=== PATIENT | male | born 1945 | race Caucasian/White ===

== ENCOUNTER 2017-07-20 14:00 | Outpatient (RCR) | payer MEDICARE, OTHER, SELFPAY ==
--- NOTE | 2017-06-30 15:39 | HP.PTEVAL_ITS ---
Patient's Visit Information MARY JOHNSON is a 71 year old M referred to Physical Therapy by Ama WILLIAM with a diagnosis of ONychomycosis, Pes Cavus. Date of Evaluation: 06/30/17 Physical Therapist: Flaca An - Visit Plan Frequency: 1x/Week Duration: 4 Weeks Plan: Orthotics - Subjective Subjective: Saw the modiatrist who told him his great toe is not taking the weight properly. Took a scalpal to them and took the callus off- is now wearing something on the foot to take the pressure off- glued to the insert. Has had foot problems and has used sand paper to wear down the callus on them. Very active. Has one on the side and the bottom- the bottom hurts the most. - Objective Posture: FH, RS. Gait: increased pronation and first ray harder towards flooor. SLS: increased pronation- able to SLS for 5 sec without LOB. HR/TR: WNL. ROM: DF: 5 degrees, PF: 60 degrees, Inver: 30 degrees, Ever: 15 degrees. Strength: 5/5 throughout - Goals Goal 1:: Patient will be fit appropriatly with orthotics Goal Time Frame: 4-6 Weeks Goal 2:: Patient will report 0/10 pain with orthotics Goal Time Frame: 4-6 Weeks Goal 3:: Patient will verbalize understanding of orthotic management and wear Goal Time Frame: 4-6 Weeks - Rehabilitation Potential Physical Therapy Diagnosis: Patient presents with hypmobility- he has increased pain with ADL's Rehabilitation Potential: Good - Anticipated Interventions Thank you for the opportunity to evaluate your patient. For Medicare and Medicare HMO plans, please review the plan of care and approve it. It will need to be FAXED BACK to us at [phone] for Medicare purposes. Please let me know if there are questions or concerns regarding this plan of care. Physician Signature: Date:
--- NOTE | 2017-08-29 10:34 | HP.PT.NRP ---
HP - Discharge Summary (1) - Patient Information MARY JOHNSON was seen in my office for initial evaluation on 06/30/17. The following Plan of Care was established for this patient: Initial Frequency: 1x/Week Initial Duration: 4 Weeks This patient was last seen in our office . Pertinent comments regarding their Physical therapy will appear below: Patient recieved orthotics and is appropriate for d/c At this point I will be discontinuing this patient from physical therapy. I would be happy to see this patient again in the future if found appropriate by the physician. Thank you! Flaca An
== END 2017-07-20 19:00 | disposition home or self-care (01) ==
LOC: PT 14:00
PROVIDERS: Family Provider Family Medicine; PCP Family Medicine; Visit Provider Podiatrist Foot & Ankle Surgery
DX: B35.1 Tinea unguium (principal); L84 Corns and callosities; Q66.7 Congenital pes cavus
CPT/HCPCS: 97161; 97760; 97763

== ENCOUNTER → 2019-01-11 09:52 | Outpatient (CLI) | payer MEDICARE, OTHER, SELFPAY ==
[2018-12-26 10:45] VITALS: BMI 24.3
--- NOTE | 2019-01-11 09:55 | STEWCON_ITS ---
Reason For Study: CAD Stress Results Protocol: Kennedy Protocol Maximum Predicted HR: 147 bpm Target HR: 125 bpm % Maximum Predicted HR: 93 % DurationHeart Rate Stage (mm:ss) (bpm) BP Comment Baseline 56 130/80No Chest Pain; Diluted Definity 3 ML Given Kennedy Protocol Stage I 3:00 90 128/68No Chest Pain Kennedy Protocol Stage II 3:00 107 142/60No Chest Pain Kennedy Protocol Stage III 3:00 125 160/66No Chest Pain Kennedy Protocol Stage IV 1:00 137 / No Chest Pain Recovery 71 118/78No Chest Pain Stress Duration: 10:00 mm:ss Maximum Stress HR: 137 bpm METS: 13 Baseline Echocardiogram Findings The estimated ejection fraction is 65 %. Stress Echo Wall motion Data Resting WM Intermediate WM Stress WM Resting Wall Motion Wall Motion Stress No regional wall motion No regional wall motion abnormalities noted. abnormalities noted. EKG Data The baseline ECG displays normal sinus rhythm. The patient exercised according to the regular Kennedy protocol for a total duration of 10:00. The maximum heart rate attained was 139 beats per minute. This was 94% of maximum predicted heart rate. The patient exercised into stage 4 of the Kennedy protocol. At peak exercise, upsloping ST changes only were noted, which did not meet the criteria for ischemia. No clinical angina was noted. Interpretation Summary The estimated ejection fraction is 65 %. Normal, adequate, treadmill echocardiogram. Negative for ischemia by EKG and echocardiographic criteria. No anginal symptoms noted. Rare PVC noted. Appropriate blood pressure response to exercise. Final LVEF is 75%. Test terminated due to the attainment of target heart rate and dyspnea. Decreased sensitivity due to poor echo windows requiring Definity agent. No complications. The study was technically difficult. Contrast injection was performed. Ordering Physician: Johny Brannon Referring Physician: MD Diana Dominic Performed By: Jairo Sanchez RCS
== END ==
PROVIDERS: Family Provider Family Medicine; PCP Family Medicine; Referring Provider Internal Medicine Cardiovascular Disease; Visit Provider Internal Medicine Cardiovascular Disease
DX: I25.10 Atherosclerotic heart disease of native coronary artery without angina pectoris (principal); I10 Essential (primary) hypertension; I73.9 Peripheral vascular disease, unspecified; E78.5 Hyperlipidemia, unspecified; I25.2 Old myocardial infarction; Z98.890 Other specified postprocedural states; Z95.5 Presence of coronary angioplasty implant and graft
CPT/HCPCS: 93017; 93350; Q9957; A4216; C8928

== ENCOUNTER → 2019-04-09 10:48 | Outpatient (CLI) | payer MEDICARE, OTHER, SELFPAY ==
[2018-12-26 10:45] VITALS: BMI 24.3
[2019-04-09 12:12] LABS: Anion Gap 6 (5-15); Chloride 106 mmol/L (98-107); Sodium Level 142 mmol/L (136-145); Thyroid Stim Hormone (TSH) 3.02 uIU/mL (0.358-3.74)
[2019-04-09 12:24] LABS: Vitamin B12 700 pg/mL (211-911)
== END ==
PROVIDERS: Family Provider Family Medicine; PCP Family Medicine; Referring Provider Psychiatry & Neurology Neurology; Visit Provider Psychiatry & Neurology Neurology
DX: R41.3 Other amnesia (principal)
CPT/HCPCS: 36415; 80051; 82607; 84443

== ENCOUNTER → 2019-04-23 09:20 | Outpatient (CLI) | payer MEDICARE, OTHER, SELFPAY ==
[2018-12-26 10:45] VITALS: BMI 24.3
--- NOTE | 2019-04-23 09:27 | MRI_ITS ---
STUDY: MRI BRAIN WITH AND WITHOUT CONTRAST REASON FOR EXAM: Male, 73 years old. Memory loss TECHNIQUE: Standardized multiplanar fat and water weighted pulse sequences were obtained. IV Dotarem 15 was administered for the contrast portion of the examination. COMPARISON: None. FINDINGS: Mild age appropriate atrophy and minor periventricular white matter hyperintensity consistent with aging white matter. No significant white matter disease or evidence for acute infarct.. Normal bilateral basal ganglia. Normal thalami. There is no extra-axial fluid accumulation. Normal flow voids within the major intracranial circulation suggesting patency by spin echo criteria. Normal venous enhancement. There is no enhancing intra-axial or extra-axial abnormality. Normal sella turcica, pituitary gland, infundibular stalk, optic chiasm and hypothalamus. Normal tectal plate and pineal gland. Normal midbrain, margarito and medulla. Normal cerebellum. Normal basal cisterns. Normal bilateral temporal bones. Normal bilateral internal auditory canals. No demonstrated orbital abnormality, within the constraints of a routine brain study. Minor mucosal thickening of the maxillary and ethmoid sinuses.. Normal calvarium and skull base. Normal visualized soft tissue structures. Normal visualized upper cervical spine. MRI/Brain W/WO Contrast IMPRESSION: Unremarkable MRI of the brain with and without contrast for age. Minor bilateral ethmoid and maxillary sinus disease Electronically Signed: Deven Del Rio MD at 16:34 EST , Service support ,
[2019-04-23 09:56] LABS: CREATININE FINGERSTICK 0.7 mg/dL (0.70-1.30); EGFR FINGERSTICK > 60.0000 mL/min (>60)
== END ==
PROVIDERS: Family Provider Family Medicine; PCP Family Medicine; Referring Provider Psychiatry & Neurology Neurology; Visit Provider Psychiatry & Neurology Neurology
DX: R41.3 Other amnesia (principal)
CPT/HCPCS: 70553; A9575

== ENCOUNTER → 2019-07-11 08:14 | Outpatient (CLI) | payer MEDICARE, OTHER, SELFPAY ==
[2019-07-05 13:54] VITALS: BMI 25.4
[2019-07-11 09:05] LABS: AST(SGOT) 22 U/L (15-37); Alanine Aminotransfer ALT/SGPT 31 U/L (16-61); Albumin, Serum 3.7 g/dL (3.2-5.0); Alkaline Phosphatase 69 U/L (45-117); Bilirubin, Direct 0.18 mg/dL (0.00-0.30); Cholesterol 121 mg/dL (200); Globulin 3.1 g/dL (2.2-4.2); High Density Lipoprotein 53 mg/dL; Protein, Total 6.8 g/dL (6.4-8.2); Triglycerides 61 mg/dL; Very Low Density Lipoprotein 12 mg/dL (5-40)
== END ==
PROVIDERS: PCP Family Medicine; Referring Provider Internal Medicine Cardiovascular Disease; Visit Provider Internal Medicine Cardiovascular Disease
DX: I25.10 Atherosclerotic heart disease of native coronary artery without angina pectoris (principal); E78.5 Hyperlipidemia, unspecified
CPT/HCPCS: 36415; 80061; 80076

== ENCOUNTER 2019-08-03 12:49 | Outpatient (RCR) | payer MEDICARE, OTHER, SELFPAY ==
[2019-07-05 13:54] VITALS: BMI 25.4
--- NOTE | 2019-08-03 13:55 | HP.PTEVAL_ITS ---
Patient's Visit Information MARY JOHNSON is a 73 year old M referred to Physical Therapy by Clari Lopez with a diagnosis of CONGENTIAL PES CAVUS. Date of Evaluation: 08/03/19 Physical Therapist: Augusto Duarte PT, Cert MDT, OCS - Visit Plan Frequency: 2vists Duration: 1 Week - Subjective Subjective: This 73 y/o male presents to physical therapy with physical therapy for pes cavus . Patient requires new orthotics . Patient is very active and does have pain 1st metatarseal with callullus. Thus ,patient will benifit from orthtics due to be active. Patient plays Tennis. Patient denies parathesia/tingling. Pateint conidtion with benifit from fabricated orthotics. SOCAIL: . HOBBIES: Yoga ,Tennis - Objective POSTURE: pes planus. GAIT: normal erika. PALPATION: unremarkable. NEURO: intact. AROM: dorsiflexion 0 degrees,planterflexion 60 degrees,EVERSION 5 degrees,inversion 30 degrees. MMT: ankle stabilizers 4/5. FLEXABLITY: calf min tight - Goals Goal 1:: Patient will be provided with orthotics with appropriate and ensure fitting is appropriate. - Rehabilitation Potential Physical Therapy Diagnosis: This patient has pes cavus thus will benifit from fabraicated orthotics. Rehabilitation Potential: Good - Anticipated Interventions Patient/Client Instruction: Educate patient on: Condition, Plan of Care For the Purpose of:: To decrease pain, Other Other: orthotics Thank you for the opportunity to evaluate your patient. For Medicare and Medicare HMO plans, please review the plan of care and approve it. It will need to be FAXED BACK to us at [phone] for Medicare purposes. For Medicare only, by signing this I certify the plan of care. Please let me know if there are questions or concerns regarding this plan of care. Physician Signature: Date:
--- NOTE | 2020-01-15 09:00 | HP.PT.NRP ---
MARY JOHNSON was seen in my office for initial evaluation on 08/03/19. The following Plan of Care was established for this patient: Initial Frequency: 2vists Initial Duration: 1 Week Patient/Client Instruction: Educate patient on: Condition, Plan of Care For the Purpose of:: To decrease pain, Other Other: orthotics This patient was last seen in our office . Pertinent comments regarding their Physical therapy will appear below: Patient provided with orthotics and D/C At this point I will be discontinuing this patient from physical therapy. I would be happy to see this patient again in the future if found appropriate by the physician. Thank you! Augusto Duarte, PT, Cert MDT, OCS
== END 2019-08-03 19:00 | disposition home or self-care (01) ==
LOC: PT 12:49
PROVIDERS: PCP Family Medicine; Referring Provider Podiatrist; Visit Provider Podiatrist
DX: Q66.70 Congenital pes cavus, unspecified foot (principal)
CPT/HCPCS: 97162; 97760

== ENCOUNTER 2019-12-24 11:56 | Emergency (ER) | payer MEDICARE, OTHER, SELFPAY ==
[2019-07-05 13:54] VITALS: BMI 25.4
[2019-12-24 11:57] VITALS: BP 142/82; PULSE 57; RESP 16; TEMP 36.6; O2SAT 99; BMI 24.3
--- NOTE | 2019-12-24 12:46 | ED.DCSUM_ITS ---
History of Present Illness Chief Complaint: Laceration Informant: Patient Onset: Today Current Severity: Mild Maximum Severity: Mild Narrative: Patient presents with laceration to the distal aspect of the right thumb. He states he caught it on a belt snuff grinder. Tetanus is up-to-date. He is right-hand dominant. - Past Medical History (1) Atherosclerosis of coronary artery without angina pectoris Status: Chronic Comment: Acute NSTEMI. 80% stenosis in large mid LAD, 70% stenosis in a large first diagonal; total occlusion in large right PDA of RCA. RCA itself is normal. Left to right collaterals fill late. LCX: normal per [facility] done by Dr. Pooja Mcallister, [facility] 05/01/13.A 2.5 X 12 Promus Premier to distal PDA of RCA was then subsequently placed by Dr. Mcallister on 05/01/2013. A 3.0 X 24 mm Promus Premier to mid LAD per [facility] 06/21/2013. (2) Essential hypertension Status: Chronic (3) History of non-ST elevation myocardial infarction (NSTEMI) Status: Chronic (4) Hyperlipidemia Status: Chronic (5) Peripheral vascular disease Status: Chronic (6) Stented coronary artery Status: Chronic Comment: 05/01/2013: 2.5 X 12 Promus Premier to distal PDA of RCA. 06/21/2013:3.0 X 24 mm Promus Premier to mid LAD per Dr. Pooja Hussein, [facility] Past Medical History - Allergies and Home Meds Allergies/Adverse Reactions: Allergies mold Allergy (Intermediate, Verified 12/24/19 11:59) nasal congestion, etc. pollen extracts Allergy (Intermediate, Verified 12/24/19 11:59) nasal congestion, etc. ticagrelor [From Brilinta] Allergy (Intermediate, Verified 12/24/19 11:59) Rash doxycycline Allergy (Verified 12/24/19 11:59) Rash Primary Care Physician: Deven Ortiz MD [Primary Care Provider] - Prior records reviewed: Yes Lives: Spouse/ Significant Other Smoking Status: Never smoker Review of Systems General: Denies: Chills, Fever Eyes: Denies: Visual changes - bilaterally ENT: Denies: Bilateral ear pain Cardiovascular: Denies: Chest pain Respiratory: Denies: Dyspnea, Cough Gastrointestinal: Denies: Abdominal pain, Nausea, Vomiting, Diarrhea Musculoskeletal: Reports: Extremity Pain Skin: Reports: Wounds Neurological: Denies: Headache Hematologic: Denies: Easy bruising, Easy bleeding Allergy: Denies: Uticaria Physical Exam Vital Signs/Narrative: Vital Signs Temp Pulse Resp BP Pulse Ox 12/24/19 11:57 97.8 F 57 L 16 142/82 H 99 Inital Vital Signs reviewed: Yes General: Well nourished, Well developed Head: Normocephalic ENT: Moist mucous membranes Neck: Supple Cardiovascular: Regular rate, Regular rhythm Respiratory: No distress, CTA bilaterally Abdomen: Soft Extremities: - - Flap laceration measuring approximately 2 cm in length to the distal aspect of the right thumb. Bleeding controlled at this time. Sensation intact distally with full range of motion. Good cap refill. Neurological: Alert, Oriented x3, Normal Strength, Normal Sensation Psychological: Normal affect Diagnostic/Tx/Re-eval - Medical Decision Making Tetanus is already up-to-date. Thumb is anesthetized with 3 cc of 1% lidocaine in a digital block. Wound is cleansed and closed with 5 simple interrupted sutures of 5-0 nylon. Patient is to have sutures removed in 1 week. Procedures - Lacerations No standard instances Length: 0.79 in Depth: Skin Shape: Flap Prep: Shure-Clens Laceration repair: Digital block Number of Sutures/Paxton: 5 Suture Information: Ethilon, 5-0 ED Disposition - Plan for ED Patient: Disposition: Home or Assisted Living Diagnosis: Thumb laceration Instructions: ED Laceration Hand Referrals: Deven Ortiz MD [Primary Care Provider] - 7 Days for suture removal
[2019-12-24 13:27] VITALS: BP 138/80; PULSE 82; RESP 17; O2SAT 97
== END 2019-12-24 13:28 | disposition home or self-care (01) ==
PROVIDERS: Emergency Provider Emergency Medicine; PCP Family Medicine
DX: S61.011A Laceration without foreign body of right thumb without damage to nail, initial encounter (principal); W31.89XA Contact with other specified machinery, initial encounter; Y93.9 Activity, unspecified; Y92.9 Unspecified place or not applicable; Y99.9 Unspecified external cause status; E78.5 Hyperlipidemia, unspecified; I10 Essential (primary) hypertension; I25.10 Atherosclerotic heart disease of native coronary artery without angina pectoris; I25.2 Old myocardial infarction; I73.9 Peripheral vascular disease, unspecified; Z95.5 Presence of coronary angioplasty implant and graft
CPT/HCPCS: 12001; 99284

== ENCOUNTER → 2020-08-26 07:55 | Outpatient (CLI) | payer MEDICARE, OTHER, SELFPAY ==
[2020-08-13 10:02] VITALS: BMI 25.5
[2020-08-26 09:27] LABS: AST(SGOT) 31 U/L (15-37); Alanine Aminotransfer ALT/SGPT 29 U/L (16-61); Albumin, Serum 3.7 g/dL (3.2-5.0); Alkaline Phosphatase 77 U/L (45-117); Bilirubin, Direct 0.28 mg/dL (0.00-0.30); Cholesterol 116 mg/dL (200); Globulin 2.9 g/dL (2.2-4.2); High Density Lipoprotein 57 mg/dL; Protein, Total 6.6 g/dL (6.4-8.2); Triglycerides 41 mg/dL; Very Low Density Lipoprotein 8 mg/dL (5-40)
== END ==
PROVIDERS: PCP Family Medicine; Referring Provider Nurse Practitioner Family; Visit Provider Nurse Practitioner Family
DX: E78.00 Pure hypercholesterolemia, unspecified (principal); E78.5 Hyperlipidemia, unspecified
CPT/HCPCS: 36415; 80061; 80076

== ENCOUNTER → 2021-03-02 13:00 | Outpatient (CLI) | payer MEDICARE, OTHER, SELFPAY | PROVIDERS: PCP Family Medicine; Referring Provider Physician Assistant Surgical; Visit Provider Physician Assistant Surgical | DX: Z11.52 Encounter for screening for COVID-19 (principal) | CPT/HCPCS: 87635; U0005; U0003 ==

== ENCOUNTER 2021-07-31 08:21 | Outpatient (CLI) | payer MEDICARE, OTHER, SELFPAY ==
[2021-07-31 09:22] LABS: Absolute Lymphocyte Count 0.71 X10^3/uL (0.83-4.51); Absolute Neutrophil Count 3.1 X10^3/uL (2.0-7.7); Basophil# 0.04 X10^3/uL; Basophil% 0.9 % (0-1); Eosinophil# 0.15 X10^3/uL; Eosinophils% 3.3 % (0-5); Hematocrit 40.8 % (40-54); Hemoglobin 13.3 g/dL (13.0-16.5); Lymphocyte # 0.71 X10^3/ul (0.83-4.51); Lymphocyte % 15.8 % (19-41); Mean Corp Hgb Conc 32.6 g/dL (32-36); Mean Corpuscular Hgb 32.2 pg (27.0-32.0); Mean Corpuscular Volume 98.8 fL (80-94); Mean Platelet Vol. 9.6 fl (6.2-12.0); Monocyte# 0.48 X10^3/uL; Monocyte% 10.7 % (0-10); NRBC Flagged by Analyzer 0 % (0-5); Neutrophil # 3.11 X10^3/uL (2.7-7.7); Neutrophil % 69.1 % (47-70); Platelet Count 173 K/mm3 (150-450); RBC Distribution Width CV 14.6 % (11.6-14.6); RBC Distribution Width SD 53.5 fl (35.1-43.9); Red Blood Count 4.13 M/mm3 (4.6-6.2); White Blood Count 4.5 K/mm3 (4.4-11.0)
[2021-07-31 09:55] LABS: AST(SGOT) 22 U/L (15-37); Alanine Aminotransfer ALT/SGPT 27 U/L (16-61); Albumin, Serum 3.8 g/dL (3.2-5.0); Alkaline Phosphatase 70 U/L (45-117); Anion Gap 3 (5-15); BUN 19 mg/dL (7-18); BUN/Creat Ratio 19.2 RATIO (10-20); Bilirubin, Direct 0.18 mg/dL (0.00-0.30); Calcium,Total 8.3 mg/dL (8.5-10.1); Chloride 108 mmol/L (98-107); Cholesterol 120 mg/dL (200); Creatinine, Serum 0.99 mg/dL (0.70-1.30); EST Glomerular Filtration Rate 78 mL/min (>60); Est Glom Filt Rate - Afr Amer 95 mL/min (>60); Globulin 3.3 g/dL (2.2-4.2); Glucose 88 mg/dL (74-106); High Density Lipoprotein 52 mg/dL; Potassium 3.9 mmol/L (3.5-5.1); Protein, Total 7.1 g/dL (6.4-8.2); Sodium Level 139 mmol/L (136-145); Triglycerides 47 mg/dL; Very Low Density Lipoprotein 9 mg/dL (5-40)
== END 2021-07-31 23:59 | disposition home or self-care (01) ==
LOC: LAB 08:24
PROVIDERS: PCP Family Medicine; Visit Provider Nurse Practitioner Gerontology
DX: E78.00 Pure hypercholesterolemia, unspecified (principal); E78.5 Hyperlipidemia, unspecified; R53.83 Other fatigue
CPT/HCPCS: 36415; 80048; 80061; 80076; 85025

== ENCOUNTER → 2023-07-13 | Outpatient (CLI) | payer MEDICARE, OTHER, SELFPAY ==
--- OUTSIDE RECORDS SUMMARY | 2023-07-13 06:58 | XMS RPT_ITS | CCD ---
Author Name Unknown Address [address] [facility] [address] [place] [address] Organization [facility] Care Team Providers Care Knockout Machine Operator Name Role Phone ROLA CHARLES Unavailable Unavailable BRANDI YIN Unavailable Unavailable ROLA CHARLES Unavailable Unavailable ROLA CHARLES Unavailable Unavailable IMCA Unavailable Unavailable Deven Rodriguez Unavailable Unavailable ROLA CHARLES Unavailable Unavailable ROLA CHARLES Unavailable Unavailable Deven Rodriguez Unavailable Unavailable ROLA CHARLES Unavailable Unavailable Deven Rodriguez Unavailable Unavailable ABENA HEATH Admitting Unavailable ABENA HEATH Attending Unavailable ABENA HEATH Referring Unavailable Mami Rodriguez MD Primary Care Provider Mami Rodriguez MD Primary Care Provider Mami Rodriguez MD Primary Care Provider Mami Rodriguez MD Primary Care Provider MAMI RODRIGUEZ Attending Unavailable MAMI RODRIGUEZ Referring Unavailable MAMI RODRIGUEZ Primary Care Unavailable MONICA CHATTERJEE Referring Unavailable MAMI RODRIGUEZ Primary Care Unavailable MAMI RODRIGUEZ Primary Care Unavailable MAMI RODRIGUEZ Attending Unavailable MAMI RODRIGUEZ Primary Care Unavailable Allergies Allergy Classification Reported Allergen(s) Allergy Type Date of Onset Reaction(s) Facility (20 sources) doxycycline; Translations: [DOXYCYCLINE] Drug Allergy 0 [facility] Repository (20 sources) ticagrelor; Translations: [TICAGRELOR] Drug Allergy 4 Itching [facility] Repository (4 sources) OTHER; Translations: [OTHER] Propensity to adverse reactions (disorder) 1 AOF [facility] Other [place] Repository (20 sources) Environmental allergies [Other] Propensity to adverse reactions 1 Other: See Comments [facility] Medications Completed/Discontinued Medications Medication Drug Class(es) Dates Sig (Normalized) Sig (Original) aspirin 81 mg chewable tablet (20 sources) Platelet Aggregation Inhibitor, Nonsteroidal Anti-inflammatory Drug Start: 04-26-2013 take 1 tablet by mouth once daily aspirin 81 mg chewable tablet Take 1 tablet by mouth once daily. 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; Translations: [Coronary arteriosclerosis] Onset: 04-25-2013 06-09-2022 Chronic Delirium, dementia, and amnestic and other cognitive disorders (1 source) Senile dementia; Translations: [Alzheimer's disease with late onset] Chronic Disorders of lipid metabolism (20 sources) Hypercholesterolemia; Translations: [Pure hypercholesterolemia, unspecified] Onset: 08-10-2013 08-10-2013 Chronic Disorders of lipid metabolism (1 source) Pure hypercholesterolemia, unspecified; Translations: [Pure hypercholesterolemia, unspecified] Onset: 08-10-2013 Essential hypertension (20 sources) Essential (primary) hypertension; Translations: [Essential hypertension] Onset: 12-30-2016 12-30-2016 Chronic Hyperplasia of prostate (20 sources) Nocturia due to benign prostatic hypertrophy; Translations: [Benign prostatic hyperplasia with lower urinary tract symptoms] Onset: 06-09-2022 Chronic Immunizations and screening for infectious disease (3 sources) Vaccination given; Translations: [Encounter for immunization] Episodic Other ear and sense organ disorders (17 sources) Hearing loss; Translations: [Unspecified hearing loss, unspecified ear] Onset: 06-09-2022 06-09-2022 Chronic Other ear and sense organ disorders (17 sources) Sensorineural hearing loss, bilateral; Translations: [Sensorineural hearing loss, bilateral] Onset: 06-09-2022 06-09-2022 Chronic Other hereditary and degenerative nervous system conditions (20 sources) Impaired cognition; Translations: [Mild cognitive impairment, so stated] Onset: 03-20-2021 03-20-2021 Chronic Other male genital disorders (20 sources) Male erectile dysfunction, unspecified; Translations: [Impotence of organic origin] Onset: 04-07-2012 04-07-2012 Chronic Other screening for suspected conditions (not mental disorders or infectious disease) (1 source) Patient encounter status; Translations: [Encounter for screening for cardiovascular disorders] Episodic Other upper respiratory disease (20 sources) Allergic rhinitis; Translations: [Allergic rhinitis, unspecified] Onset: 11-30-2010 11-30-2010 Chronic Peripheral and visceral atherosclerosis (20 sources) Peripheral vascular disease; Translations: [Peripheral vascular disease, unspecified] Onset: 04-25-2013 Chronic Residual codes; unclassified (17 sources) Sleep apnea; Translations: [Sleep apnea, unspecified] Onset: 06-09-2022 06-09-2022 Chronic Residual codes; unclassified (1 source) Amnestic disorder; 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] Episodic Unclassified (1 source) Unknown / UNK(Unknown) Onset: 07-04-2017 Past or Other Problems Problem Classification Problem Date Documented Da te Episodic/Chronic Abdominal hernia (20 sources) Unilateral inguinal hernia, without obstruction or gangrene, not specified as recurrent; Translations: [Unilateral inguinal hernia] Onset: 01-19-2010 01-19-2010 Episodic Allergic reactions (20 sources) Solar degeneration; Translations: [Other skin changes due to chronic exposure to nonionizing radiation] Onset: 11-23-2013 11-23-2013 Episodic Coronary atherosclerosis and other heart disease (20 sources) Stent in anterior descending branch of left coronary artery; Translations: [Presence of coronary angioplasty implant and graft] Onset: 08-19-2014 08-19-2014 Episodic Other skin disorders (20 sources) Actinic keratosis; Translations: [Actinic keratosis] Onset: 11-23-2013 11-23-2013 Episodic Other skin disorders (20 sources) Solar lentigo; Translations: [Other melanin hyperpigmentation] Onset: 11-23-2013 11-23-2013 Episodic Other skin disorders (20 sources) Seborrheic keratosis; Translations: [Other seborrheic keratosis] Onset: 11-23-2013 11-23-2013 Episodic Other skin disorders (20 sources) Asteatosis cutis; Translations: [Xerosis cutis] Onset: 11-23-2013 11-23-2013 Episodic Other skin disorders (20 sources) Changes in skin texture; Translations: [Other skin changes] Onset: 12-23-2013 12-23-2013 Episodic Results Test Name Value Interpretation Reference Range Facil ity Vital Signs Date Time Vital Sign Value Performing Clinician Sd lo 06-09-2022 16:04-0500 Body height 177.8 cm Mami Rodriguze MD Work Phone: [facility] 06-09-2022 16:04-0500 Body weight 78.47 kg Mami Rodriguez MD Work Phone: [facility] 06-09-2022 16:04-0500 Diastolic blood pressure 75 mm[Hg] Mami Rodriguez MD Work Phone: [facility] 06-09-2022 16:04-0500 Heart rate 69 /min Mami Rodriguez MD Work Phone: [facility] 06-09-2022 16:04-0500 SaO2% (BldA) [Mass fraction] 98 % Mami Rodriguez MD Work Phone: [facility] 06-09-2022 16:04-0500 Systolic blood pressure 127 mm[Hg] Mami Rodriguez MD Work Phone: [facility] 11-09-2021 12:35-0400 Diastolic blood pressure 89 mm[Hg] Belem Rg APRN.DELIVERY STOCK CLERK Work Phone: [facility] 11-09-2021 12:35-0400 Heart rate 63 /min Belem Rg VRT MECHANIC.DELIVERY STOCK CLERK Work Phone: [facility] 11-09-2021 12:35-0400 Systolic blood pressure 169 mm[Hg] Belem Rg VRT MECHANIC.DELIVERY STOCK CLERK Work Phone: [facility] Encounters Encounter Date Encounter Type Care Provider Facility Start: 04-23-2023 Refill Monica Chatterjee A PRN.DELIVERY STOCK CLERK Work Phone: Family Practice Procedures Date Procedure Procedure Detail Performing Clinician Start: 10-19-2022 [facility] COVI D-19 BIVALENT VACCINE, AGE 12+ YR Monica Chatterjee VRT MECHANIC.DELIVERY STOCK CLERK Work Phone: Start: 10-12-2021 [facility]-B[facility] COVI D-19 VACCINE, AGE 12+ YR (FALCON TOP) Mami Rodriguez MD Work Phone: Start: 07-07-2021 Adult depression screening assessment Rico Pelayo Jr., MD Work Phone: Start: 05-30-2018 Colonoscopy Rico daley Jr., MD Work Phone: Start: 08-19-2014 History of placement of stent for coronary artery disease S/P right coronary artery (RCA) stent placement Rico Pelayo Jr., MD Work Phone: Plan of Treatment Date Care Activity Detail Author Start: 10-29-2031 Urine microalbumin profile [facility] Start: 05-05-2030 Urine microalbumin profile DTAP,TDAP,TD (3 - Td or Tdap) [facility] Start: 05-30-2028 Colonoscopy COLONOSCOPY [facility] Start: 05-30-2028 COLORECTAL CANCER SCREENING COLORECTAL CANCER SCREENING [facility] Start: 03-24-2026 LIPID SCREEN LIPID SCREEN [facility] Start: 12-14-2025 DIABETES SCREEN DIABETES SCREEN [facility] Start: 12-14-2025 Diabetes Screening Diabetes Screening [facility] Start: 03-24-2024 DIABETES SCREEN DIABETES SCREEN [facility] Start: 02-17-2024 Annual PCP Team Chronic Disease Visit Annual PCP Team Chronic Disease Visit [facility] Start: 02-17-2024 BP Controlled (<130/80) BP Controlled (<130/80) [facility] Start: 12-15-2023 Hepatitis B surface antibody level LDL CHOLESTEROL [facility] Start: 06-09-2023 ANNUAL PCP TEAM CHRONIC DISEASE VISIT ANNUAL PCP TEAM CHRONIC DISEASE VISIT [facility] Start: 06-09-2023 BP CONTROLLED (<130/80) BP CONTROLLED (<130/80) [facility] Start: 01-21-2023 Influenza vaccination [facility] Start: 07-07-2022 Adult depression screening assessment DEPRESSION SCREENING [facility] Start: 06-09-2022 End: 08-09-2022 Comprehensive metabolic 2000 panel - Serum or Plasma COMP METABOLIC PANEL Lab Routine Essential hypertension Expected: 06/09/2022, Expires: 08/09/2022 [facility] Work Phone: Immunizations Immunization Date Immunization Notes Care Provider John ndiaye 04-01-2023 respiratory syncytia l virus (RSV) vaccine, bivalent (ABRYSVO) Monica Chatterjee APRN.DELIVERY STOCK CLERK Work Phone: [facility] 02-10-2023 COVID-19 vaccine, ag e 12+ yr, season (PFIZER-BIONTECH) Belem Rg APRN.DELIVERY STOCK CLERK Work Phone: [facility] 02-10-2023 influenza (aIIV4) vaccine, age 65+ yr, quadrivalent, PF (FLUAD QUAD) Belem Rg APRN.DELIVERY STOCK CLERK Work Phone: [facility] 10-19-2022 COVID-19 vaccine, ag e 12+ yr, bivalent (PFIZER-BIONTECH) Nurse Work Phone: [facility] 02-20-2022 influenza (aIIV4) vaccine, age 65+ yr, quadrivalent, PF (FLUAD QUADRIVALENT) Mami Rodriguez MD Work Phone: [facility] 02-20-2022 influenza nasal, unspecified formulation Belem Rg APRN.DELIVERY STOCK CLERK Work Phone: [facility] 02-20-2022 influenza virus vacc ine, unspecified formulation Rico Pelayo Jr., MD Work Phone: [facility] 10-28-2021 tetanus toxoid, redu karen diphtheria toxoid, and acellular pertussis vaccine, adsorbed Mami Rodriguez MD Work Phone: [facility] 10-12-2021 COVID-19 vaccine, ag e 12+ yr (P[facility]ZER-BIONTECH - FALCON TOP) Belem Rg APRN.DELIVERY STOCK CLERK Work Phone: [facility] 02-23-2021 COVID-19 vaccine, ag e 12+ yr (PFIZER-BIONTECH - PURPLE TOP) Belem Rg APRN.DELIVERY STOCK CLERK Work Phone: [facility] 02-20-2021 influenza nasal, unspecified formulation Mami Rodriguez MD Work Phone: [facility] 02-09-2021 influenza, high dose seasonal, preservative-free Rico Pelayo Jr., MD Work Phone: [facility] 07-14-2020 COVID-19 vaccine, ag e 12+ yr ([facility] Rico Pelayo Jr., MD Work Phone: [facility] 06-23-2020 COVID-19 vaccine, ag e 12+ yr ([facility]) Rico Pelayo Jr., MD Work Phone: [facility] 05-05-2020 tetanus toxoid, redu karen diphtheria toxoid, and acellular pertussis vaccine, adsorbed Rico Pelayo Jr., MD Work Phone: [facility] 01-28-2020 influenza, injectabl e, quadrivalent, contains preservative Rico Pelayo Jr., MD Work Phone: [facility] 01-28-2020 unknown vaccine or immune globulin Rico Pelayo Jr., MD Work Phone: [facility] 01-22-2020 influenza nasal, unspecified formulation Mami Rodriguez MD Work Phone: [facility] 12-27-2019 zoster vaccine recombinant Rico Pelayo Jr., MD Work Phone: [facility] 07-20-2019 zoster vaccine recombinant Rico Pelayo Jr., MD Work Phone: [facility] 01-30-2019 Seasonal trivalent influenza vaccine, adjuvanted, preservative free Rico Pelayo Jr., MD Work Phone: [facility] 02-20-2018 influenza, high dose seasonal, preservative-free Rico Pelayo Jr., MD Work Phone: [facility] 02-12-2017 tetanus toxoid, redu karen diphtheria toxoid, and acellular pertussis vaccine, adsorbed Rico Pelayo Jr., MD Work Phone: [facility] 01-06-2017 Seasonal trivalent influenza vaccine, adjuvanted, preservative free Rico Pelayo Jr., MD Work Phone: [facility] 05-25-2016 pneumococcal conjuga te vaccine, 13 valent Rico Pelayo Jr., MD Work Phone: [facility] 04-08-2016 influenza, seasonal, injectable Rico Pelayo Jr., MD Work Phone: [facility] 04-08-2016 influenza, seasonal, injectable, preservative free Rico Pelayo Jr., MD Work Phone: [facility] 03-23-2015 influenza, high dose seasonal, preservative-free Rico Pelayo Jr., MD Work Phone: [facility] 02-20-2015 influenza nasal, unspecified formulation Mami Rodriguez MD Work Phone: [facility] 02-20-2015 pneumococcal conjuga te vaccine, 13 valent Mami Rodriguez MD Work Phone: [facility] 06-15-2014 pneumococcal polysaccharide vaccine, 23 valent Rico Pelayo Jr., MD Work Phone: [facility] 02-20-2014 influenza nasal, unspecified formulation Mami Rodriguez MD Work Phone: [facility] 02-26-2013 influenza virus vacc ine, unspecified formulation Rico Pelayo Jr., MD Work Phone: [facility] 01-21-2013 influenza nasal, unspecified formulation Mami Rodriguez MD Work Phone: [facility] 03-03-2011 influenza virus vacc ine, unspecified formulation Rico Pelayo Jr., MD Work Phone: [facility] Work Phone: 09-20-2008 pneumococcal polysaccharide vaccine, 23 valent Rico Pelayo Jr., MD Work Phone: [facility] 09-20-2008 pneumococcal vaccine , unspecified formulation Mami Rodriguez MD Work Phone: [facility] Payers Date Payer Category Payer Unknown [id number] [address] [facility] [id number] 2013-Present [phone] [address] [place] [address] Indemnity [id number] 2013 Private Health Insurance [id number] 2010 Medicare MEDICARE MEDICAR E A AND B [id number] 2010-Present [phone] [place] [address] Medicare [id number] 2010 Medicare MEDICARE MEDICAR E A AND B [id number] 2010-Present [phone] [place] [address] Medicare [id number] 2010 Medicare [id number] Medicare [id number] Social History Date Type Detail Facility Start: 06-05-2013 End: 06-09-2022 Tobacco smoking status NHIS Never smoked tobacco [facility] Start: 07-08-2021 End: 02-16-2023 Alcohol intake Ex-drinker (finding) [facility] Start: 03-22-2021 History SDOH Alcohol Frequency 1 [facility] Start: 03-07-2020 History SDOH Alcohol Std Drinks 98 [facility] Start: 03-22-2021 History SDOH Social Connections Phone 3 [facility] Start: 03-22-2021 History SDOH Social Connections Get Together 2 [facility] Start: 03-22-2021 History SDOH Physical Activity MPS 4 [facility] Start: 03-22-2021 History SDOH Financial 5 [facility] Start: 03-07-2020 Education 17 [facility] Start: 1945 Sex Assigned At Male [facility] Start: 09-15-2021 End: 11-09-2021 Exposure to SARS-CoV-2 (event) Not sure [facility] Work Phone: Start: 10-24-2021 End: 11-03-2021 Exposure to SARS-CoV-2 (event) Unable to assess [facility] Work Phone: Start: 06-05-2013 End: 06-09-2022 Tobacco use and exposure Smokeless tobacco non-user [facility] Start: 06-09-2022 End: 02-16-2023 History of Social function [facility] Work Phone: Start: 06-09-2022 End: 02-16-2023 Tobacco use panel [facility] Work Phone: Adult Depression Screening Assessment 0 [facility] Work Phone: Start: 03-15-2020 Gender identity Identifies as male gender (finding) [facility] Start: 03-15-2020 Sexual orientation Heterosexual (finding) [facility] Do you belong to any clubs or organizations such as sabianism groups, unions, [employer] or athletic groups, or school groups? No [facility] Are you now , , , , never or living with a partner? [facility] How often to you hav e a drink containing alcohol? Never [facility] Do you feel stress - tense, restless, nervous, or anxious, or unable to sleep at night because your mind is troubled all the time - these days [OSQ] To some extent [facility] (I/We) worried gato er (my/our) food would run out before (I/we) got money to buy more. Never true [facility] Medical Equipment Procedure Code Equipment Code Equipment Origin al Text Equipment Identifier Dates Plug Perfix Bard Small Taper Polypropylene 1.35x1in Surgical Monofilament - [id number] Start: 06-21-2018 Clinical Notes 04-25-2013 to 04-23-2023 Telephone Encounter - Kellen Reyes LPN - 04/23/2023 10:46 AM ESTTelephone Encounter - Kierra Munoz - 02/22/2023 11:45 AM EDTTelephone Encounter - Margaret Condon, Pradeep - 02/14/2023 8:02 AM EDT Note Date & Type Note Facility 04-23-2023 Miscellaneous Notes Last appointment: 02/16/23 Next appointment: 08/17/23 Pharmacy verified in Epic. Refill(s) requested: Requested Prescriptions Pending Prescriptions Disp Refills tamsulosin (FLOMAX) 0.4 mg [Pharmacy Med Name: Tamsulosin HCl 0.4 MG Oral Capsule] 90 capsule 0 Sig: take 1 capsule by mouth at bedtime as needed Order(s) pended. Please advise. Kellen Reyes LPN, HANDWRITING EXPERT documented in this encounter [facility] 02-22-2023 Miscellaneous Notes lvm to pt , patient is due for a follow up documented in this encounter [facility] 02-16-2023 Note HNO ID: [id number] Author: Mami Rodriguez MD Service: ? Author Type: Physician Type: Progress Notes Filed: 02/17/2023 7:26 AM Note Text: CHIEF COMPLAINT Patient presents with: 6 Month Exam HISTORY OF PRESENT ILLNESS Mary Menjivar is a 77 year old male who presents here today for 6 month follow up. I last saw this patient on 06/09/2022. - Feels that he is generally doing well BPH/Overactive Bladder - Well managed - Currently managed on myrbetriq 50 mg tablet once daily, finasteride 5 mg tablet once daily and flomax 0.4 mg capsule at bedtime as needed - Improvement of symptoms; urgency and nocturia Alzheimer's - Currently managed on memantine 10 mg tablet - Adherent to regimen - Tolerating well - Admits to some brain fog Hypertension - Currently managed on Losartan 50 mg tablet once daily - Adherent to regimen - Denies side effects - Denies chest pain, shortness of breath or lightheadedness - Has received Covid-19 vaccine last week via pharmacy at [facility] Maintenance Due for Advanced Directive Discussion Labs reviewed. Past medical history, appointments, medications, allergies reviewed. REVIEW OF SYSTEMS General: Feels well, no weight changes, fevers or chills. HEENT: No sinus congestion, earache, sore throat. Cardiac: No chest pain, palpitations Resp: No cough, wheeze, shortness of breath GI: No reflux symptoms, food intolerance, bowel changes. : No urinary frequency, dysuria. MS: No pain or joint complaints. PAST MEDICAL HISTORY PAST MEDICAL HISTORY Diagnosis Date CAD (coronary artery disease) 04/25/2013 History: not know prior. Was not on a statin or asa. Assessment: Pt now admitted with NSTEMI. Plan: - ASA, statin started - lipid panel - [facility] Essential hypertension 12/30/2016 Fracture nose, collar bone, fingers, toes from previous sports injuries. Hayfever Hernia, inguinal Hyperlipidemia 05/04 NSTEMI (non-ST elevated myocardial infarction) (HCC) 04/25/2013 Peripheral vascular disease (HCC) Personal history of unspecified urinary disorder PHYSICAL EXAMINATION BP 126/75 Pulse 67 Ht 177.8 cm (5' 10 ) Wt 78.9 kg (174 lb) SpO2 97% BMI 24.97 kg/m? General: Alert, well developed, well nourished, no distress, pleasant and cooperative. Heart: Regular rate and rhythm. Normal S1 and S2. No murmurs, rubs, or gallops. Lungs: Clear to auscultation bilaterally. No respiratory distress. No wheezes, rales, or rhonchi. Abdomen: Soft, non-tender, no distention. Extremities: Feet/ankles without edema, posterior tibial pulses full and symmetrical. Data Reviewed Component Latest Ref Rng AND Units 12/14/2022 Protein, Total 6.3 - 8.0 g/dL 6.4 Albumin 3.9 - 4.9 g/dL 4.1 Calcium 8.5 - 10.2 mg/dL 9.1 Bilirubin, Total 0.2 - 1.3 mg/dL 0.4 Alkaline Phosphatase 38 - 113 U/L 65 AST 14 - 40 U/L 29 ALT 10 - 54 U/L 19 Glucose 74 - 99 mg/dL 93 BUN 9 - 24 mg/dL 15 Creatinine 0.73 - 1.22 mg/dL 0.99 Sodium 136 - 144 mmol/L 143 Potassium 3.7 - 5.1 mmol/L 4.4 Chloride 97 - 105 mmol/L 107 (H) CO2 22 - 30 mmol/L 28 Anion Gap 9 - 18 mmol/L 8 (L) eGFR >=60 mL/min/1.73mA? 78 WBC 3.70 - 11.00 k/uL 4.76 RBC 4.20 - 6.00 m/uL 3.87 (L) Hemoglobin 13.0 - 17.0 g/dL 12.8 (L) Hematocrit 39.0 - 51.0 % 37.5 (L) MCV 80.0 - 100.0 fL 96.9 MCH 26.0 - 34.0 pg 33.1 MCHC 30.5 - 36.0 g/dL 34.1 RDW-CV 11.5 - 15.0 % 15.1 (H) Platelet Count 150 - 400 k/uL 167 MPV 9.0 - 12.7 fL 10.0 Absolute nRBC <0.01 k/uL <0.01 Cholesterol, Total <200 mg/dL 127 Triglyceride <150 mg/dL 68 HDL Cholesterol >39 mg/dL 50 Non HDL Cholesterol <130 mg/dL 77 Fasting Time hrs 15 VLDL Cholesterol <30 mg/dL 14 TC:HDL Ratio <5.10 2.54 LDL Cholesterol <100 mg/dL 63 LDL:HDL Ratio <2.54 1.26 Assessment/Plan (I10) Essential hypertension (primary encounter diagnosis) Comment: Well controlled Plan: Continue current regimen (I25.10) Coronary artery disease involving lovelock coronary artery of lovelock heart without angina pectoris Comment: asymptomatic. Bp well controlled. Plan: Continue current regimen BPH: he's not necessarily keen to follow up w/ urology at this time, content to maintain current RX through PCP (G30.1, F02.B0) Moderate late onset Alzheimer's dementia without behavioral disturbance, psychotic disturbance, mood disturbance, or anxiety (HCC) Comment: gradual decline with well maintained functionality at home. Plan: maintain Rx Namenda. Requested Prescriptions No prescriptions requested or ordered in this encounter RTO: 6 months Scribe Attestation: By signing my name below, I, Juan Carlos Issa, attest that this documentation has been prepared under the direction and in the presence of Deven Rodriguez M.D. Electronically Signed: Issa Massey. February 16, 2023 2:17 PM Provider Attestation: I, Mami Kontak, MD, personally performed the services described in this documentation. All medical record entries made by the scri (more content not included)... [facility] 02-14-2023 Miscellaneous Notes Pharmacy called requesting the following refill. Requested Prescriptions Pending Prescriptions Disp Refills MYRBETRIQ 50 mg Tb24 [Pharmacy Med Name: Myrbetriq 50 MG Oral Tablet Extended Release 24 Hour] 90 tablet 3 Sig: Take 1 tablet by mouth once daily Patient last appointment: 11/22/2022 Patient Phone numbers: [phone] (home) Request is for script(s) to be escript to pharmacy. Pradeep Robles Ma documented in this encounter [facility] 01-25-2023 Miscellaneous Notes Pharmacy verified in Epic Patient has been identified by name and date of : Yes Patient aware RX will be sent to pharmacy. No need to notify patient. Pharmacy phones for refill(s): Requested Prescriptions Pending Prescriptions Disp Refills losartan (COZAAR) 50 mg tablet [Pharmacy Med Name: Losartan Potassium 50 MG Oral Tablet] 90 tablet 0 Sig: Take 1 tablet by mouth once daily Date of last office visit : 06/09/2022 Date of next office visit : 02/16/2023 Last 2 Encounter Wt Readings: Date: Wt: 06/09/2022 78.5 kg (173 lb) 09/25/2021 80.5 kg (177 lb 6.4 oz) Blood Pressure: BUN (mg/dL) Date Value 12/14/2022 15 03/24/2021 18 Creatinine (mg/dL) Date Value 12/14/2022 0.99 03/24/2021 1.13 Sodium (mmol/L) Date Value 12/14/2022 143 03/24/2021 139 Potassium (mmol/L) Date Value 12/14/2022 4.4 03/24/2021 4.7 Last 1 Encounter BP Readings: Date: BP: 06/09/2022 127/75 Please advise. Elinor Flores LPN documented in this encounter [facility] 01-17-2023 Miscellaneous Notes Pharmacy verified in [facility] Patient has been identified by name and date of : Yes Patient aware RX will be sent to pharmacy. No need to notify patient. Pharmacy phones for refill(s): Requested Prescriptions Pending Prescriptions Disp Refills tamsulosin (FLOMAX) 0.4 mg [Pharmacy Med Name: Tamsulosin HCl 0.4 MG Oral Capsule] 90 capsule 0 Sig: TAKE 1 CAPSULE BY MOUTH AT BEDTIME NEEDED Date of last office visit : 06/09/2022 Date of next office visit : 02/16/2023 Last 2 Encounter Wt Readings: Date: Wt: 06/09/2022 78.5 kg (173 lb) 09/25/2021 80.5 kg (177 lb 6.4 oz) Not applicable Please advise. Elinor Flores LPN documented in this encounter [facility] 12-06-2022 Miscellaneous Notes Received f/u visit summary status post stent from [facility]. Placed in provider's inbox for review. Route to [place] love. documented in this encounter [facility] 11-24-2022 Miscellaneous Notes Patient called requesting the following refill. Requested Prescriptions Pending Prescriptions Disp Refills MYRBETRIQ 50 mg Tb24 [Pharmacy Med Name: Myrbetriq 50 MG Oral Tablet Extended Release 24 Hour] 90 tablet 0 Sig: Take 1 tablet by mouth once daily Patient last appointment: 08/21/2022 Patient Phone numbers: [phone] (home) Request is for script(s) to be escript to pharmacy. Augusto Patton MA documented in this encounter [facility] 10-28-2022 Miscellaneous Notes Patient has been identified by name and date of : Yes Requested Prescriptions Pending Prescriptions Disp Refills tamsulosin (FLOMAX) 0.4 mg [Pharmacy Med Name: Tamsulosin HCl 0.4 MG Oral Capsule] 90 capsule 0 Sig: TAKE 1 CAPSULE BY MOUTH AT BEDTIME NEEDED RX INSTRUCTIONS: Patient aware RX will be sent to pharmacy. No need to notify patient. Penny Carnes Pss documented in this encounter [facility] 10-19-2022 Note HNO ID: [id number] Author: Elinor Flores LPN Service: ? Author Type: LICENSED NURSE Type: Progress Notes Filed: 10/19/2022 10:29 AM Note Text: Patient seen for Covid booster. Administered in right deltoid. Patient tolerated well. [facility] 10-19-2022 History of Present illness Narrative Patient seen for Covid booster. Administered in right deltoid. Patient tolerated well. documented in this encounter [facility] 09-06-2022 Miscellaneous Notes The following approved medication requests have been transmitted electronically. Requested Prescriptions Signed Prescriptions Disp Refills memantine (NAMENDA) 10 mg tablet 180 tablet 1 Sig: Take 1 tablet by mouth twice daily. Authorizing Provider: BELEM RG Ordering User: ROSETTE PENA APRN.SIGNALING DESIGN ENGINEER 09/06/2022 Source : call from pharmacy requesting refill. Delivery : e-script Pending Prescriptions: Disp Refills memantine (NAMENDA) 10 mg tablet 180 ta*3 Sig: Take 1 tablet by mouth twice daily. DX : NA Patient last seen 12/10/2021 Next Appointment : NYA Vizcarra documented in this encounter [facility] 03-20-2023 Miscellaneous Notes The following approved medication requests have been transmitted electronically. Requested Prescriptions Signed Prescriptions Disp Refills finasteride (PROSCAR) 5 mg tablet 90 tablet 3 Sig: TAKE 1 TABLET BY MOUTH ONCE DAILY TO SHRINK PROSTATE Authorizing Provider: MAMI RODRIGUEZ MD Pharmacy verified in [facility] Patient has been identified by name and date of : Yes Patient aware RX will be sent to pharmacy. No need to notify patient. Pharmacy phones for refill(s): Requested Prescriptions Pending Prescriptions Disp Refills finasteride (PROSCAR) 5 mg tablet [Pharmacy Med Name: Finasteride 5 MG Oral Tablet] 90 tablet 0 Sig: TAKE 1 TABLET BY MOUTH ONCE DAILY TO SHRINK PROSTATE Date of last office visit : 06/09/2022 Date of next office visit : Visit date not found Last 2 Encounter Wt Readings: Date: Wt: 06/09/2022 78.5 kg (173 lb) 09/25/2021 80.5 kg (177 lb 6.4 oz) Not applicable Please advise. Elinor Flores LPN documented in this encounter [facility] 08-02-2022 Miscellaneous Notes The following approved medication requests have been transmitted electronically. Requested Prescriptions Signed Prescriptions Disp Refills losartan (COZAAR) 50 mg tablet 90 tablet 0 Sig: Take 1 tablet by mouth once daily Authorizing Provider: MAMI RODRIGUEZ MD Pharmacy verified in [facility]. Patient has been identified by name and date of : Yes Patient aware RX will be sent to pharmacy. No need to notify patient. Patient phones for refill(s): Requested Prescriptions Pending Prescriptions Disp Refills losartan (COZAAR) 50 mg tablet [Pharmacy Med Name: Losartan Potassium 50 MG Oral Tablet] 90 tablet 0 Sig: Take 1 tablet by mouth once daily Date of last office visit : 06/09/2022 Date of next office visit : Visit date not found Last 2 Encounter Wt Readings: Date: Wt: 06/09/2022 78.5 kg (173 lb) 09/25/2021 80.5 kg (177 lb 6.4 oz) Blood Pressure: BUN (mg/dL) Date Value 03/24/2021 18 Creatinine (mg/dL) Date Value 03/24/2021 1.13 Sodium (mmol/L) Date Value 03/24/2021 139 Potassium (mmol/L) Date Value 03/24/2021 4.7 Last 1 Encounter BP Readings: Date: BP: 06/09/2022 127/75 Please advise. Parisa Bedoya MA documented in this encounter [facility] 07-22-2022 Miscellaneous Notes 1st attempt to reach to reschedule 02/21/[address] Diana Anna message sent. Trinidad Peters documented in this encounter [facility] 06-21-2022 Miscellaneous Notes Message left for Mary Menjivar To return call to [phone] to discuss participation in research study. documented in this encounter [facility] 06-09-2022 Note HNO ID: [id number] Author: Mami Rodriguez MD Service: ? Author Type: Physician Type: Progress Notes Filed: 06/09/2022 5:44 PM Note Text: CHIEF COMPLAINT Patient presents with: Follow Up HISTORY OF PRESENT ILLNESS Mary Menjivar is a 76 year old male who presents here today for follow up management of multiple medical issues. I last saw this patient on 03/24/2021. COVID Patient had COVID near the new year. He had the Paxlovid treatment Alzheimer's Patient has a family history of the disease. He says that he is doing well. Patient has been watching his diet. BPH adherent to current regimen without side effects from medication. No current symptoms. He is currently following a urologist. Health Maintenance Due for COVID-19 booster Due for influenza Due for LDL cholesterol Due for depression screening Labs reviewed. Past medical history, appointments, medications, allergies reviewed. REVIEW OF SYSTEMS Pertinent positives/ negatives: General: Feels well, no fever, no chills. HEENT: No sinus congestion, earache, sore throat. Cardiac: No chest pain, palpitations Resp: No cough, wheeze, shortness of breath GI: No reflux symptoms, food intolerance, bowel changes. : No urinary frequency, dysuria. MS: No pain or joint complaints. PAST MEDICAL HISTORY PAST MEDICAL HISTORY Diagnosis Date CAD (coronary artery disease) 04/25/2013 History: not know prior. Was not on a statin or asa. Assessment: Pt now admitted with NSTEMI. Plan: - ASA, statin started - lipid panel - [facility] Essential hypertension 12/30/2016 Fracture nose, collar bone, fingers, toes from previous sports injuries. Hayfever Hernia, inguinal Hyperlipidemia 05/04 NSTEMI (non-ST elevated myocardial infarction) (HCC) 04/25/2013 Peripheral vascular disease (HCC) Personal history of unspecified urinary disorder PHYSICAL EXAMINATION BP 127/75 Pulse 69 Ht 177.8 cm (5' 10 ) Wt 78.5 kg (173 lb) SpO2 98% BMI 24.82 kg/m? General: Alert, well developed, well nourished, no distress, pleasant and cooperative. Heart: Regular rate and rhythm. Normal S1 and S2. No murmurs, rubs, or gallops. Lungs: Clear to auscultation bilaterally. No respiratory distress. No wheezes, rales, or rhonchi. Abdomen: Soft, non-tender, no distention. Extremities: Feet/ankles without edema, posterior tibial pulses full and symmetrical. Data Reviewed Latest Reference Range AND Units 10/27/21 11:12 11/09/21 10:33 11/09/21 11:15 11/09/21 11:16 UltraSens C-Reactive Protein <3.1 mg/L 0.4 Interpretation SEE NOTE CSF Albumin 10.0 - 30.0 mg/dL 23.1 IgG, Serum 700-1,600 mg/dL 1,044 Albumin, Serum 3,900-4,900 mg/dL 4,000 Immunoglobulin G, CSF 1.0 - 3.0 mg/dL 2.9 IgG/Albumin Ratio 0.06 - 0.17 0.13 SIGNALING DESIGN ENGINEER IgG Synthesis 0.0 - 3.0 mg/day 0.0 IgG Index 0.00 - 0.61 0.48 Comment SEE NOTE WBC 3.70 - 11.00 k/uL 4.86 5.05 RBC 4.20 - 6.00 m/uL 3.80 (L) 3.98 (L) Hemoglobin 13.0 - 17.0 g/dL 12.4 (L) 12.7 (L) Hematocrit 39.0 - 51.0 % 38.6 (L) 39.5 Platelet Count 150 - 400 k/uL 162 141 (L) MCV 80.0 - 100.0 fL 101.6 (H) 99.2 MCH 26.0 - 34.0 pg 32.6 31.9 MCHC 30.5 - 36.0 g/dL 32.1 32.2 MPV 9.0 - 12.7 fL 10.0 9.3 RDW-CV 11.5 - 15.0 % 14.8 14.6 DTYPE Auto Auto Neut% % 68.0 73.4 Abs Neut (ANC) 1.45 - 7.50 k/uL 3.30 3.71 Lymph% % 19.1 14.1 Abs Lymph 1.00 - 4.00 k/uL 0.93 (L) 0.71 (L) [place]% % 8.6 7.1 Abs [place] <0.87 k/uL 0.42 0.36 Eosin% % 3.5 4.2 Abs Eosin <0.46 k/uL 0.17 0.21 Baso% % 0.6 0.8 Abs Baso <0.11 k/uL 0.03 0.04 Immature Gran % % 0.2 0.4 IMMATURE GRANS (ABS) <0.10 k/uL <0.03 <0.03 NRBC /100 WBC 0.0 0.0 Absolute nRBC <0.01 k/uL <0.01 <0.01 WSR 0 - 15 mm/hr 2 CSF Tube Nbr Tube 4 Color, CSF Colorless Colorless Supernatant Color, CSF Colorless Not Indicated Clarity, CSF Clear Clear Supernatant Clarity, CSF Clear Not Indicated VDRL, CSF Nonreactive Nonreactive RBC, CSF 0 - 5 cells/uL 161 (H) Total Nucleated Cells, CSF 0 - 5 cells/uL 0 DIF TTL, CSF cells counted 100 Neut%, CSF 0 - 3 % 6 (H) Lymph%, CSF 50 - 90 % 84 [place]%, CSF 10 - 50 % 10 Protein, CSF 15 - 45 mg/dL 40 Glucose, CSF 40 - 70 mg/dL 54 Method: SEE NOTE References SEE NOTE Technical Results SEE NOTE (L): Data is abnormally low (H): Data is abnormally high Assessment/Plan (I10) Essential hypertension (primary encounter diagnosis) Comment: well controlled Plan: COMP METABOLIC PANEL, LIPID PANEL BASIC (N40.1, N13.8) BPH with obstruction/lower urinary tract symptoms Comment: well controlled Plan: continue to follow urology (I73.9) PVD (peripheral vascular disease) (HCC) Comment: well controlled Plan: continue on current regimen (G30.1, F02.B0) Moderate late onset Alzheimer's dementia without behavioral disturbance, psychotic disturbance, mood disturbance, or anxiety (HCC) Comment: status quo Plan: continue to monitor (E78.00) Hypercholesterolemia Comment: due for labs Plan: LIPID PANEL BASIC (more content not included)... [facility] 06-09-2022 History of Present illness Narrative CHIEF COMPLAINT Patient presents with: Follow Up HISTORY OF PRESENT ILLNESS Mary Menjivar is a 76 year old male who presents here today for follow up management of multiple medical issues. I last saw this patient on 03/24/2021. COVID Patient had COVID near the new year. He had the Paxlovid treatment Alzheimer's Patient has a family history of the disease. He says that he is doing well. Patient has been watching his diet. BPH adherent to current regimen without side effects from medication. No current symptoms. He is currently following a urologist. Health Maintenance Due for COVID-19 booster Due for influenza Due for LDL cholesterol Due for depression screening Labs reviewed. Past medical history, appointments, medications, allergies reviewed. REVIEW OF SYSTEMS Pertinent positives/ negatives: General: Feels well, no fever, no chills. HEENT: No sinus congestion, earache, sore throat. Cardiac: No chest pain, palpitations Resp: No cough, wheeze, shortness of breath GI: No reflux symptoms, food intolerance, bowel changes. : No urinary frequency, dysuria. MS: No pain or joint complaints. PAST MEDICAL HISTORY PAST MEDICAL HISTORY Diagnosis Date CAD (coronary artery disease) 04/25/2013 History: not know prior. Was not on a statin or asa. Assessment: Pt now admitted with NSTEMI. Plan: - ASA, statin started - lipid panel - [facility] Essential hypertension 12/30/2016 Fracture nose, collar bone, fingers, toes from previous sports injuries. Hayfever Hernia, inguinal Hyperlipidemia 05/04 NSTEMI (non-ST elevated myocardial infarction) (HCC) 04/25/2013 Peripheral vascular disease (HCC) Personal history of unspecified urinary disorder PHYSICAL EXAMINATION BP 127/75 Pulse 69 Ht 177.8 cm (5' 10 ) Wt 78.5 kg (173 lb) SpO2 98% BMI 24.82 kg/m General: Alert, well developed, well nourished, no distress, pleasant and cooperative. Heart: Regular rate and rhythm. Normal S1 and S2. No murmurs, rubs, or gallops. Lungs: Clear to auscultation bilaterally. No respiratory distress. No wheezes, rales, or rhonchi. Abdomen: Soft, non-tender, no distention. Extremities: Feet/ankles without edema, posterior tibial pulses full and symmetrical. Data Reviewed Latest Reference Range & Units 10/27/21 11:12 11/09/21 10:33 11/09/21 11:15 11/09/21 11:16 UltraSens C-Reactive Protein <3.1 mg/L 0.4 Interpretation SEE NOTE CSF Albumin 10.0 - 30.0 mg/dL 23.1 IgG, Serum 700-1,600 mg/dL 1,044 Albumin, Serum 3,900-4,900 mg/dL 4,000 Immunoglobulin G, CSF 1.0 - 3.0 mg/dL 2.9 IgG/Albumin Ratio 0.06 - 0.17 0.13 SIGNALING DESIGN ENGINEER IgG Synthesis 0.0 - 3.0 mg/day 0.0 IgG Index 0.00 - 0.61 0.48 Comment SEE NOTE WBC 3.70 - 11.00 k/uL 4.86 5.05 RBC 4.20 - 6.00 m/uL 3.80 (L) 3.98 (L) Hemoglobin 13.0 - 17.0 g/dL 12.4 (L) 12.7 (L) Hematocrit 39.0 - 51.0 % 38.6 (L) 39.5 Platelet Count 150 - 400 k/uL 162 141 (L) MCV 80.0 - 100.0 fL 101.6 (H) 99.2 MCH 26.0 - 34.0 pg 32.6 31.9 MCHC 30.5 - 36.0 g/dL 32.1 32.2 MPV 9.0 - 12.7 fL 10.0 9.3 RDW-CV 11.5 - 15.0 % 14.8 14.6 DTYPE Auto Auto Neut% % 68.0 73.4 Abs Neut (ANC) 1.45 - 7.50 k/uL 3.30 3.71 Lymph% % 19.1 14.1 Abs Lymph 1.00 - 4.00 k/uL 0.93 (L) 0.71 (L) [place]% % 8.6 7.1 Abs [place] <0.87 k/uL 0.42 0.36 Eosin% % 3.5 4.2 Abs Eosin <0.46 k/uL 0.17 0.21 Baso% % 0.6 0.8 Abs Baso <0.11 k/uL 0.03 0.04 Immature Gran % % 0.2 0.4 IMMATURE GRANS (ABS) <0.10 k/uL <0.03 <0.03 NRBC /100 WBC 0.0 0.0 Absolute nRBC <0.01 k/uL <0.01 <0.01 WSR 0 - 15 mm/hr 2 CSF Tube Nbr Tube 4 Color, CSF Colorless Colorless Supernatant Color, CSF Colorless Not Indicated Clarity, CSF Clear Clear Supernatant Clarity, CSF Clear Not Indicated VDRL, CSF Nonreactive Nonreactive RBC, CSF 0 - 5 cells/uL 161 (H) Total Nucleated Cells, CSF 0 - 5 cells/uL 0 DIF TTL, CSF cells counted 100 Neut%, CSF 0 - 3 % 6 (H) Lymph%, CSF 50 - 90 % 84 [place]%, CSF 10 - 50 % 10 Protein, CSF 15 - 45 mg/dL 40 Glucose, CSF 40 - 70 mg/dL 54 Method: SEE NOTE References SEE NOTE Technical Results SEE NOTE (L): Data is abnormally low (H): Data is abnormally high Assessment/Plan (I10) Essential hypertension (primary encounter diagnosis) Comment: well controlled Plan: COMP METABOLIC PANEL, LIPID PANEL BASIC (N40.1, N13.8) BPH with obstruction/lower urinary tract symptoms Comment: well controlled Plan: continue to follow urology (I73.9) PVD (peripheral vascular disease) (HCC) Comment: well controlled Plan: continue on current regimen (G30.1, F02.B0) Moderate late onset Alzheimer's dementia without behavioral disturbance, psychotic disturbance, mood disturbance, or anxiety (HCC) Comment: status quo Plan: continue to monitor (E78.00) Hypercholesterolemia Comment: due for labs Plan: LIPID PANEL BASIC Requested Prescriptions No prescriptions requested or ordered in this encounter RTO: 6 months Scribe Attestation: By signing my name below, I, Anne Marie Phelps, attest that this documentation has been prepared under the direction and in the presence of Deven Rodriguez M.D. Electronically Signed: Issa Farrell. June 09, 2022 8:31 AM Provider Attestation: I, Mami Rodriguez MD, personally performed the services described in this documentation. All medical record entries made by the scribe were at my direction and in my presence. I have reviewed the chart and discharge instructions (if applicable) and agree that the record reflects my personal performance and is accurate and complete. Electronically Signed: Mami Rodriguez MD June 09, 2022 5:44 PM documented in this encounter [facility] 05-18-2022 Note HNO ID: [id number] Author: Therese Gardner Service: ? Author Type: ? Type: Progress Notes Filed: 05/19/2022 8:53 AM Note Text: Looked at patient's appt desk. Patient has been scheduled for follow up with PCP on 05/26/2022. Thank you. Therese Gardner [facility] 05-18-2022 History of Present illness Narrative Looked at patient's appt desk. Patient has been scheduled for follow up with PCP on 05/26/2022. Thank you. Therese Gardner 1st attempt. Lvm trying to schedule yearly visit with PCP. Thank you. Therese Gardner Patient is overdue for a yearly visit with PCP, please assist with scheduling in a 40 minute slot. Monica Chatterjee APRN.KYLE documented in this encounter [facility] 05-12-2022 Miscellaneous Notes The following approved medication requests have been transmitted electronically. Requested Prescriptions Signed Prescriptions Disp Refills finasteride (PROSCAR) 5 mg tablet 90 tablet 0 Sig: TAKE 1 TABLET BY MOUTH ONCE DAILY TO SHRINK PROSTATE Authorizing Provider: MAMI RODRIGUEZ MD Pharmacy verified in [facility] Patient has been identified by name and date of : Yes Patient aware RX will be sent to pharmacy. No need to notify patient. Patient phones for refill(s): Requested Prescriptions Pending Prescriptions Disp Refills finasteride (PROSCAR) 5 mg tablet [Pharmacy Med Name: Finasteride 5 MG Oral Tablet] 90 tablet 0 Sig: TAKE 1 TABLET BY MOUTH ONCE DAILY TO SHRINK PROSTATE Date of last office visit : 03/24/2021 Date of next office visit : Visit date not found Last 2 Encounter Wt Readings: Date: Wt: 09/25/2021 80.5 kg (177 lb 6.4 oz) 07/08/2021 81.2 kg (179 lb) Not applicable Please advise. Elinor Flores LPN documented in this encounter [facility] 05-11-2022 Note HNO ID: [id number] Author: Therese Gardner Service: ? Author Type: ? Type: Progress Notes Filed: 05/19/2022 8:53 AM Note Text: 1st attempt. Lvm trying to schedule yearly visit with PCP. Thank you. Therese Gardner [facility] 05-05-2022 Note HNO ID: [id number] Author: Monica Chatterjee APRN.CNP Service: ? Author Type: Nurse Practitioner Type: Progress Notes Filed: 05/19/2022 8:53 AM Note Text: Patient is overdue for a yearly visit with PCP, please assist with scheduling in a 40 minute slot. Monica Chatterjee APRN.CNP [facility] 05-05-2022 Note Patient Outreach (FP MARGARET) MARY MENJIVAR ([id number]) 1945 M Date Time Provider Department 05/05/22 MONICA CHATTERJEE During your visit today, we recorded the following information about you: Monica Chatterjee APRN.CNP 05/19/2022 8:53 AM Signed Patient is overdue for a yearly visit with PCP, please assist with scheduling in a 40 minute slot. JOAN Scanlon 05/19/2022 8:53 AM Signed 1st attempt. Lvm trying to schedule yearly visit with PCP. Thank you. Therese Gardner 05/19/2022 8:53 AM Signed Looked at patient's appt desk. Patient has been scheduled for follow up with PCP on 05/26/2022. Thank you. Therese Gardner Allergies As of Date: 05/05/2022 Noted Allergy Reaction BRILINTA (TICAGRELOR) 06/05/2013 9 - Itching DOXYCYCLINE 12/26/2009 Environmental allergies [Other] 11/30/2010 14 - Other: See Comments Comments: Molds, Trees, Grasses, and Weeds Date Reviewed: 11/09/2021 Reviewed by: Belem Rg APRN.CNP - Fully Assessed Prescriptions as of 05/19/2022 - finasteride (PROSCAR) 5 mg tablet TAKE 1 TABLET BY MOUTH ONCE DAILY TO SHRINK PROSTATE - tamsulosin (FLOMAX) 0.4 mg TAKE 1 CAPSULE BY MOUTH AT BEDTIME NEEDED - losartan (COZAAR) 50 mg tablet Take 1 tablet by mouth once daily - MYRBETRIQ 50 mg Tb24 Take 1 tablet by mouth once daily - memantine (NAMENDA) 10 mg tablet Take 1 tablet by mouth twice daily. - predniSONE (DELTASONE) 10 mg tablet Take 4 tabs daily for 3 days, then 2 tabs daily for 3 days, then 1 tab daily for 3 days with food. - nitroglycerin sublingual (NITROSTAT) 0.4 mg SL tablet Dissolve 1 tablet under the tongue as needed. for chest pain,every 5 min x3 - atorvastatin (LIPITOR) 40 mg tablet Take 0.5 tablets by mouth daily at bedtime. - clopidogrel (PLAVIX) 75 mg tablet Take 1 tablet by mouth once daily. - fluticasone (FLONASE) 50 mcg/actuation nasal spray Use 2 Sprays in each nostril daily at bedtime. - aspirin 81 mg chewable tablet Take 1 tablet by mouth once daily. - Lxgrccsgbim-Hmajhdnjx-Pol C-Mn (GLUCOSAMINE CHONDROITIN MAXSTR) 500-400 mg cap Take 1 capsule by mouth once daily. Problem List As Of Date 05/05/2022 Noted Resolved Inguinal Hernia Unilateral 01/19/2010 Allergic rhinitis, cause unspecified [J30.9] 11/30/2010 Erectile dysfunction [N52.9] 04/07/2012 SUMMARY [V999.95] 04/25/2013 06/15/2018 NSTEMI (non-ST elevated myocardial infarction) *04/25/2013 06/15/2018 PVD (peripheral vascular disease) (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] 11/23/2013 Solar Lentigines [L81.4] 11/23/2013 Other seborrheic keratosis [L82.1] 11/23/2013 Actinic skin damage [L57.8] 11/23/2013 Xerosis cutis [L85.3] 11/23/2013 Postinflammatory skin changes [R23.8] 12/23/2013 S/P right coronary artery (RCA) stent placement*08/19/2014 Presence of stent in LAD coronary artery [Z95.5]08/19/2014 Essential hypertension [I10] 12/30/2016 Right inguinal hernia [K40.90] 05/18/2018 Mild cognitive impairment [G31.84] 03/20/2021 Encounter Status:Closed by MONICA CHATTERJEE on 05/19/22 [facility] 04-26-2022 Miscellaneous Notes Pharmacy verified in [facility] Patient has been identified by name and date of : Yes Patient aware RX will be sent to pharmacy. No need to notify patient. Pharmacy phones for refill(s): Requested Prescriptions Pending Prescriptions Disp Refills losartan (COZAAR) 50 mg tablet [Pharmacy Med Name: Losartan Potassium 50 MG Oral Tablet] 90 tablet 0 Sig: Take 1 tablet by mouth once daily Date of last office visit : 03/24/2021 Date of next office visit : Visit date not found Last 2 Encounter Wt Readings: Date: Wt: 09/25/2021 80.5 kg (177 lb 6.4 oz) 07/08/2021 81.2 kg (179 lb) Blood Pressure: BUN (mg/dL) Date Value 03/24/2021 18 Creatinine (mg/dL) Date Value 03/24/2021 1.13 Sodium (mmol/L) Date Value 03/24/2021 139 Potassium (mmol/L) Date Value 03/24/2021 4.7 Last 1 Encounter BP Readings: Date: BP: 11/09/2021 169/89 Please advise. Elinor Flores LPN documented in this encounter [facility] 04-26-2022 Miscellaneous Notes Pharmacy verified in [facility] Patient has been identified by name and date of : Yes Patient aware RX will be sent to pharmacy. No need to notify patient. Pharmacy phones for refill(s): Requested Prescriptions Pending Prescriptions Disp Refills tamsulosin (FLOMAX) 0.4 mg [Pharmacy Med Name: Tamsulosin HCl 0.4 MG Oral Capsule] 90 capsule 0 Sig: TAKE 1 CAPSULE BY MOUTH AT BEDTIME NEEDED Date of last office visit : 03/24/2021 Date of next office visit : Last 2 Encounter Wt Readings: Date: Wt: 09/25/2021 80.5 kg (177 lb 6.4 oz) 07/08/2021 81.2 kg (179 lb) Not applicable Please advise. Elinor Flores LPN documented in this encounter [facility] 02-09-2022 Miscellaneous Notes Received f/u visit note from [facility]. Placed in provider's inbox for review. Route to [place] love. documented in this encounter [facility] 01-27-2022 Miscellaneous Notes Last appointment: 10-12-21 Next appointment: na Pharmacy verified in [employer]. Refill(s) requested: Requested Prescriptions Pending Prescriptions Disp Refills losartan (COZAAR) 50 mg tablet [Pharmacy Med Name: Losartan Potassium 50 MG Oral Tablet] 90 tablet 0 Sig: Take 1 tablet by mouth once daily Order(s) pended. Please advise. Jayashree Hernandez MA, HANDWRITING EXPERT documented in this encounter [facility] 11-10-2021 Miscellaneous Notes FU after procedure - spoke with pt regarding CS abnormal labs (low platelets); told pt message went out to his PCP; told pt to FU with PCP documented in this encounter [facility] 11-09-2021 History of Present illness Narrative Study Title: [facility] Biobank IRB#: [id number] Utilization Review Rn: Augusto Rubin M.D. Research Coordinator: Morelia Mayorga Research Subject Name: Mary Menjivar All study procedures completed after informed consent on 11/09/2021 Study Procedures completed on: 11/09/2021 _x_ Blood Collection _x_ Lumbar puncture procedure _x_ Cognitive testing (MMSE) _x_ Demographics collected _x_ Health history collected _x_ Family History _x_ Medications _x_ Vitals collected ADVERSE EVENTS: dizziness, elevated BP Comments: unable to collect all blood tubes Study procedures conducted by: Belem Rg, Moreila Mayorga, Nupur Le and Columba Delgado documented in this encounter [facility] 11-09-2021 History of Present illness Narrative Images from the original note were not included. [facility] LUMBAR PUNCTURE NURSE DISCHARGE NOTE The patient has undergone a lumbar puncture procedure and at this time has completed their post procedural rest period of 60 minutes. Date: Time: 1235 Vital Signs BP 169/89, P 63, RR 18, Temp 36.0 C Insertion Site Dressing: clean, dry and intact Ensured that patient and caregiver had a copy of LP discharge instructions and addressed questions/concerns if present: Yes BP after going to bathroom with Morelia was 194/100. Participant complained of slight dizziness while walking in the hallway. Water and snack given. Zion Rg aware of elevated BP. Had participant rest for 20 minutes supine, BP improved to 169/89. Instructed to check BP at home and if it remains elevated to call Mary's PCP for a BP medication adjustment. Encouraged patient to drink a few extra glasses of water to rehydrate and to lie down if experiences a headache. Instructed that he may take tylenol as needed for headache or discomfort. Encouraged to take it easy the next few days with no heavy lifting. Instructed to avoid pools, hot tubs or baths for 3 days. Instructed to leave dressing on back until the morning, and can shower as usual in the morning. Ambulated in hallway with minimal dizziness. Encouraged to drink more water and to take a nap when he gets home. driving patient home. Walked participant to the car with and he had a steady gait. Patient and caregiver deny having any questions. Patient permitted to leave at this time, accompanied by . Jaimie Wagoner RN BSN Research [facility] PROCEDURE FOR DIAGNOSTIC TESTING Mary Menjivar [id number] November 09, 2021, 8:13 AM INFORMED CONSENT The risks, benefits and anticipated outcomes of the procedure, the risks and benefits of the alternatives to the procedure and the roles and tasks of the personnel to be involved were discussed with the patient, who consents to the procedure and agrees to proceed. I verify that I personally obtained Mary Menjivar's consent, Belem Rg APRN.DELIVERY STOCK CLERK UNIVERSAL PROTOCOL / SAFETY CHECKLIST Procedure to be Performed: Lumbar Puncture Sign In: A Moment of CARE was completed. Personnel directly involved with the procedure wore the appropriate PPE (Personal Protective Equipment). No special equipment needed. Patient/Surrogate Stated/Verified: PATIENT VERIFIED(optional for EMERGENT procedures): Patient name, Date of , Relevant allergies and The intended procedure Time Out Communication: Intended patient and procedure match the source documents. Consent documented and matches the intended procedure. Relevant labs, photos, and/or imaging studies have been reviewed. Correct side/site marked and visible. Medications required for procedure verified. Fire risk assessed and interventions discussed. No implant(s) inserted. PLAVIX HAS BEEN STOPPED FOR 7 DAYS. Sign Out: SIGN OUT (optional for EMERGENT procedures): All specimen containers correctly labeled. All instruments, equipment, possible retained foreign bodies accounted for. Post-procedure follow-up management communicated and Plan of Care Visit completed when applicable. Belem Rg APRN.DELIVERY STOCK CLERK Pre-Procedure Labs: Pertinent History: Prior LP or Epidural: NO Allergy to lidocaine: NO Allergy to betadine: NO Taking anticoagulants: YES - PLAVIX stopped for 7 days pre-procedure Back problems or trauma: NO Sign in Communication: Completed Pre-LP vitals: Time: 0915 EST BP: 163/92 Procedure: Performed by: Belem Rg APRN.DELIVERY STOCK CLERK Asst: Morelia Mayorga RA / Julia Le RA Relevant documentation, images, implants or special equipment present: N/A Patient positioned: left lateral decubitus Prepped and draped under aseptic conditions. Procedural site marked, verified by: Belem Rg APRN.DELIVERY STOCK CLERK Site: L4-5 AUDIBLE TIME OUT: 1000 EST, Patient verified by name and . Procedure verified. Local administration of 1% lidocaine 5cc. Interspace entered with Sprotte 22 gauge 9cm spinal needle Opening pressure: not obtained CSF obtained: 30cc for patient testing. Appearance: clear and colorless Spinal needle removed, area cleansed and bandage applied. Patient placed supine. Sign Out Discussion Post-LP instructions given: YES Verbal and written Pt. tolerated procedure well: YES Pt. remained supine for 1 hour. Post-LP vitals: Time: 1235 EST BP: 169/89 Belem Rg APRN.CNP November 09, 2021 Images from the original note were not included. Received OK for patient to stop Plavix 7 days pre-LP documented in this encounter [facility] 11-09-2021 Instructions Belem Rg APRN.CNP - 11/09/2021 9:40 AM EDT Images from the original note were not included. [facility] Neu[facility] [place] GOING HOME INSTRUCTIONS POST LP HEADACHE Prevention 1. Drink plenty of fluids - Water is best. Also include (in addition to water) caffeinated drinks such as coffee or tea. 2. Take it easy- NO heavy lifting or strenuous exercise for the next 48 hours What to do if you develop a Headache: 1. A spinal headache is usually worse in the sitting or standing position and feels better when laying down. This headache, which can be severe, would typically start in the first 24 to 48 hours after the LP and last anywhere from several hours to 7-10 days. 2. It responds best to complete bedrest. 3. Continue to drinking plenty of fluids including water and caffeinated drinks such as coffee or tea 4. You can take mitp-vhp-[id number] Tylenol and/or Ibuprofen as directed INFECTION PREVENTION 1. The procedure was done under sterile field which helps to prevent infection. 2. Do not sit in any water for the next 48 hours. No swimming, hot tubs or bath. You may shower tomorrow. When should I call my provider? 1. You can always call us if you have a question. -If during regular office hours: Tuesday thru Tuesday from 8-5pm, please contact our office line [phone] and then hit [phone] , please ask our medical administrative to page the provider who performed the spinal tap. -For nights or weekends, call or toll free and ask the cooky machine operator the page the Neurology resident on-call. 2. If your headache is unusually severe regardless of bedrest or lasts more than two days 3. If you develop a fever 4. If you notice inflammation, pus formation or clear drainage from the site of the needle puncture You may resume your usual activities after 48 hours. PLEASE RESTART PLAVIX TODAY WHEN YOU ARRIVE HOME, 11/09/21, and then on your normal schedule thereafter. documented in this encounter [facility] 11-03-2021 Miscellaneous Notes Spoke to patient and spouse regarding Biobank. Patient expressed interest and will arrive 45 minutes prior to LP appointment for research protocol. documented in this encounter [facility] 10-21-2021 Miscellaneous Notes RN contacted patient's spouse regarding upcoming LP, RN informed patient to call and schedule LP at [phone]. Also informed to hold plavix 7 days prior to LP procedure per [facility] fax. Also instructed to resume day after procedure. RN also informed her that the CBC order is in [facility] and she can go to any [facility] lab for blood work. Hamida Almonte RN documented in this encounter [facility] 10-21-2021 History of Present illness Narrative As we have received an OK from patient's relationship manager for him to hold Plavix for 7 days pre-LP- orders for LP and associated CSF labs placed, as well as CBC order for an updated PLT level. Will ask assisted living care manager to reach out to the patient's spouse to inform them that we have received this OK letter and that he can now schedule the LP and to make sure he has the CBC drawn at least 1 day before LP. Additionally, He must stop his Plavix 7 days prior to the LP. It can be restarted after procedure, same day. Belem Rg, MSN, OUTSOLE PARAFFINER-C, CNRN documented in this encounter [facility] 2021 History of Present illness Narrative Fax received from Hamida Pastrana RN (noted below) - sent for scanning into chart ummary: Fax received regarding Plavix RN received fax from Dr. Maria office - [facility]- [place], [place] regarding plavix for upcoming LP. It stated that patient may Hold plavix 7 days prior to lumbar puncture for diagnostic procedure.(His last coronary stent was 06/21/2013 or > 1year). He may resume the next day. Copy to be sent to [employer] for scanning. Hamida Almonte RN documented in this encounter [facility] 10-12-2021 Nurse Note Patient ID with two (2) identifiers verified by: Elinor Flores Allergies reviewed and updated: Yes The patient is here for Covid vaccination Patient received in left deltoid. documented in this encounter [facility] 10-12-2021 Miscellaneous Notes RN called patient;s relationship manager Dr. Manuel Maria - [facility] - ph: [phone]) to see if we can get a letter of clearance for patient to stop his Plavix for 7 days pre-LP due to memory changes to assess for Alzheimer's diseaSE. No answer, VM message with request for permission to stop Plavix for 7 days pre-LP and when is it safe to resume Plavix. Fax number and phone number provided. Hamida Almonte RN documented in this encounter [facility] 10-08-2021 Instructions Belem Rg APRN.KYLE - 10/08/2021 11:04 AM EDT 1. We will reach out to Dr. Maria's office to see if we can obtain clearance for you to stop your Plavix for 7 days pre-LP 2. Continue Namenda 10mg twice daily 3. Consider trying a few sessions of Cognitive therapy with any of the therapists below (not an exhaustive list- the schedulers can tell you who else may be nearer to you) -- call [phone] or any of the numbers below to schedule Kathy Swift, ACCOUNT MANAGEMENT SPECIALIST at [facility] call [phone] Margarita Simental, ACCOUNT MANAGEMENT SPECIALIST at [facility] - call [phone] Brandy Avelar, ACCOUNT MANAGEMENT SPECIALIST -- [facility], Desk C22 (appt [phone]) Marita Strickland, ACCOUNT MANAGEMENT SPECIALIST at [facility] ([phone]) Blue Linton) Eloy at [facility] ([phone]) Luz Lacey at [facility] ([phone]) Becca Arriola, ACCOUNT MANAGEMENT SPECIALIST at [facility] ([phone]) Trupti Walton, ACCOUNT MANAGEMENT SPECIALIST at [facility] ([phone] ph; [phone] fax) Quynh Rangel, ACCOUNT MANAGEMENT SPECIALIST -- [facility], ([phone]) Brandy Chapa, ACCOUNT MANAGEMENT SPECIALIST -- [facility] [place] ([phone]) 4. Stay as active and healthy as you can in the meantime Follow up likely for LP and then 4 weeks afterwards to discuss results documented in this encounter [facility] 10-08-2021 History of Present illness Narrative Mary Menjivar [address] [place] [address] October 08, 2021 [facility] VIRTUAL FOLLOW-UP NOTE This visit was conducted using audio + video elements. Accompanied by: spouse Aylin MARY Mary Menjivar is a pleasant 75 year old male seen today for a follow up visit. 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 Patient was last seen on 07/08/21, at which time: -- patient re-established care w/ Dr. Rubin for ongoing management of his MCI w/ likely underlying AD -- tolerating Namenda 10mg once daily; had tried Aricept but did not like it and has stopped it -- slow progression of memory changes-- reporting STML, mild impairment in working/immediate memory -- functionally he had stopped driving, but remained independent of bADLs He was recommended to increase Namenda to 10mg BID, consider CSF biomarkers in future (if Plavix can be stopped) Today, Mary and his spouse return for a routine follow up visit He has not had issues with increasing the dose of Namenda to 10mg BID- he has been tolerating it well. He does feel that he is continuing to decline in terms of his ST memory and processing speed / problem solving. He gets tired a little more quickly and gets tired from the outdoor activity. He is very active and he takes the dog out for walks a lot, mows the yard, does a lot of yard work, goes to the gym several times/week. They do have some family in [facility], and they have gone to visit them at various times. Mary primarily does his own medications in an organized fashion but Aylin does look at it once weekly and makes sure it looks OK. They expressed today that Mary would be willing to undergo LP for analysis of AD biomarkers so that he may potentially be eligible for either a clinical trial or a disease modifying therapy if another one becomes available down the line. He continues on Plavix since his [facility] in 2012 and this is prescribed through Dr. Maria in the [facility] (ph: [phone]) who we will have to obtain clearance from to have Mary stop his Plavix ideally 7 days pre-LP. Other interval history: Falls: negative Sleep: described as normal, feels rested upon waking- he can nap several times throughout the day- may take a quick cat nap. He does still snore a little bit (had uvuloplasty in the past) but Aylin does not report seeing apneic episodes or major snoring Mood: reasonably OK - but somewhat discouraged due to his memory ADL's requires assistance with the following ADL's: taking medications, driving and finances Driving?: No PAST MEDICAL HISTORY Diagnosis Date CAD (coronary artery disease) 04/25/2013 History: not know prior. Was not on a statin or asa. Assessment: Pt now admitted with NSTEMI. Plan: - ASA, statin started - lipid panel - [facility] Essential hypertension 12/30/2016 Fracture nose, collar bone, fingers, toes from previous sports injuries. Hayfever Hernia, inguinal Hyperlipidemia 05/04 NSTEMI (non-ST elevated myocardial infarction) (HCC) 04/25/2013 Peripheral vascular disease (HCC) Personal history of unspecified urinary disorder SOCIAL HISTORY Social History Tobacco Use Smoking status: Never Smoker Smokeless tobacco: Never Used Vaping Use Vaping Use: Never used Substance Use Topics Alcohol use: Not Currently Drug use: No Social History reviewed by Belem Rg APRN.CNP PATIENT-ENTERED DATA Patient-Reported 07/07/2021 12/25/2020 Where are you currently living? Home / Private residence Home / Private residence Are you using any community resources to help care for yourself? No No Has your caregiver accompanied you today? Yes No Did you receive help completing this questionnaire? Yes No If you received help, could you have completed this questionnaire on your own? Yes N/A - I did not receive any help Activities of Daily Living (ADL) No flowsheet data found. PROMIS-10 PROMIS 10 07/07/2021 03/21/2021 In general, would you say your health is: Good Good In general, would you say your quality of life is: Good Good In general, how would you rate your physical health? Good Very good In general, how would you rate your mental health, including your mood and your ability to think? Fair Fair In general, how would you rate your satisfaction with your social activities and relationships? Good - To what extent are you able to carry out your everyday physical activities such as walking, climbing stairs, carrying groceries, or moving a chair? Completely Completely In general, please rate how well you carry out your usual social activities and roles. (This includes activities at home, at work and in your community, and responsibilities as a parent, child, spouse, employee, friend, etc.) Good Fair How would you rate your pain on average? 0 - No Pain - How would you rate your fatigue on average? Moderate Moderate How often have you been bothered by emotional problems such as feeling anxious, depressed or irritable? Sometimes Sometimes PROMIS Adult Short Form-Global Health Score (Physical) 50.8 (Very Good) Incomplete PROMIS Adult Short Form-Global Health Score (Mental) 41.1 (Good) Incomplete PHQ-9 PHQ-9 All Questions 07/07/2021 12/25/2020 Little interest or pleasure in doing things 1 1 Feeling down, depressed, or hopeless 0 1 Trouble falling or staying asleep, or sleeping too much 0 0 Feeling tired or having little energy 1 1 Poor appetite or overeating 0 0 Feeling bad about yourself - or that you are a failure or have let yourself or your family down 0 0 Trouble concentrating on things, such as reading the newspaper or watching television 2 1 Moving or speaking so slowly that other people could have noticed. Or the opposite - being so fidgety or restless that you have been moving around a lot more than usual 1 0 Thoughts that you would be better off , or of hurting yourself in some way 0 0 PHQ-9 Score 5 4 (0-4) minimal depression (5-9) mild depression (10-14) moderate depression (15-19) moderately severe depression (20-27) severe depression Full History of PHQ-9 Scores PHQ-9 Score 07/07/2021 5 12/25/2020 4 10/16/2019 2 Sleep 07/07/2021 12/25/2020 What is your average total sleep time per night over the past 4 weeks? 6 hours 6.5 hours What is your average total sleep time during the day over the past 4 weeks? 1 hours 1 hours Have you been diagnosed with sleep apnea? Yes No Are you currently using positive airway pressure (PAP) therapy? No - Do you snore loudly? - No Do you often feel sleepy, tired, or fatigued during the day? - Yes Have you been told that you stop breathing during sleep? - No Have you been told or are you being treated for high blood pressure? - No Probability of moderate-severe sleep apnea (%) SAPS V2 - 56.14 (Recommend sleep study) Insomnia Severity Index 07/07/2021 12/25/2020 Difficulty falling asleep 0 0 Difficulty staying asleep 1 1 Problem waking up too early 1 1 Satisfied/dissatisfied with current sleep pattern 1 1 Sleep interferes with daily functions - 1 Sleep problems noticeable to others 1 1 Worried/distressed about current sleep problems 0 1 Score - 6 Caregiver-Reported 07/07/2021 10/16/2019 Are you the person who cares for the patient the majority of the time? (Primary Caregiver) Yes Yes How are you related to the patient? Spouse Spouse Do you currently reside with the patient? Yes Yes Are you currently employed outside the home? No No What is your gender? Female Female Please enter your age [age] Dementia Severity Rating Scale (DSRS) No flowsheet data found. OBJECTIVE Current Outpatient Medications on File Prior to Visit Medication Sig MYRBETRIQ 50 mg Tb24 Take 1 tablet by mouth once daily losartan (COZAAR) 50 mg tablet Take 1 tablet by mouth once daily memantine (NAMENDA) 10 mg tablet Take 1 tablet by mouth twice daily. tamsulosin (FLOMAX) 0.4 mg TAKE 1 CAPSULE BY MOUTH AT BEDTIME NEEDED finasteride (PROSCAR) 5 mg tablet Take 1 tablet by mouth once daily. To shrink prostate predniSONE (DELTASONE) 10 mg tablet Take 4 tabs daily for 3 days, then 2 tabs daily for 3 days, then 1 tab daily for 3 days with food. (Patient not taking: Reported on 03/24/2021 ) donepezil (ARICEPT) 5 mg tablet Take 1 tablet by mouth once daily. (Patient not taking: Reported on 07/08/2021 ) nitroglycerin sublingual (NITROSTAT) 0.4 mg SL tablet Dissolve 1 tablet under the tongue as needed. for chest pain,every 5 min x3 atorvastatin (LIPITOR) 40 mg tablet Take 0.5 tablets by mouth daily at bedtime. clopidogrel (PLAVIX) 75 mg tablet Take 1 tablet by mouth once daily. fluticasone (FLONASE) 50 mcg/actuation nasal spray Use 2 Sprays in each nostril daily at bedtime. aspirin 81 mg chewable tablet Take 1 tablet by mouth once daily. Lqlzeqlrsnz-Bziqvtaxw-Bgq C-Mn (GLUCOSAMINE CHONDROITIN MAXSTR) 500-400 mg cap Take 1 capsule by mouth once daily. No current facility-administered medications on file prior to visit. Vital Signs: There were no vitals taken for this visit. VIRTUAL VISIT General Medical Exam: General: Well-nourished appearing, NAD. Awake, alert. HEENT: Normocephalic/atraumatic. Neurological Exam: Cognition: alert and cooperative MoCA: Not assessed today (Previous score: 21/30 in 06/2021.) Orientation: alert Appearance: normal grooming Eye contact: normal Facial expression: appropriate Psychomotor: normal Speech/Language: unremarkable -can name, repeat with no dysarthria Mood: OK, but discouraged Affect: pleasant PDW:no SI:no Self-injurious behavior:no Emotional state: calm, cooperative Thought Process: logical Thought Content: appropriate Hallucinations: none Judgment: intact Insight: good Diagnostic Results: MRI Brain from 07/03/21 No evidence of an acute intracranial process or intracranial mass. * Mild generalized volume loss. * Hippocampal volumes at the 2 percentile when compared to age matched normal controls by quantitative analysis. * Mild white matter disease which is nonspecific but likely reflective of chronic microvascular ischemia. * No evidence of parenchymal microhemorrhages by MRI. Scan including images reviewed with patient/family. NPT from 12/05/20 SUMMARY/IMPRESSIONS: Neuropsychological evaluation revealed moderately low to extremely low scores on measures of memory, lexical and semantic verbal fluency, and a measure of mental flexibility. Memory performance was variable; he demonstrated extremely low encoding and delayed recall of a word list and figures, although he benefited from recognition cues on the word list measure. He also showed moderately low delayed recall of short stories, but he again showed some benefit from recognition cues. On brief mood screening measures, he indicated minimal symptoms of depression and minimal symptoms of anxiety. To the degree that the current exam overlapped with the patient's 2020 evaluation, relative declines were observed on measures of semantic and lexical verbal fluency, whereas mild improvements were found on measures of mental flexibility and delayed recognition of a word list. Other areas remained stable. Overall, results of this exam indicate impairment in frontal and temporal lobe cognitive functions. The patient's memory profile was variable, with some evidence of retrieval-based deficits that improved with cueing. His overall performance was fairly similar to his exam approximately 18 months ago, with mild variability. 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 His profile and medical history suggest that cerebrovascular disease may be considered as a possible etiology. Additionally, a neurodegenerative process cannot be ruled out, particularly given his reported progressive symptom course and family history of Alzheimer's disease. As such, further monitoring and work-up appear warranted. 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 We will reach out to Dr. Maria's office to see if we can obtain clearance for you to stop your Plavix for 7 days pre-LP 2. Continue Namenda 10mg twice daily 3. Consider trying a few sessions of Cognitive therapy with any of the therapists below (not an exhaustive list- the schedulers can tell you who else may be nearer to you) -- call [phone] or any of the numbers below to schedule Kathy Swift, ACCOUNT MANAGEMENT SPECIALIST at [facility] call [phone] Margarita Simental, ACCOUNT MANAGEMENT SPECIALIST at [facility] - call [phone] Brandy Avelar, ACCOUNT MANAGEMENT SPECIALIST -- [facility] (appt [phone]) Marita Strickland, ACCOUNT MANAGEMENT SPECIALIST at [facility] ([phone]) Blue Lyons (Tricia) at [facility] ([phone]) Luz Lacey at [facility] ([phone]) Becca Arriola, ACCOUNT MANAGEMENT SPECIALIST at [facility] ([phone]) Trupti Walton, ACCOUNT MANAGEMENT SPECIALIST at [facility] ([phone] ; [phone] fax) Quynh Rangel, ACCOUNT MANAGEMENT SPECIALIST -- [place], ([phone]) Brandy Chapa, REJI -- [facility] / [place] ([phone]) 4. Stay as active and healthy as you can in the meantime Follow up likely for LP and then 4 weeks afterwards to discuss results I spent a total of 40 minutes on the date of service which included [id number] patient care and counseling and educating the patient/spouse. Belem Rg, MSN, OUTSOLE PARAFFINER-C, CNRN documented in this encounter [facility] 08-17-2021 Miscellaneous Notes Pharmacy faxed requesting the following refill. Pending Prescriptions Disp Refills MYRBETRIQ 50 MG TABLET,EXTENDED RELEASE 90 tablet 3 Sig: Take 1 tablet by mouth once daily MARIN: Yes Patient last appointment: 07/2020 Patient Phone numbers: [phone] (home) Request is for script(s) to be escript to pharmacy. Irma Killian Cma documented in this encounter [facility] documented as of this encounter (statuses as of 08/18/2021) [facility]12-04-2013 History of Past illness Narrative* Problem Noted Date Resolved Date SUMMARY 04/25/2013 06/15/2018 Overview: Presentation/Indication for admission/procedure: NSTEMI PMH/PSH: PVD ED Procedure/OR performed (including complications): n/a Brief Hospital Course/Narrative: 67 yo male with history of PVD, intermittent angina for 2 weeks, presented to OSH, found to have elevated troponins and EKG changes, diagnosed NSTEMI. Active Issues/New Events (dated): NSTEMI LVEF: pending RVF: pending Impression/Plan: As below. NSTEMI (non-ST elevated myocardial infarction) 1 06/26/2012 06/15/2018 Overview: History: intermittent angina for 2 weeks. Chest pain persistent today, presented to OSH. Trop 1.32, CKMB 19, EKG with new Q waves in 2, 3 and aVF. Assessment: HD stable. Got ticagrelor load, current chest pain 2/10. ADAM score 2 (age, biomarkers). Plan: - heparin drip - nitroglycerin drip - ticagrelor 90 bid - ASA - LHC -> RCA 100% s/p ALEX, LAD 80% stenosis. - atorvastatin - 04/26/2013 added BB, EF normal. Plan DC home today, have pt return to normal activities in a week and follow up with Lillian Hatfield PA-C in a week and Dr. Mcallister in a month. If symptomatic will schedule PCI to LAD if not symptomatic will order stress test. Start cardiac rehab in a week. documented as of this encounter (statuses as of 10/08/2021) [facility]12-04-2013 History of Past illness Narrative* Problem Noted Date Resolved Date SUMMARY 04/25/2013 06/15/2018 Overview: Presentation/Indication for admission/procedure: NSTEMI PMH/PSH: PVD ED Procedure/OR performed (including complications): n/a Brief Hospital Course/Narrative: 67 yo male with history of PVD, intermittent angina for 2 weeks, presented to OSH, found to have elevated troponins and EKG changes, diagnosed NSTEMI. Active Issues/New Events (dated): NSTEMI LVEF: pending RVF: pending Impression/Plan: As below. NSTEMI (non-ST elevated myocardial infarction) 1 06/26/2012 06/15/2018 Overview: History: intermittent angina for 2 weeks. Chest pain persistent today, presented to OSH. Trop 1.32, CKMB 19, EKG with new Q waves in 2, 3 and aVF. Assessment: HD stable. Got ticagrelor load, current chest pain 2/10. ADAM score 2 (age, biomarkers). Plan: - heparin drip - nitroglycerin drip - ticagrelor 90 bid - ASA - LHC -> RCA 100% s/p ALEX, LAD 80% stenosis. - atorvastatin - 04/26/2013 added BB, EF normal. Plan DC home today, have pt return to normal activities in a week and follow up with Lillian Hatfield PA-C in a week and Dr. Mcallister in a month. If symptomatic will schedule PCI to LAD if not symptomatic will order stress test. Start cardiac rehab in a week. documented as of this encounter (statuses as of 10/12/2021) [facility]12-[facility] History of Past illness Narrative* Problem Noted Date Resolved Date SUMMARY 04/25/2013 06/15/2018 Overview: Presentation/Indication for admission/procedure: NSTEMI PMH/PSH: PVD ED Procedure/OR performed (including complications): n/a Brief Hospital Course/Narrative: 67 yo male with history of PVD, intermittent angina for 2 weeks, presented to OSH, found to have elevated troponins and EKG changes, diagnosed NSTEMI. Active Issues/New Events (dated): NSTEMI LVEF: pending RVF: pending Impression/Plan: As below. NSTEMI (non-ST elevated myocardial infarction) 1 06/26/2012 06/15/2018 Overview: History: intermittent angina for 2 weeks. Chest pain persistent today, presented to OSH. Trop 1.32, CKMB 19, EKG with new Q waves in 2, 3 and aVF. Assessment: HD stable. Got ticagrelor load, current chest pain 2/10. ADAM score 2 (age, biomarkers). Plan: - heparin drip - nitroglycerin drip - ticagrelor 90 bid - ASA - LHC -> RCA 100% s/p ALEX, LAD 80% stenosis. - atorvastatin - 04/26/2013 added BB, EF normal. Plan DC home today, have pt return to normal activities in a week and follow up with Lillian Hatfield PA-C in a week and Dr. Mcallister in a month. If symptomatic will schedule PCI to LAD if not symptomatic will order stress test. Start cardiac rehab in a week. documented as of this encounter (statuses as of 10/12/2021) [facility]12-[facility] History of Past illness Narrative* Problem Noted Date Resolved Date SUMMARY 04/25/2013 06/15/2018 Overview: Presentation/Indication for admission/procedure: NSTEMI PMH/PSH: PVD ED Procedure/OR performed (including complications): n/a Brief Hospital Course/Narrative: 67 yo male with history of PVD, intermittent angina for 2 weeks, presented to OSH, found to have elevated troponins and EKG changes, diagnosed NSTEMI. Active Issues/New Events (dated): NSTEMI LVEF: pending RVF: pending Impression/Plan: As below. NSTEMI (non-ST elevated myocardial infarction) 1 06/26/2012 06/15/2018 Overview: History: intermittent angina for 2 weeks. Chest pain persistent today, presented to OSH. Trop 1.32, CKMB 19, EKG with new Q waves in 2, 3 and aVF. Assessment: HD stable. Got ticagrelor load, current chest pain 07/02. ADAM score 2 (age, biomarkers). Plan: - heparin drip - nitroglycerin drip - ticagrelor 90 bid - ASA - LHC -> RCA 100% s/p ALEX, LAD 80% stenosis. - atorvastatin - 04/26/2013 added BB, EF normal. Plan DC home today, have pt return to normal activities in a week and follow up with Lillian Hatfield PA-C in a week and Dr. Mcallister in a month. If symptomatic will schedule PCI to LAD if not symptomatic will order stress test. Start cardiac rehab in a week. documented as of this encounter (statuses as of 2021) [facility]12-04-2013 History of Past illness Narrative* Problem Noted Date Resolved Date SUMMARY 04/25/2013 06/15/2018 Overview: Presentation/Indication for admission/procedure: NSTEMI PMH/PSH: PVD ED Procedure/OR performed (including complications): n/a Brief Hospital Course/Narrative: 67 yo male with history of PVD, intermittent angina for 2 weeks, presented to OSH, found to have elevated troponins and EKG changes, diagnosed NSTEMI. Active Issues/New Events (dated): NSTEMI LVEF: pending RVF: pending Impression/Plan: As below. NSTEMI (non-ST elevated myocardial infarction) 1 06/26/2012 06/15/2018 Overview: History: intermittent angina for 2 weeks. Chest pain persistent today, presented to OSH. Trop 1.32, CKMB 19, EKG with new Q waves in 2, 3 and aVF. Assessment: HD stable. Got ticagrelor load, current chest pain 2/10. ADAM score 2 (age, biomarkers). Plan: - heparin drip - nitroglycerin drip - ticagrelor 90 bid - ASA - LHC -> RCA 100% s/p ALEX, LAD 80% stenosis. - atorvastatin - 04/26/2013 added BB, EF normal. Plan DC home today, have pt return to normal activities in a week and follow up with Lillian Hatfield PA-C in a week and Dr. Mcallister in a month. If symptomatic will schedule PCI to LAD if not symptomatic will order stress test. Start cardiac rehab in a week. documented as of this encounter (statuses as of 10/21/2021) [facility]12-[facility] History of Past illness Narrative* Problem Noted Date Resolved Date SUMMARY 04/25/2013 06/15/2018 Overview: Presentation/Indication for admission/procedure: NSTEMI PMH/PSH: PVD ED Procedure/OR performed (including complications): n/a Brief Hospital Course/Narrative: 67 yo male with history of PVD, intermittent angina for 2 weeks, presented to OSH, found to have elevated troponins and EKG changes, diagnosed NSTEMI. Active Issues/New Events (dated): NSTEMI LVEF: pending RVF: pending Impression/Plan: As below. NSTEMI (non-ST elevated myocardial infarction) 1 06/26/2012 06/15/2018 Overview: History: intermittent angina for 2 weeks. Chest pain persistent today, presented to OSH. Trop 1.32, CKMB 19, EKG with new Q waves in 2, 3 and aVF. Assessment: HD stable. Got ticagrelor load, current chest pain 2/10. ADAM score 2 (age, biomarkers). Plan: - heparin drip - nitroglycerin drip - ticagrelor 90 bid - ASA - LHC -> RCA 100% s/p ALEX, LAD 80% stenosis. - atorvastatin - 04/26/2013 added BB, EF normal. Plan DC home today, have pt return to normal activities in a week and follow up with Lillian Hatfield PA-C in a week and Dr. Mcallister in a month. If symptomatic will schedule PCI to LAD if not symptomatic will order stress test. Start cardiac rehab in a week. documented as of this encounter (statuses as of 10/21/2021) [facility]12-[facility] History of Past illness Narrative* Problem Noted Date Resolved Date SUMMARY 04/25/2013 06/15/2018 Overview: Presentation/Indication for admission/procedure: NSTEMI PMH/PSH: PVD ED Procedure/OR performed (including complications): n/a Brief Hospital Course/Narrative: 67 yo male with history of PVD, intermittent angina for 2 weeks, presented to OSH, found to have elevated troponins and EKG changes, diagnosed NSTEMI. Active Issues/New Events (dated): NSTEMI LVEF: pending RVF: pending Impression/Plan: As below. NSTEMI (non-ST elevated myocardial infarction) 1 06/26/2012 06/15/2018 Overview: History: intermittent angina for 2 weeks. Chest pain persistent today, presented to OSH. Trop 1.32, CKMB 19, EKG with new Q waves in 2, 3 and aVF. Assessment: HD stable. Got ticagrelor load, current chest pain 2/10. ADAM score 2 (age, biomarkers). Plan: - heparin drip - nitroglycerin drip - ticagrelor 90 bid - ASA - LHC -> RCA 100% s/p ALEX, LAD 80% stenosis. - atorvastatin - 04/26/2013 added BB, EF normal. Plan DC home today, have pt return to normal activities in a week and follow up with Lillian Hatfield PA-C in a week and Dr. Mcallister in a month. If symptomatic will schedule PCI to LAD if not symptomatic will order stress test. Start cardiac rehab in a week. documented as of this encounter (statuses as of 11/03/2021) [facility]12-[facility] History of Past illness Narrative* Problem Noted Date Resolved Date SUMMARY 04/25/2013 06/15/2018 Overview: Presentation/Indication for admission/procedure: NSTEMI PMH/PSH: PVD ED Procedure/OR performed (including complications): n/a Brief Hospital Course/Narrative: 67 yo male with history of PVD, intermittent angina for 2 weeks, presented to OSH, found to have elevated troponins and EKG changes, diagnosed NSTEMI. Active Issues/New Events (dated): NSTEMI LVEF: pending RVF: pending Impression/Plan: As below. NSTEMI (non-ST elevated myocardial infarction) 1 06/26/2012 06/15/2018 Overview: History: intermittent angina for 2 weeks. Chest pain persistent today, presented to OSH. Trop 1.32, CKMB 19, EKG with new Q waves in 2, 3 and aVF. Assessment: HD stable. Got ticagrelor load, current chest pain 2/. ADMA score 2 (age, biomarkers). Plan: - heparin drip - nitroglycerin drip - ticagrelor 90 bid - ASA - LHC -> RCA 100% s/p ALEX, LAD 80% stenosis. - atorvastatin - 04/26/2013 added BB, EF normal. Plan DC home today, have pt return to normal activities in a week and follow up with Lillian Hatfield PA-C in a week and Dr. Mcallister in a month. If symptomatic will schedule PCI to LAD if not symptomatic will order stress test. Start cardiac rehab in a week. documented as of this encounter (statuses as of 11/06/2021) [facility]12-[facility]2013 History of Past illness Narrative* Problem Noted Date Resolved Date SUMMARY 04/25/2013 06/15/2018 Overview: Presentation/Indication for admission/procedure: NSTEMI PMH/PSH: PVD ED Procedure/OR performed (including complications): n/a Brief Hospital Course/Narrative: 67 yo male with history of PVD, intermittent angina for 2 weeks, presented to OSH, found to have elevated troponins and EKG changes, diagnosed NSTEMI. Active Issues/New Events (dated): NSTEMI LVEF: pending RVF: pending Impression/Plan: As below. NSTEMI (non-ST elevated myocardial infarction) 1 06/26/2012 06/15/2018 Overview: History: intermittent angina for 2 weeks. Chest pain persistent today, presented to OSH. Trop 1.32, CKMB 19, EKG with new Q waves in 2, 3 and aVF. Assessment: HD stable. Got ticagrelor load, current chest pain 07/02. ADAM score 2 (age, biomarkers). Plan: - heparin drip - nitroglycerin drip - ticagrelor 90 bid - ASA - LHC -> RCA 100% s/p ALEX, LAD 80% stenosis. - atorvastatin - 04/26/2013 added BB, EF normal. Plan DC home today, have pt return to normal activities in a week and follow up with Lillian Hatfield PA-C in a week and Dr. Mcallister in a month. If symptomatic will schedule PCI to LAD if not symptomatic will order stress test. Start cardiac rehab in a week. documented as of this encounter (statuses as of 11/09/2021) [facility] History of Past illness Narrative* Problem Noted Date Resolved Date SUMMARY 04/25/2013 06/15/2018 Overview: Presentation/Indication for admission/procedure: NSTEMI PMH/PSH: PVD ED Procedure/OR performed (including complications): n/a Brief Hospital Course/Narrative: 67 yo male with history of PVD, intermittent angina for 2 weeks, presented to OSH, found to have elevated troponins and EKG changes, diagnosed NSTEMI. Active Issues/New Events (dated): NSTEMI LVEF: pending RVF: pending Impression/Plan: As below. NSTEMI (non-ST elevated myocardial infarction) 1 06/26/2012 06/15/2018 Overview: History: intermittent angina for 2 weeks. Chest pain persistent today, presented to OSH. Trop 1.32, CKMB 19, EKG with new Q waves in 2, 3 and aVF. Assessment: HD stable. Got ticagrelor load, current chest pain 2/10. ADAM score 2 (age, biomarkers). Plan: - heparin drip - nitroglycerin drip - ticagrelor 90 bid - ASA - LHC -> RCA 100% s/p ALEX, LAD 80% stenosis. - atorvastatin - 04/26/2013 added BB, EF normal. Plan DC home today, have pt return to normal activities in a week and follow up with Lillian Hatfield PA-C in a week and Dr. Mcallister in a month. If symptomatic will schedule PCI to LAD if not symptomatic will order stress test. Start cardiac rehab in a week. documented as of this encounter (statuses as of 11/10/2021) [facility] History of Past illness Narrative* Problem Noted Date Resolved Date SUMMARY 04/25/2013 06/15/2018 Overview: Presentation/Indication for admission/procedure: NSTEMI PMH/PSH: PVD ED Procedure/OR performed (including complications): n/a Brief Hospital Course/Narrative: 67 yo male with history of PVD, intermittent angina for 2 weeks, presented to OSH, found to have elevated troponins and EKG changes, diagnosed NSTEMI. Active Issues/New Events (dated): NSTEMI LVEF: pending RVF: pending Impression/Plan: As below. NSTEMI (non-ST elevated myocardial infarction) 1 06/26/2012 06/15/2018 Overview: History: intermittent angina for 2 weeks. Chest pain persistent today, presented to OSH. Trop 1.32, CKMB 19, EKG with new Q waves in 2, 3 and aVF. Assessment: HD stable. Got ticagrelor load, current chest pain 2/10. ADAM score 2 (age, biomarkers). Plan: - heparin drip - nitroglycerin drip - ticagrelor 90 bid - ASA - LHC -> RCA 100% s/p ALEX, LAD 80% stenosis. - atorvastatin - 04/26/2013 added BB, EF normal. Plan DC home today, have pt return to normal activities in a week and follow up with Lillian Hatfield PA-C in a week and Dr. Mcallister in a month. If symptomatic will schedule PCI to LAD if not symptomatic will order stress test. Start cardiac rehab in a week. documented as of this encounter (statuses as of 11/10/2021) [facility] History of Past illness Narrative* Problem Noted Date Resolved Date SUMMARY 04/25/2013 06/15/2018 Overview: Presentation/Indication for admission/procedure: NSTEMI PMH/PSH: PVD ED Procedure/OR performed (including complications): n/a Brief Hospital Course/Narrative: 67 yo male with history of PVD, intermittent angina for 2 weeks, presented to OSH, found to have elevated troponins and EKG changes, diagnosed NSTEMI. Active Issues/New Events (dated): NSTEMI LVEF: pending RVF: pending Impression/Plan: As below. NSTEMI (non-ST elevated myocardial infarction) 1 06/26/2012 06/15/2018 Overview: History: intermittent angina for 2 weeks. Chest pain persistent today, presented to OSH. Trop 1.32, CKMB 19, EKG with new Q waves in 2, 3 and aVF. Assessment: HD stable. Got ticagrelor load, current chest pain 2/10. ADAM score 2 (age, biomarkers). Plan: - heparin drip - nitroglycerin drip - ticagrelor 90 bid - ASA - LHC -> RCA 100% s/p ALEX, LAD 80% stenosis. - atorvastatin - 04/26/2013 added BB, EF normal. Plan DC home today, have pt return to normal activities in a week and follow up with Lillian Hatfield PA-C in a week and Dr. Mcallister in a month. If symptomatic will schedule PCI to LAD if not symptomatic will order stress test. Start cardiac rehab in a week. documented as of this encounter (statuses as of 01/20/2022) [facility] History of Past illness Narrative* Problem Noted Date Resolved Date SUMMARY 04/25/2013 06/15/2018 Overview: Presentation/Indication for admission/procedure: NSTEMI PMH/PSH: PVD ED Procedure/OR performed (including complications): n/a Brief Hospital Course/Narrative: 67 yo male with history of PVD, intermittent angina for 2 weeks, presented to OSH, found to have elevated troponins and EKG changes, diagnosed NSTEMI. Active Issues/New Events (dated): NSTEMI LVEF: pending RVF: pending Impression/Plan: As below. NSTEMI (non-ST elevated myocardial infarction) 1 06/26/2012 06/15/2018 Overview: History: intermittent angina for 2 weeks. Chest pain persistent today, presented to OSH. Trop 1.32, CKMB 19, EKG with new Q waves in 2, 3 and aVF. Assessment: HD stable. Got ticagrelor load, current chest pain 07/02. ADAM score 2 (age, biomarkers). Plan: - heparin drip - nitroglycerin drip - ticagrelor 90 bid - ASA - LHC -> RCA 100% s/p ALEX, LAD 80% stenosis. - atorvastatin - 04/26/2013 added BB, EF normal. Plan DC home today, have pt return to normal activities in a week and follow up with Lillian Hatfield PA-C in a week and Dr. Mcallister in a month. If symptomatic will schedule PCI to LAD if not symptomatic will order stress test. Start cardiac rehab in a week. documented as of this encounter (statuses as of 01/27/2022) [facility] History of Past illness Narrative* Problem Noted Date Resolved Date SUMMARY 04/25/2013 06/15/2018 Overview: Presentation/Indication for admission/procedure: NSTEMI PMH/PSH: PVD ED Procedure/OR performed (including complications): n/a Brief Hospital Course/Narrative: 67 yo male with history of PVD, intermittent angina for 2 weeks, presented to OSH, found to have elevated troponins and EKG changes, diagnosed NSTEMI. Active Issues/New Events (dated): NSTEMI LVEF: pending RVF: pending Impression/Plan: As below. NSTEMI (non-ST elevated myocardial infarction) 1 06/26/2012 06/15/2018 Overview: History: intermittent angina for 2 weeks. Chest pain persistent today, presented to OSH. Trop 1.32, CKMB 19, EKG with new Q waves in 2, 3 and aVF. Assessment: HD stable. Got ticagrelor load, current chest pain 2/10. ADAM score 2 (age, biomarkers). Plan: - heparin drip - nitroglycerin drip - ticagrelor 90 bid - ASA - LHC -> RCA 100% s/p ALEX, LAD 80% stenosis. - atorvastatin - 04/26/2013 added BB, EF normal. Plan DC home today, have pt return to normal activities in a week and follow up with Lillian Hatfield PA-C in a week and Dr. Macllister in a month. If symptomatic will schedule PCI to LAD if not symptomatic will order stress test. Start cardiac rehab in a week. documented as of this encounter (statuses as of 02/09/2022) [facility] History of Past illness Narrative* Problem Noted Date Resolved Date SUMMARY 04/25/2013 06/15/2018 Overview: Presentation/Indication for admission/procedure: NSTEMI PMH/PSH: PVD ED Procedure/OR performed (including complications): n/a Brief Hospital Course/Narrative: 67 yo male with history of PVD, intermittent angina for 2 weeks, presented to OSH, found to have elevated troponins and EKG changes, diagnosed NSTEMI. Active Issues/New Events (dated): NSTEMI LVEF: pending RVF: pending Impression/Plan: As below. NSTEMI (non-ST elevated myocardial infarction) 1 06/26/2012 06/15/2018 Overview: History: intermittent angina for 2 weeks. Chest pain persistent today, presented to OSH. Trop 1.32, CKMB 19, EKG with new Q waves in 2, 3 and aVF. Assessment: HD stable. Got ticagrelor load, current chest pain 2/10. ADAM score 2 (age, biomarkers). Plan: - heparin drip - nitroglycerin drip - ticagrelor 90 bid - ASA - LHC -> RCA 100% s/p ALEX, LAD 80% stenosis. - atorvastatin - 04/26/2013 added BB, EF normal. Plan DC home today, have pt return to normal activities in a week and follow up with Lillian Hatfield PA-C in a week and Dr. Mcallister in a month. If symptomatic will schedule PCI to LAD if not symptomatic will order stress test. Start cardiac rehab in a week. documented as of this encounter (statuses as of 04/26/2022) [facility] History of Past illness Narrative* Problem Noted Date Resolved Date SUMMARY 04/25/2013 06/15/2018 Overview: Presentation/Indication for admission/procedure: NSTEMI PMH/PSH: PVD ED Procedure/OR performed (including complications): n/a Brief Hospital Course/Narrative: 67 yo male with history of PVD, intermittent angina for 2 weeks, presented to OSH, found to have elevated troponins and EKG changes, diagnosed NSTEMI. Active Issues/New Events (dated): NSTEMI LVEF: pending RVF: pending Impression/Plan: As below. NSTEMI (non-ST elevated myocardial infarction) 1 06/26/2012 06/15/2018 Overview: History: intermittent angina for 2 weeks. Chest pain persistent today, presented to OSH. Trop 1.32, CKMB 19, EKG with new Q waves in 2, 3 and aVF. Assessment: HD stable. Got ticagrelor load, current chest pain 2/10. ADAM score 2 (age, biomarkers). Plan: - heparin drip - nitroglycerin drip - ticagrelor 90 bid - ASA - LHC -> RCA 100% s/p ALEX, LAD 80% stenosis. - atorvastatin - 04/26/2013 added BB, EF normal. Plan DC home today, have pt return to normal activities in a week and follow up with Lillian Hatfield PA-C in a week and Dr. Mcallister in a month. If symptomatic will schedule PCI to LAD if not symptomatic will order stress test. Start cardiac rehab in a week. documented as of this encounter (statuses as of 05/12/2022) [facility] History of Past illness Narrative* Problem Noted Date Resolved Date SUMMARY 04/25/2013 06/15/2018 Overview: Presentation/Indication for admission/procedure: NSTEMI PMH/PSH: PVD ED Procedure/OR performed (including complications): n/a Brief Hospital Course/Narrative: 67 yo male with history of PVD, intermittent angina for 2 weeks, presented to OSH, found to have elevated troponins and EKG changes, diagnosed NSTEMI. Active Issues/New Events (dated): NSTEMI LVEF: pending RVF: pending Impression/Plan: As below. NSTEMI (non-ST elevated myocardial infarction) 1 06/26/2012 06/15/2018 Overview: History: intermittent angina for 2 weeks. Chest pain persistent today, presented to OSH. Trop 1.32, CKMB 19, EKG with new Q waves in 2, 3 and aVF. Assessment: HD stable. Got ticagrelor load, current chest pain 07/02. ADAM score 2 (age, biomarkers). Plan: - heparin drip - nitroglycerin drip - ticagrelor 90 bid - ASA - LHC -> RCA 100% s/p ALEX, LAD 80% stenosis. - atorvastatin - 04/26/2013 added BB, EF normal. Plan DC home today, have pt return to normal activities in a week and follow up with Lillian Hatfield PA-C in a week and Dr. Mcallister in a month. If symptomatic will schedule PCI to LAD if not symptomatic will order stress test. Start cardiac rehab in a week. documented as of this encounter (statuses as of 05/25/2022) [facility]12-04-2013 History of Past illness Narrative* Problem Noted Date Resolved Date SUMMARY 04/25/2013 06/15/2018 Overview: Presentation/Indication for admission/procedure: NSTEMI PMH/PSH: PVD ED Procedure/OR performed (including complications): n/a Brief Hospital Course/Narrative: 67 yo male with history of PVD, intermittent angina for 2 weeks, presented to OSH, found to have elevated troponins and EKG changes, diagnosed NSTEMI. Active Issues/New Events (dated): NSTEMI LVEF: pending RVF: pending Impression/Plan: As below. NSTEMI (non-ST elevated myocardial infarction) 1 06/26/2012 06/15/2018 Overview: History: intermittent angina for 2 weeks. Chest pain persistent today, presented to OSH. Trop 1.32, CKMB 19, EKG with new Q waves in 2, 3 and aVF. Assessment: HD stable. Got ticagrelor load, current chest pain 07/02. ADAM score 2 (age, biomarkers). Plan: - heparin drip - nitroglycerin drip - ticagrelor 90 bid - ASA - LHC -> RCA 100% s/p ALEX, LAD 80% stenosis. - atorvastatin - 04/26/2013 added BB, EF normal. Plan DC home today, have pt return to normal activities in a week and follow up with Lillian Hatfield PA-C in a week and Dr. Mcallister in a month. If symptomatic will schedule PCI to LAD if not symptomatic will order stress test. Start cardiac rehab in a week. documented as of this encounter (statuses as of 06/10/2022) [facility]12-04-2013 History of Past illness Narrative* Problem Noted Date Resolved Date SUMMARY 04/25/2013 06/15/2018 Overview: Presentation/Indication for admission/procedure: NSTEMI PMH/PSH: PVD ED Procedure/OR performed (including complications): n/a Brief Hospital Course/Narrative: 67 yo male with history of PVD, intermittent angina for 2 weeks, presented to OSH, found to have elevated troponins and EKG changes, diagnosed NSTEMI. Active Issues/New Events (dated): NSTEMI LVEF: pending RVF: pending Impression/Plan: As below. NSTEMI (non-ST elevated myocardial infarction) 1 06/26/2012 06/15/2018 Overview: History: intermittent angina for 2 weeks. Chest pain persistent today, presented to OSH. Trop 1.32, CKMB 19, EKG with new Q waves in 2, 3 and aVF. Assessment: HD stable. Got ticagrelor load, current chest pain 2/10. ADAM score 2 (age, biomarkers). Plan: - heparin drip - nitroglycerin drip - ticagrelor 90 bid - ASA - LHC -> RCA 100% s/p ALEX, LAD 80% stenosis. - atorvastatin - 04/26/2013 added BB, EF normal. Plan DC home today, have pt return to normal activities in a week and follow up with Lillian Hatfield PA-C in a week and Dr. Mcallister in a month. If symptomatic will schedule PCI to LAD if not symptomatic will order stress test. Start cardiac rehab in a week. documented as of this encounter (statuses as of 06/21/2022) [facility]12-04-2013 History of Past illness Narrative* Problem Noted Date Resolved Date SUMMARY 04/25/2013 06/15/2018 Overview: Presentation/Indication for admission/procedure: NSTEMI PMH/PSH: PVD ED Procedure/OR performed (including complications): n/a Brief Hospital Course/Narrative: 67 yo male with history of PVD, intermittent angina for 2 weeks, presented to OSH, found to have elevated troponins and EKG changes, diagnosed NSTEMI. Active Issues/New Events (dated): NSTEMI LVEF: pending RVF: pending Impression/Plan: As below. NSTEMI (non-ST elevated myocardial infarction) 1 06/26/2012 06/15/2018 Overview: History: intermittent angina for 2 weeks. Chest pain persistent today, presented to OSH. Trop 1.32, CKMB 19, EKG with new Q waves in 2, 3 and aVF. Assessment: HD stable. Got ticagrelor load, current chest pain 2/10. ADAM score 2 (age, biomarkers). Plan: - heparin drip - nitroglycerin drip - ticagrelor 90 bid - ASA - LHC -> RCA 100% s/p ALEX, LAD 80% stenosis. - atorvastatin - 04/26/2013 added BB, EF normal. Plan DC home today, have pt return to normal activities in a week and follow up with Lillian Hatfield PA-C in a week and Dr. Mcallister in a month. If symptomatic will schedule PCI to LAD if not symptomatic will order stress test. Start cardiac rehab in a week. documented as of this encounter (statuses as of 07/20/2022) [facility]12-04-2013 History of Past illness Narrative* Problem Noted Date Resolved Date SUMMARY 04/25/2013 06/15/2018 Overview: Presentation/Indication for admission/procedure: NSTEMI PMH/PSH: PVD ED Procedure/OR performed (including complications): n/a Brief Hospital Course/Narrative: 67 yo male with history of PVD, intermittent angina for 2 weeks, presented to OSH, found to have elevated troponins and EKG changes, diagnosed NSTEMI. Active Issues/New Events (dated): NSTEMI LVEF: pending RVF: pending Impression/Plan: As below. NSTEMI (non-ST elevated myocardial infarction) 1 06/26/2012 06/15/2018 Overview: History: intermittent angina for 2 weeks. Chest pain persistent today, presented to OSH. Trop 1.32, CKMB 19, EKG with new Q waves in 2, 3 and aVF. Assessment: HD stable. Got ticagrelor load, current chest pain 2/. ADAM score 2 (age, biomarkers). Plan: - heparin drip - nitroglycerin drip - ticagrelor 90 bid - ASA - LHC -> RCA 100% s/p ALEX, LAD 80% stenosis. - atorvastatin - 04/26/2013 added BB, EF normal. Plan DC home today, have pt return to normal activities in a week and follow up with Lillian Hatfield PA-C in a week and Dr. Mcallister in a month. If symptomatic will schedule PCI to LAD if not symptomatic will order stress test. Start cardiac rehab in a week. documented as of this encounter (statuses as of 07/22/2022) [facility]12-04-2013 History of Past illness Narrative* Problem Noted Date Resolved Date SUMMARY 04/25/2013 06/15/2018 Overview: Presentation/Indication for admission/procedure: NSTEMI PMH/PSH: PVD ED Procedure/OR performed (including complications): n/a Brief Hospital Course/Narrative: 67 yo male with history of PVD, intermittent angina for 2 weeks, presented to OSH, found to have elevated troponins and EKG changes, diagnosed NSTEMI. Active Issues/New Events (dated): NSTEMI LVEF: pending RVF: pending Impression/Plan: As below. NSTEMI (non-ST elevated myocardial infarction) 1 06/26/2012 06/15/2018 Overview: History: intermittent angina for 2 weeks. Chest pain persistent today, presented to OSH. Trop 1.32, CKMB 19, EKG with new Q waves in 2, 3 and aVF. Assessment: HD stable. Got ticagrelor load, current chest pain 07/02. ADAM score 2 (age, biomarkers). Plan: - heparin drip - nitroglycerin drip - ticagrelor 90 bid - ASA - LHC -> RCA 100% s/p ALEX, LAD 80% stenosis. - atorvastatin - 04/26/2013 added BB, EF normal. Plan DC home today, have pt return to normal activities in a week and follow up with Lillian Hatfield PA-C in a week and Dr. Mcallister in a month. If symptomatic will schedule PCI to LAD if not symptomatic will order stress test. Start cardiac rehab in a week. documented as of this encounter (statuses as of 08/02/2022) [facility]12-04-2013 History of Past illness Narrative* Problem Noted Date Resolved Date SUMMARY 04/25/2013 06/15/2018 Overview: Presentation/Indication for admission/procedure: NSTEMI PMH/PSH: PVD ED Procedure/OR performed (including complications): n/a Brief Hospital Course/Narrative: 67 yo male with history of PVD, intermittent angina for 2 weeks, presented to OSH, found to have elevated troponins and EKG changes, diagnosed NSTEMI. Active Issues/New Events (dated): NSTEMI LVEF: pending RVF: pending Impression/Plan: As below. NSTEMI (non-ST elevated myocardial infarction) 1 06/26/2012 06/15/2018 Overview: History: intermittent angina for 2 weeks. Chest pain persistent today, presented to OSH. Trop 1.32, CKMB 19, EKG with new Q waves in 2, 3 and aVF. Assessment: HD stable. Got ticagrelor load, current chest pain 2/10. ADAM score 2 (age, biomarkers). Plan: - heparin drip - nitroglycerin drip - ticagrelor 90 bid - ASA - LHC -> RCA 100% s/p ALEX, LAD 80% stenosis. - atorvastatin - 04/26/2013 added BB, EF normal. Plan DC home today, have pt return to normal activities in a week and follow up with Lillian Hatfield PA-C in a week and Dr. Mcallister in a month. If symptomatic will schedule PCI to LAD if not symptomatic will order stress test. Start cardiac rehab in a week. documented as of this encounter (statuses as of 08/09/2022) [facility]12-04-2013 History of Past illness Narrative* Problem Noted Date Resolved Date SUMMARY 04/25/2013 06/15/2018 Overview: Presentation/Indication for admission/procedure: NSTEMI PMH/PSH: PVD ED Procedure/OR performed (including complications): n/a Brief Hospital Course/Narrative: 67 yo male with history of PVD, intermittent angina for 2 weeks, presented to OSH, found to have elevated troponins and EKG changes, diagnosed NSTEMI. Active Issues/New Events (dated): NSTEMI LVEF: pending RVF: pending Impression/Plan: As below. NSTEMI (non-ST elevated myocardial infarction) 1 06/26/2012 06/15/2018 Overview: History: intermittent angina for 2 weeks. Chest pain persistent today, presented to OSH. Trop 1.32, CKMB 19, EKG with new Q waves in 2, 3 and aVF. Assessment: HD stable. Got ticagrelor load, current chest pain 2/10. ADAM score 2 (age, biomarkers). Plan: - heparin drip - nitroglycerin drip - ticagrelor 90 bid - ASA - LHC -> RCA 100% s/p ALEX, LAD 80% stenosis. - atorvastatin - 04/26/2013 added BB, EF normal. Plan DC home today, have pt return to normal activities in a week and follow up with Lillian Hatfield PA-C in a week and Dr. Mcallister in a month. If symptomatic will schedule PCI to LAD if not symptomatic will order stress test. Start cardiac rehab in a week. documented as of this encounter (statuses as of 08/23/2022) [facility]12-04[facility]2013 History of Past illness Narrative* Problem Noted Date Resolved Date SUMMARY 04/25/2013 06/15/2018 Overview: Presentation/Indication for admission/procedure: NSTEMI PMH/PSH: PVD ED Procedure/OR performed (including complications): n/a Brief Hospital Course/Narrative: 67 yo male with history of PVD, intermittent angina for 2 weeks, presented to OSH, found to have elevated troponins and EKG changes, diagnosed NSTEMI. Active Issues/New Events (dated): NSTEMI LVEF: pending RVF: pending Impression/Plan: As below. NSTEMI (non-ST elevated myocardial infarction) 1 06/26/2012 06/15/2018 Overview: History: intermittent angina for 2 weeks. Chest pain persistent today, presented to OSH. Trop 1.32, CKMB 19, EKG with new Q waves in 2, 3 and aVF. Assessment: HD stable. Got ticagrelor load, current chest pain 2/10. ADAM score 2 (age, biomarkers). Plan: - heparin drip - nitroglycerin drip - ticagrelor 90 bid - ASA - LHC -> RCA 100% s/p ALEX, LAD 80% stenosis. - atorvastatin - 04/26/2013 added BB, EF normal. Plan DC home today, have pt return to normal activities in a week and follow up with Lillian Hatfield PA-C in a week and Dr. Mcallister in a month. If symptomatic will schedule PCI to LAD if not symptomatic will order stress test. Start cardiac rehab in a week. documented as of this encounter (statuses as of 09/06/2022) [facility]12-04[facility]2013 History of Past illness Narrative* Problem Noted Date Resolved Date SUMMARY 04/25/2013 06/15/2018 Overview: Presentation/Indication for admission/procedure: NSTEMI PMH/PSH: PVD ED Procedure/OR performed (including complications): n/a Brief Hospital Course/Narrative: 67 yo male with history of PVD, intermittent angina for 2 weeks, presented to OSH, found to have elevated troponins and EKG changes, diagnosed NSTEMI. Active Issues/New Events (dated): NSTEMI LVEF: pending RVF: pending Impression/Plan: As below. NSTEMI (non-ST elevated myocardial infarction) 1 06/26/2012 06/15/2018 Overview: History: intermittent angina for 2 weeks. Chest pain persistent today, presented to OSH. Trop 1.32, CKMB 19, EKG with new Q waves in 2, 3 and aVF. Assessment: HD stable. Got ticagrelor load, current chest pain 2/. ADAM score 2 (age, biomarkers). Plan: - heparin drip - nitroglycerin drip - ticagrelor 90 bid - ASA - LHC -> RCA 100% s/p ALEX, LAD 80% stenosis. - atorvastatin - 04/26/2013 added BB, EF normal. Plan DC home today, have pt return to normal activities in a week and follow up with Lillian Hatfield PA-C in a week and Dr. Mcallister in a month. If symptomatic will schedule PCI to LAD if not symptomatic will order stress test. Start cardiac rehab in a week. documented as of this encounter (statuses as of 10/29/2022) [facility]12-[facility]2013 History of Past illness Narrative* Problem Noted Date Resolved Date SUMMARY 04/25/2013 06/15/2018 Overview: Presentation/Indication for admission/procedure: NSTEMI PMH/PSH: PVD ED Procedure/OR performed (including complications): n/a Brief Hospital Course/Narrative: 67 yo male with history of PVD, intermittent angina for 2 weeks, presented to OSH, found to have elevated troponins and EKG changes, diagnosed NSTEMI. Active Issues/New Events (dated): NSTEMI LVEF: pending RVF: pending Impression/Plan: As below. NSTEMI (non-ST elevated myocardial infarction) 1 06/26/2012 06/15/2018 Overview: History: intermittent angina for 2 weeks. Chest pain persistent today, presented to OSH. Trop 1.32, CKMB 19, EKG with new Q waves in 2, 3 and aVF. Assessment: HD stable. Got ticagrelor load, current chest pain 2/10. ADAM score 2 (age, biomarkers). Plan: - heparin drip - nitroglycerin drip - ticagrelor 90 bid - ASA - LHC -> RCA 100% s/p ALEX, LAD 80% stenosis. - atorvastatin - 04/26/2013 added BB, EF normal. Plan DC home today, have pt return to normal activities in a week and follow up with Lillian Hatfield PA-C in a week and Dr. Mcallister in a month. If symptomatic will schedule PCI to LAD if not symptomatic will order stress test. Start cardiac rehab in a week. documented as of this encounter (statuses as of 10/19/2022) [facility]12-[facility]2013 History of Past illness Narrative* Problem Noted Date Resolved Date SUMMARY 04/25/2013 06/15/2018 Overview: Presentation/Indication for admission/procedure: NSTEMI PMH/PSH: PVD ED Procedure/OR performed (including complications): n/a Brief Hospital Course/Narrative: 67 yo male with history of PVD, intermittent angina for 2 weeks, presented to OSH, found to have elevated troponins and EKG changes, diagnosed NSTEMI. Active Issues/New Events (dated): NSTEMI LVEF: pending RVF: pending Impression/Plan: As below. NSTEMI (non-ST elevated myocardial infarction) 1 06/26/2012 06/15/2018 Overview: History: intermittent angina for 2 weeks. Chest pain persistent today, presented to OSH. Trop 1.32, CKMB 19, EKG with new Q waves in 2, 3 and aVF. Assessment: HD stable. Got ticagrelor load, current chest pain 2/10. ADAM score 2 (age, biomarkers). Plan: - heparin drip - nitroglycerin drip - ticagrelor 90 bid - ASA - LHC -> RCA 100% s/p ALEX, LAD 80% stenosis. - atorvastatin - 04/26/2013 added BB, EF normal. Plan DC home today, have pt return to normal activities in a week and follow up with Lillian Hatfield PA-C in a week and Dr. Mcallister in a month. If symptomatic will schedule PCI to LAD if not symptomatic will order stress test. Start cardiac rehab in a week. documented as of this encounter (statuses as of 11/25/2022) [facility]12-04[facility]2013 History of Past illness Narrative* Problem Noted Date Diagnosed Date Resolved Date SUMMARY 04/25/2013 06/15/2018 Overview: Presentation/Indication for admission/procedure: NSTEMI PMH/PSH: PVD ED Procedure/OR performed (including complications): n/a Brief Hospital Course/Narrative: 67 yo male with history of PVD, intermittent angina for 2 weeks, presented to OSH, found to have elevated troponins and EKG changes, diagnosed NSTEMI. Active Issues/New Events (dated): NSTEMI LVEF: pending RVF: pending Impression/Plan: As below. NSTEMI (non-ST elevated myoc ardial infarction) 04/25/2013 06/15/2018 Overview: History: intermittent angina for 2 weeks. Chest pain persistent today, presented to OSH. Trop 1.32, CKMB 19, EKG with new Q waves in 2, 3 and aVF. Assessment: HD stable. Got ticagrelor load, current chest pain 2/. ADAM score 2 (age, biomarkers). Plan: - heparin drip - nitroglycerin drip - ticagrelor 90 bid - ASA - LHC -> RCA 100% s/p ALEX, LAD 80% stenosis. - atorvastatin - 04/26/2013 added BB, EF normal. Plan DC home today, have pt return to normal activities in a week and follow up with Lillian Hatfield PA-C in a week and Dr. Mcallister in a month. If symptomatic will schedule PCI to LAD if not symptomatic will order stress test. Start cardiac rehab in a week. documented as of this encounter (statuses as of 12/07/2022) [facility]2013 History of Past illness Narrative* Problem Noted Date Diagnosed Date Resolved Date SUMMARY 04/25/2013 06/15/2018 Overview: Presentation/Indication for admission/procedure: NSTEMI PMH/PSH: PVD ED Procedure/OR performed (including complications): n/a Brief Hospital Course/Narrative: 67 yo male with history of PVD, intermittent angina for 2 weeks, presented to OSH, found to have elevated troponins and EKG changes, diagnosed NSTEMI. Active Issues/New Events (dated): NSTEMI LVEF: pending RVF: pending Impression/Plan: As below. NSTEMI (non-ST elevated myoc ardial infarction) 04/25/2013 06/15/2018 Overview: History: intermittent angina for 2 weeks. Chest pain persistent today, presented to OSH. Trop 1.32, CKMB 19, EKG with new Q waves in 2, 3 and aVF. Assessment: HD stable. Got ticagrelor load, current chest pain 2/10. ADAM score 2 (age, biomarkers). Plan: - heparin drip - nitroglycerin drip - ticagrelor 90 bid - ASA - LHC -> RCA 100% s/p ALEX, LAD 80% stenosis. - atorvastatin - 04/26/2013 added BB, EF normal. Plan DC home today, have pt return to normal activities in a week and follow up with Lillian Hatfield PA-C in a week and Dr. Mcallister in a month. If symptomatic will schedule PCI to LAD if not symptomatic will order stress test. Start cardiac rehab in a week. documented as of this encounter (statuses as of 01/17/2023) [facility]12[facility]2013 History of Past illness Narrative* Problem Noted Date Diagnosed Date Resolved Date SUMMARY 04/25/2013 06/15/2018 Overview: Presentation/Indication for admission/procedure: NSTEMI PMH/PSH: PVD ED Procedure/OR performed (including complications): n/a Brief Hospital Course/Narrative: 67 yo male with history of PVD, intermittent angina for 2 weeks, presented to OSH, found to have elevated troponins and EKG changes, diagnosed NSTEMI. Active Issues/New Events (dated): NSTEMI LVEF: pending RVF: pending Impression/Plan: As below. NSTEMI (non-ST elevated myoc ardial infarction) 04/25/2013 06/15/2018 Overview: History: intermittent angina for 2 weeks. Chest pain persistent today, presented to OSH. Trop 1.32, CKMB 19, EKG with new Q waves in 2, 3 and aVF. Assessment: HD stable. Got ticagrelor load, current chest pain 07/02. ADAM score 2 (age, biomarkers). Plan: - heparin drip - nitroglycerin drip - ticagrelor 90 bid - ASA - LHC -> RCA 100% s/p ALEX, LAD 80% stenosis. - atorvastatin - 04/26/2013 added BB, EF normal. Plan DC home today, have pt return to normal activities in a week and follow up with Lillian Hatfield PA-C in a week and Dr. Mcallister in a month. If symptomatic will schedule PCI to LAD if not symptomatic will order stress test. Start cardiac rehab in a week. documented as of this encounter (statuses as of 01/25/2023) [facility]2013 History of Past illness Narrative* Problem Noted Date Diagnosed Date Resolved Date SUMMARY 04/25/2013 06/15/2018 Overview: Presentation/Indication for admission/procedure: NSTEMI PMH/PSH: PVD ED Procedure/OR performed (including complications): n/a Brief Hospital Course/Narrative: 67 yo male with history of PVD, intermittent angina for 2 weeks, presented to OSH, found to have elevated troponins and EKG changes, diagnosed NSTEMI. Active Issues/New Events (dated): NSTEMI LVEF: pending RVF: pending Impression/Plan: As below. NSTEMI (non-ST elevated myoc ardial infarction) 04/25/2013 06/15/2018 Overview: History: intermittent angina for 2 weeks. Chest pain persistent today, presented to OSH. Trop 1.32, CKMB 19, EKG with new Q waves in 2, 3 and aVF. Assessment: HD stable. Got ticagrelor load, current chest pain 2/10. ADAM score 2 (age, biomarkers). Plan: - heparin drip - nitroglycerin drip - ticagrelor 90 bid - ASA - LHC -> RCA 100% s/p ALEX, LAD 80% stenosis. - atorvastatin - 04/26/2013 added BB, EF normal. Plan DC home today, have pt return to normal activities in a week and follow up with Lillian Hatfield PA-C in a week and Dr. Mcallister in a month. If symptomatic will schedule PCI to LAD if not symptomatic will order stress test. Start cardiac rehab in a week. documented as of this encounter (statuses as of 02/14/2023) [facility] History of Past illness Narrative* Problem Noted Date Diagnosed Date Resolved Date SUMMARY 04/25/2013 06/15/2018 Overview: Presentation/Indication for admission/procedure: NSTEMI PMH/PSH: PVD ED Procedure/OR performed (including complications): n/a Brief Hospital Course/Narrative: 67 yo male with history of PVD, intermittent angina for 2 weeks, presented to OSH, found to have elevated troponins and EKG changes, diagnosed NSTEMI. Active Issues/New Events (dated): NSTEMI LVEF: pending RVF: pending Impression/Plan: As below. NSTEMI (non-ST elevated myoc ardial infarction) 04/25/2013 06/15/2018 Overview: History: intermittent angina for 2 weeks. Chest pain persistent today, presented to OSH. Trop 1.32, CKMB 19, EKG with new Q waves in 2, 3 and aVF. Assessment: HD stable. Got ticagrelor load, current chest pain 2/10. ADAM score 2 (age, biomarkers). Plan: - heparin drip - nitroglycerin drip - ticagrelor 90 bid - ASA - LHC -> RCA 100% s/p ALEX, LAD 80% stenosis. - atorvastatin - 04/26/2013 added BB, EF normal. Plan DC home today, have pt return to normal activities in a week and follow up with Lillian Hatfield PA-C in a week and Dr. Mcallister in a month. If symptomatic will schedule PCI to LAD if not symptomatic will order stress test. Start cardiac rehab in a week. documented as of this encounter (statuses as of 02/23/2023) [facility] History of Past illness Narrative* Problem Noted Date Diagnosed Date Resolved Date SUMMARY 04/25/2013 06/15/2018 Overview: Presentation/Indication for admission/procedure: NSTEMI PMH/PSH: PVD ED Procedure/OR performed (including complications): n/a Brief Hospital Course/Narrative: 67 yo male with history of PVD, intermittent angina for 2 weeks, presented to OSH, found to have elevated troponins and EKG changes, diagnosed NSTEMI. Active Issues/New Events (dated): NSTEMI LVEF: pending RVF: pending Impression/Plan: As below. NSTEMI (non-ST elevated myoc ardial infarction) 04/25/2013 06/15/2018 Overview: History: intermittent angina for 2 weeks. Chest pain persistent today, presented to OSH. Trop 1.32, CKMB 19, EKG with new Q waves in 2, 3 and aVF. Assessment: HD stable. Got ticagrelor load, current chest pain 2/10. ADAM score 2 (age, biomarkers). Plan: - heparin drip - nitroglycerin drip - ticagrelor 90 bid - ASA - LHC -> RCA 100% s/p ALEX, LAD 80% stenosis. - atorvastatin - 04/26/2013 added BB, EF normal. Plan DC home today, have pt return to normal activities in a week and follow up with Lillian Hatfield PA-C in a week and Dr. Mcallister in a month. If symptomatic will schedule PCI to LAD if not symptomatic will order stress test. Start cardiac rehab in a week. 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 [facility] Diagnosis COVID-19 vaccine administered- Primary [facility] Diagnosis MCI (mild cognitive impairment)- Primary Mild cognitive impairment, so stated [facility] Diagnosis Examination of participant in clinical trial- Primary Encounter for screening for cardiovascular disorders Screening for other and unspecified cardiovascular conditions [facility] Diagnosis Examination of participant in clinical trial- Primary [facility] Diagnosis MCI (mild cognitive impairment)- Primary Mild cognitive impairment, so stated Encounter for lumbar puncture [facility] Diagnosis Essential hypertension Unspecified essential hypertension [facility] Diagnosis Benign prostatic hyperplasia with nocturia [facility] Diagnosis BPH with obstruction/lower urinary tract symptoms Hypertrophy of prostate with urinary obstruction and other lower urinary tract symptoms (LUTS) [facility] Diagnosis Essential hypertension- Primary Unspecified essential hypertension BPH with obstruction/lower urinary tract symptoms Hypertrophy of prostate with urinary obstruction and other lower urinary tract symptoms (LUTS) PVD (peripheral vascular disease) (HCC) Peripheral vascular disease, unspecified Moderate late onset Alzheimer's dementia without behavioral disturbance, psychotic disturbance, mood disturbance, or anxiety (HCC) Hypercholesterolemia Pure hypercholesterolemia [facility] Diagnosis Benign prostatic hyperplasia with nocturia [facility] Diagnosis Essential hypertension Unspecified essential hypertension [facility] Diagnosis BPH with obstruction/lower urinary tract symptoms Hypertrophy of prostate with urinary obstruction and other lower urinary tract symptoms (LUTS) [facility] Diagnosis Benign prostatic hyperplasia with nocturia [facility] Diagnosis Immunization due- Primary Need for prophylactic vaccination and inoculation against unspecified single disease Need for vaccination Need for prophylactic vaccination and inoculation against unspecified single disease [facility] Diagnosis Benign prostatic hyperplasia with nocturia [facility] Diagnosis Essential hypertension Unspecified essential hypertension [facility] Diagnosis Benign prostatic hyperplasia with nocturia [facility] Summary Purpose Family History No Family History Records FoundNo Family History Records FoundNo Family History Records FoundNo Family History Records FoundNo Family History Records Found Advance Directives Documents on File Type Date Recorded Patient Mental Health Professional Expl anation Advance Directive(s) Advance Directive(s) 06/21/2018 11:12 AM Advance Directive(s) 06/12/2018 3:03 PM Advance Directive(s) 05/30/2018 8:39 AM Documents on File Type Date Recorded Patient Mental Health Professional Expl anation Advance Directive(s) Advance Directive(s) 06/21/2018 11:12 AM Advance Directive(s) 06/12/2018 3:03 PM Advance Directive(s) 05/30/2018 8:39 AM Documents on File Type Date Recorded Patient Mental Health Professional Expl anation Advance Directive(s) 06/12/2018 3:03 PM Documents on File Type Date Recorded Patient Mental Health Professional Expl anation Advance Directive(s) 06/12/2018 3:03 PM Reason for Referral Specialty Diagnoses / Procedures Referred By Deepika patel Referred To Contact [facility] Diagnoses MCI (mild cognitive impairment) Amnestic disorder Procedures CONSULT TO SPEECH THERAPY OFFICE/OUTPATIENT [facility] 60-74 MINUTES Belem Rg, VRT MECHANIC.DELIVERY STOCK CLERK [address] [place] [address] [facility] [place] [address] [place] [address] Referral ID Status Reason Start Date Expiration Date Visits Requested Visits Authorized [id number] Authorized Auto-Generat ed Referral 10/08/2021 10/08/2022 99 99 Specialty Diagnoses / Procedures Referred By Deepika patel Referred To Contact Belem Rg, VRT MECHANIC.DELIVERY STOCK CLERK [address] [place] [address] Referral ID Status Reason Start Date Expiration Date Visits Re quested Visits Authorized [id number] Closed 1 1 Additional Source Comments (unrecognized sect ion and content) No Status Records FoundNo Status Records FoundNo Status Records FoundNo Status Records FoundNo Status Records Found INFORMATION SOURCE (unrecogn ized section and content) DATE CREATED AUTHOR AUTHOR'S JOEY ATION 11/11/2017 [facility] DATE CREATED AUTHOR AUTHOR'S ORGANIZ ATION 11/14/2017 [facility] DATE CREATED AUTHOR AUTHOR'S ORGANIZ ATION 07/11/2018 [facility] DATE CREATED AUTHOR AUTHOR'S ORGANIZ ATION 02/24/2023 [facility] Source Comments (unrecognize d section and content) In the event this informatio n is protected by the Federal Confidentiality of Alcohol and Drug Abuse Patient Records regulations: The Federal rules restrict any use of the information to criminally investigate or prosecute any alcohol or drug abuse patient.[facility] the event this information is protected by the Federal Confidentiality of Alcohol and Drug Abuse Patient Records regulations: The Federal rules restrict any use of the information to criminally investigate or prosecute any alcohol or drug abuse patient.[facility] the event this information is protected by the Federal Confidentiality of Alcohol and Drug Abuse Patient Records regulations: The Federal rules restrict any use of the information to criminally investigate or prosecute any alcohol or drug abuse patient.[facility] the event this information is protected by the Federal Confidentiality of Alcohol and Drug Abuse Patient Records regulations: The Federal rules restrict any use of the information to criminally investigate or prosecute any alcohol or drug abuse patient.[facility] the event this information is protected by the Federal Confidentiality of Alcohol and Drug Abuse Patient Records regulations: The Federal rules restrict any use of the information to criminally investigate or prosecute any alcohol or drug abuse patient.[facility] the event this information is protected by the Federal Confidentiality of Alcohol and Drug Abuse Patient Records regulations: The Federal rules restrict any use of the information to criminally investigate or prosecute any alcohol or drug abuse patient.[facility] the event this information is protected by the Federal Confidentiality of Alcohol and Drug Abuse Patient Records regulations: The Federal rules restrict any use of the information to criminally investigate or prosecute any alcohol or drug abuse patient.[facility] the event this information is protected by the Federal Confidentiality of Alcohol and Drug Abuse Patient Records regulations: The Federal rules restrict any use of the information to criminally investigate or prosecute any alcohol or drug abuse patient.[facility] the event this information is protected by the Federal Confidentiality of Alcohol and Drug Abuse Patient Records regulations: The Federal rules restrict any use of the information to criminally investigate or prosecute any alcohol or drug abuse patient.[facility] the event this information is protected by the Federal Confidentiality of Alcohol and Drug Abuse Patient Records regulations: The Federal rules restrict any use of the information to criminally investigate or prosecute any alcohol or drug abuse patient.[facility] the event this information is protected by the Federal Confidentiality of Alcohol and Drug Abuse Patient Records regulations: The Federal rules restrict any use of the information to criminally investigate or prosecute any alcohol or drug abuse patient.[facility] the event this information is protected by the Federal Confidentiality of Alcohol and Drug Abuse Patient Records regulations: The Federal rules restrict any use of the information to criminally investigate or prosecute any alcohol or drug abuse patient.[facility] the event this information is protected by the Federal Confidentiality of Alcohol and Drug Abuse Patient Records regulations: The Federal rules restrict any use of the information to criminally investigate or prosecute any alcohol or drug abuse patient.[facility] the event this information is protected by the Federal Confidentiality of Alcohol and Drug Abuse Patient Records regulations: The Federal rules restrict any use of the information to criminally investigate or prosecute any alcohol or drug abuse patient.[facility] the event this information is protected by the Federal Confidentiality of Alcohol and Drug Abuse Patient Records regulations: The Federal rules restrict any use of the information to criminally investigate or prosecute any alcohol or drug abuse patient.[facility] the event this information is protected by the Federal Confidentiality of Alcohol and Drug Abuse Patient Records regulations: The Federal rules restrict any use of the information to criminally investigate or prosecute any alcohol or drug abuse patient.[facility] the event this information is protected by the Federal Confidentiality of Alcohol and Drug Abuse Patient Records regulations: The Federal rules restrict any use of the information to criminally investigate or prosecute any alcohol or drug abuse patient.[facility] the event this information is protected by the Federal Confidentiality of Alcohol and Drug Abuse Patient Records regulations: The Federal rules restrict any use of the information to criminally investigate or prosecute any alcohol or drug abuse patient.[facility] the event this information is protected by the Federal Confidentiality of Alcohol and Drug Abuse Patient Records regulations: The Federal rules restrict any use of the information to criminally investigate or prosecute any alcohol or drug abuse patient.[facility] the event this information is protected by the Federal Confidentiality of Alcohol and Drug Abuse Patient Records regulations: The Federal rules restrict any use of the information to criminally investigate or prosecute any alcohol or drug abuse patient.[facility] the event this information is protected by the Federal Confidentiality of Alcohol and Drug Abuse Patient Records regulations: The Federal rules restrict any use of the information to criminally investigate or prosecute any alcohol or drug abuse patient.[facility] the event this information is protected by the Federal Confidentiality of Alcohol and Drug Abuse Patient Records regulations: The Federal rules restrict any use of the information to criminally investigate or prosecute any alcohol or drug abuse patient.[facility] the event this information is protected by the Federal Confidentiality of Alcohol and Drug Abuse Patient Records regulations: The Federal rules restrict any use of the information to criminally investigate or prosecute any alcohol or drug abuse patient.[facility] the event this information is protected by the Federal Confidentiality of Alcohol and Drug Abuse Patient Records regulations: The Federal rules restrict any use of the information to criminally investigate or prosecute any alcohol or drug abuse patient.[facility] the event this information is protected by the Federal Confidentiality of Alcohol and Drug Abuse Patient Records regulations: The Federal rules restrict any use of the information to criminally investigate or prosecute any alcohol or drug abuse patient.[facility] the event this information is protected by the Federal Confidentiality of Alcohol and Drug Abuse Patient Records regulations: The Federal rules restrict any use of the information to criminally investigate or prosecute any alcohol or drug abuse patient.[facility] the event this information is protected by the Federal Confidentiality of Alcohol and Drug Abuse Patient Records regulations: The Federal rules restrict any use of the information to criminally investigate or prosecute any alcohol or drug abuse patient.[facility] the event this information is protected by the Federal Confidentiality of Alcohol and Drug Abuse Patient Records regulations: The Federal rules restrict any use of the information to criminally investigate or prosecute any alcohol or drug abuse patient.[facility] the event this information is protected by the Federal Confidentiality of Alcohol and Drug Abuse Patient Records regulations: The Federal rules restrict any use of the information to criminally investigate or prosecute any alcohol or drug abuse patient.[facility] the event this information is protected by the Federal Confidentiality of Alcohol and Drug Abuse Patient Records regulations: The Federal rules restrict any use of the information to criminally investigate or prosecute any alcohol or drug abuse patient.[facility]In the event this information is protected by the Federal Confidentiality of Alcohol and Drug Abuse Patient Records regulations: The Federal rules restrict any use of the information to criminally investigate or prosecute any alcohol or drug abuse patient.[facility] the event this information is protected by the Federal Confidentiality of Alcohol and Drug Abuse Patient Records regulations: The Federal rules restrict any use of the information to criminally investigate or prosecute any alcohol or drug abuse patient.[facility]In the event this information is protected by the Federal Confidentiality of Alcohol and Drug Abuse Patient Records regulations: The Federal rules restrict any use of the information to criminally investigate or prosecute any alcohol or drug abuse patient.[facility]In the event this information is protected by the Federal Confidentiality of Alcohol and Drug Abuse Patient Records regulations: The Federal rules restrict any use of the information to criminally investigate or prosecute any alcohol or drug abuse patient.[facility] the event this information is protected by the Federal Confidentiality of Alcohol and Drug Abuse Patient Records regulations: The Federal rules restrict any use of the information to criminally investigate or prosecute any alcohol or drug abuse patient.[facility] the event this information is protected by the Federal Confidentiality of Alcohol and Drug Abuse Patient Records regulations: The Federal rules restrict any use of the information to criminally investigate or prosecute any alcohol or drug abuse patient.[facility] Reason for Visit (unrecogniz ed section and content) Reason Comments Follow Up Reason Comments Systems Technician - Other Reason Comments Immunizations Reason Comments Electronic Communication Reason Comments Orders Reason Comments Research [id number] [facility] Biobank Reason Comments Lumbar Puncture Reason Comments Received Outside Medical Records [facility] Reason Comments Follow Up Reason Comments Research IRB #[id number] Reason Comments Appointment Reason Onset Date Comments Refill Request 09/06/2022 Reason Comments Allied Health Visit Covid Booster Reason Comments Received Outside Medical Records [facility] 12/03/22 Reason Comments Appointment lvm to pt , zachary ent is due for a follow up Care Teams (unrecognized sec tion and content) Knockout Machine Operator Relationship Specialty Start Date End Date Mami Rodriguez MD [address] [place], [place] [id number] PCP - General Family Practice 04/08/12 Knockout Machine Operator Relationship Specialty Start Date End Date Mami Rodriguez MD [address], [place] [id number] PCP - General Family Practice 04/08/12 Knockout Machine Operator Relationship Specialty Start Date End Date Mami Rodriguez MD [address] [facility] [place] [address] PCP - General Family Practice 04/08/12 Knockout Machine Operator Relationship Specialty Start Date End Date Mami Rodriguez MD [facility] [place] [address] PCP - General Family Practice 04/08/12 Knockout Machine Operator Relationship Specialty Start Date End Date Mami Rodriguez MD [facility] [place] [address] PCP - General Family Practice 04/08/12 Knockout Machine Operator Relationship Specialty Start Date End Date Mami Rodriguez MD [address] [place] [address], [place] [address] PCP - General Family Practice 04/08/12 Knockout Machine Operator Relationship Specialty Start Date End Date Mami Rodriguez MD [address] [place] [address], [place] [address] PCP - General Family Practice 04/08/12 Knockout Machine Operator Relationship Specialty Start Date End Date Mami Rodriguez MD [address] [place] [address], [place] [address] PCP - General Family Practice 04/08/12 Knockout Machine Operator Relationship Specialty Start Date End Date Mami Rodriguez MD [address] [place] [address], [place] [address] PCP - General Family Practice 04/08/12 Knockout Machine Operator Relationship Specialty Start Date End Date Mami Rodriguez MD [address] [place] [address], [place] [address] PCP - General Family Medicine 04/08/12 Knockout Machine Operator Relationship Specialty Start Date End Date Mami Rodriguez MD [address] [place] [address], [place] [address] PCP - General Family Medicine 04/08/12 Knockout Machine Operator Relationship Specialty Start Date End Date Mami Rodriguez MD [address] [facility] [place] [address] PCP - General Family Medicine 04/08/12 Knockout Machine Operator Relationship Specialty Start Date End Date Mami Rodriguez MD [address] [place] [address], [place] [address] PCP - General Family Medicine 04/08/12 Knockout Machine Operator Relationship Specialty Start Date End Date Mami Rodriguez MD [address] [place] [address], [place] [address] PCP - General Family Medicine 04/08/12 Knockout Machine Operator Relationship Specialty Start Date End Date Mami Rodriguez MD [address] [place] [address], [place] [address] PCP - General Family Medicine 04/08/12 Knockout Machine Operator Relationship Specialty Start Date End Date Mami Rodriguez MD [address] [place] [address], [place] [address] PCP - General Family Medicine 04/08/12 Knockout Machine Operator Relationship Specialty Start Date End Date Mami Rodriguez MD [address] [place] [address], [place] [address] PCP - General Family Medicine 04/08/12 Knockout Machine Operator Relationship Specialty Start Date End Date Mami Rodriguez MD [address] [place] [address], [place] [address] PCP - General Family Medicine 04/08/12 Knockout Machine Operator Relationship Specialty Start Date End Date Mami Rodriguez MD [address] [place] [address], [place] [address] PCP - General Family Medicine 04/08/12 Knockout Machine Operator Relationship Specialty Start Date End Date Mami Rodriguez MD [address] [facility] [place], [place] [address] PCP - General Family [facility] 04/08/12 Knockout Machine Operator Relationship Specialty Start Date End Date Mami Rodriguez MD [address] [facility] [place], [place] [id number] PCP - [facility] 04/08/12 Knockout Machine Operator Relationship Specialty Start Date End Date Mami Rodriguez MD [address] [facility] [place], [place] [id number] PCP - [facility] 04/08/12 Knockout Machine Operator Relationship Specialty Start Date End Date Mami Rodriguez MD [address] [facility] [place], [place] [address] PCP - [facility] 04/08/12 Knockout Machine Operator Relationship Specialty Start Date End Date Mami Rodriguez MD [address] [facility] [place], [place] [address] PCP - [facility] 04/08/12 FOR RECORDS PERTAINING TO PATIENTS WHO ARE OR HAVE BEEN ENROLLED IN A CHEMICAL DEPENDENCY/SUBSTANCEABUSE PROGRAM, SOME INFORMATION MAY BE OMITTED. This clinical summary was aggregated from multiple sources. Caution should be exercised in using it in the provision of clinical care. This summary normalizes information from multiple sources, and as a consequence, information in this document may materially change the coding, format and clinical context of patient data. In addition, data may be omitted in some cases. CLINICAL DECISIONS SHOULD BE BASED ON THE PRIMARY CLINICAL RECORDS. [facility]. provides no warranty or guarantee of the accuracy or completeness of information in this document.
--- NOTE | 2023-07-13 07:01 | CDU_ITS ---
Reason For Study: Bruit Rt. Velocities/BP Lt. Velocities/BP Prox CCA 60.7/15.4 cm/sec. Prox CCA 59.8/15.4 cm/sec. Mid CCA 65.5/15.4 cm/sec. Mid CCA 64.5/23 cm/sec. Dist CCA 57.9/17.3 cm/sec. Dist CCA 59.8/15.4 cm/sec. Prox ICA 39/13.5 cm/sec. Prox ICA 58.9/16.3 cm/sec. Mid ICA 58.9/20.1 cm/sec. Mid ICA 73/23 cm/sec. Dist ICA 59.8/22 cm/sec. Dist ICA 66.4/27.7 cm/sec. Rt. ICA/CCA = 0.97. Lt. ICA/CCA = 1.22. Prox ECA 69.2/11.6 cm/sec. Prox ECA 65.5/8.8 cm/sec. Rt. Vert. 40.9/13.5 cm/sec. Lt. Vert. 39.4/13 cm/sec. Right Extracranial There is heterogeneous, irregular atherosclerotic plaque noted in the right common carotid artery. There is heterogeneous, irregular atherosclerotic plaque noted in the right internal carotid artery. There is intimal thickening but no significant atherosclerotic plaque noted in the right external carotid artery. Antegrade flow is noted in the right vertebral artery. Left Extracranial There is homogeneous, smooth atherosclerotic plaque noted in the left common carotid artery. There is heterogeneous, irregular atherosclerotic plaque noted in the left internal carotid artery. There is intimal thickening but no significant atherosclerotic plaque noted in the left external carotid artery. Antegrade flow is noted in the left vertebral artery. Procedure Carotid Duplex [id number]. This is a Carotid Duplex examination using B-mode, color flow and specral Doppler. Exam performed in department. VL/Carotid Duplex Ultrasound Interpretation Summary Irregular plaque at the proximal right internal carotid artery with less than 5 0% stenosis Less than 50% stenosis right external carotid artery Irregular calcific plaque at the proximal left internal carotid artery with les s than 50% stenosis Less than 50% stenosis left external carotid artery Patent antegrade vertebral arteries bilaterally Ordering Physician: Andrea Hernandez Referring Physician: Deven Ortiz Performed By: Nay Steele RVT
--- NOTE | 2023-07-14 06:31 | STRESSREP ---
Stress Test Report Exercise myocardial perfusion stress test. 77-year-old man with a history of coronary artery disease Stress protocol: Resting EKG demonstrates normal sinus rhythm with a rate of 63 bpm resting blood pressure is 122/88 mmHg. The patient exercised according to the regular Kennedy protocol for a total duration of 4 minutes attaining a maximum heart rate of 126 bpm which was 88 of maximum predicted heart rate; the maximum workload was 7 metabolic equivalents. At rest there were no ST or T wave changes noted to suggest ischemia and at peak exercise upsloping ST changes only were noted which did not meet the criteria for ischemia. No clinical angina was noted the test was terminated due to the target heart rate being achieved/fatigue. The peak blood pressure was 168/82 mmHg. Rate-pressure product was 15,000. Myocardial perfusion protocol. 14.1 mCi of technetium 99m sestamibi was injected at rest. The patient exercised according to regular Kennedy protocol for total duration of 4 minutes and at peak exercise 44.3 mCi of technetium 99m sestamibi was injected stress images were obtained stress and rest images were reconstructed in comparing the short axis vertical long and horizontal long axis. Gated images were also obtained. Perfusion SPECT analysis: Review of the stress images demonstrate normal uptake of tracer noted in all areas of the myocardium. The resting images similarly demonstrate normal uptake of tracer noted in all areas of the myocardium. No areas of reversibility are noted to suggest ischemia no previous infarct was noted. Gated SPECT analysis: The gated ejection fraction is 59%. Conclusion: Normal exercise myocardial perfusion stress test at a moderate workload Preserved ejection fraction.
== END | disposition home or self-care (01) ==
LOC: CVS 06:56
PROVIDERS: PCP Family Medicine; Referring Provider Internal Medicine Cardiovascular Disease; Visit Provider Internal Medicine Cardiovascular Disease
DX: R09.89 Other specified symptoms and signs involving the circulatory and respiratory systems (principal); I25.10 Atherosclerotic heart disease of native coronary artery without angina pectoris
CPT/HCPCS: 78452; 93017; 93880; A9500; A4216

== ENCOUNTER 2023-11-09 15:07 | Emergency (ER) | payer MEDICARE, OTHER, SELFPAY ==
[2023-11-09] VITALS (13 sets, daily range): BP systolic 123–162; BP diastolic 74–128; PULSE 57–71; RESP 13–22; TEMP 35.6–36.2; O2SAT 87–100; BMI 24.7
--- NOTE | 2023-11-09 16:38 | EDS_ITS ---
HPI History of Present Illness Chief Complaint: Chest Pain Informant: patient Onset/Context/Timing Onset: Days (1-2) Activity at onset: gradual Timing: Intermittent Quality: Positive for Tightness Location: Substernal and Left Chest Current Severity: Gone Worsened By: Nothing Relieved By: Nothing Associated Symptoms: Positive for Acid Reflux; Negative for Nausea, Vomiting, Diaphoresis, Dyspnea, Cough, Fever, Lightheadedness or Palpitations Narrative Narrative: Patient presents with chest pain that has been intermittent over the past 1 to 2 days. Patient describes the pain as a tightness. Patient states it is over the substernal and radiates to the left chest. Patient states it is intermittent. Patient denies any pain at present time. Patient states nothing makes it better nothing makes it worse. Patient admits to some acid reflux symptoms. Patient denies any shortness of breath or cough. Patient denies any nausea or vomiting. Patient denies any diaphoresis. Patient denies any palpitations. CVD Risk Factors: Positive for Hypertension and Hypercholesterolemia; Negative for Diabetes, Family History 1' </=55 or Smoking PE Risk Factors: Negative for Recent Travel/Surgery, Recent Immobilization, Prior DVT or PE, Cancer or OCP + Smoking + >/=35 PFSH [facility] Medical History Alzheimer's dementia History of non-ST elevation myocardial infarction (NSTEMI) (05/01/13) Right inguinal hernia Hyperlipidemia Essential hypertension Peripheral vascular disease Atherosclerosis of coronary artery without angina pectoris Home Medications ?Medication ?Instructions ?Recorded ?Last Taken ?Type aspirin 81 mg chewable tablet 81 mg PO DAILY@0800 02/12/17 02/12/17 History finasteride 5 mg tablet 5 mg PO DAILY 08/13/20 Unknown History memantine 10 mg tablet 5 mg PO BID 08/13/20 Unknown History mirabegron 50 mg tablet,extended 50 mg PO DAILY 08/13/20 Unknown History release 24 hr tamsulosin 0.4 mg capsule 0.4 mg PO DAILY 08/13/20 Unknown History nitroglycerin 0.4 mg sublingual 0.4 mg sublingual Q5-15M PRN chest 12/03/22 Unknown Rx tablet pain #25 tabs clopidogrel 75 mg tablet 75 mg PO DAILY #90 tabs 03/30/23 Unknown Rx losartan 50 mg tablet 50 mg PO DAILY #90 tabs 05/11/23 Unknown Rx fluticasone propionate 50 2 spray intranasal DAILY PRN 06/09/23 Unknown History mcg/actuation nasal spray,suspension (Flonase Allergy Relief) atorvastatin 40 mg tablet See Rx Instructions .Route 06/20/23 Unknown Rx .COMPLEX #45 tabs Allergy/AdvReac Type Severity Reaction Status Date / Time mold Allergy Intermediate nasal Verified 11/09/23 15:11 congestion, etc. pollen extracts Allergy Intermediate nasal Verified 11/09/23 15:11 congestion, etc. ticagrelor (From Brilinta) Allergy Intermediate Rash Verified 11/09/23 15:11 doxycycline Allergy Rash Verified 11/09/23 15:11 Family History Brother Cancer prostate Father Aplastic anemia Surgical History History of transurethral resection of prostate (~1994) Status post correction of deviated nasal septum (~1997) History of uvulopalatopharyngoplasty (~1997) History of tonsillectomy (~1997) History of rotator cuff surgery (~2003) History of left inguinal hernia repair (~2009) Hx of right inguinal hernia repair (06/21/18) History of left heart catheterization (05/01/13) Stented coronary artery (06/21/13) Social History Smoking Status: Never smoker alcohol intake: current alcohol intake frequency: a few times a month Alcohol type: beer substance use type: does not use caffeine: Yes Type: coffee Number of servings: 2 ROS ROS ED Constitutional Constitutional ED: Denies chills or fever(s) Eyes Eyes: Denies blurry vision or change in vision ENT ENT ED: Denies rhinorrhea or sore throat Cardiovascular Cardiovascular: Reports as per HPI and chest pain; Denies palpitations Respiratory/Chest Respiratory/Chest: Reports dyspnea; Denies cough Gastrointestinal Gastrointestinal: Reports nausea; Denies abdominal pain or vomiting Genitourinary Genitourinary ED: Denies dysuria or hematuria Musculoskeletal Musculoskeletal: Denies back pain or neck pain Integumentary Denies abscess or rash Neurologic Neurologic: Denies headache(s) or weakness Allergic/Immunologic Allergic/Immunologic ED: Denies mouth swelling or urticaria EXAM Physical Exam Const Vital Signs: 11/09/23 15:08 11/09/23 15:50 11/09/23 16:07 Temperature 96.1 F L Temperature Source Temporal Pulse Rate 71 61 Respiratory Rate 16 17 Respiratory Effort Normal Blood Pressure 136/80 H 123/74 H Blood Pressure Mean 98 90 Pulse Ox 97 97 Oxygen Delivery Method Room Air Room Air 11/09/23 17:00 11/09/23 17:28 11/09/23 17:30 Temperature Temperature Source Pulse Rate 59 L 59 L 57 L Respiratory Rate 18 15 14 Respiratory Effort Blood Pressure 134/80 H 156/86 H Blood Pressure Mean 98 105 Pulse Ox 98 99 99 Oxygen Delivery Method Room Air 11/09/23 17:45 11/09/23 17:46 11/09/23 18:00 Temperature Temperature Source Pulse Rate 59 L 57 L 59 L Respiratory Rate 16 22 H 16 Respiratory Effort Blood Pressure 139/90 H 145/87 H Blood Pressure Mean 97 106 Pulse Ox 99 98 Oxygen Delivery Method Room Air 11/09/23 18:00 11/09/23 18:15 11/09/23 18:30 Temperature Temperature Source Pulse Rate 59 L 60 Respiratory Rate 17 13 Respiratory Effort Blood Pressure 145/87 H 161/93 H 155/128 H Blood Pressure Mean 102 113 138 Pulse Ox 97 98 Oxygen Delivery Method 11/09/23 18:45 11/09/23 19:00 11/09/23 19:09 Temperature 97.2 F L Temperature Source Pulse Rate 62 Respiratory Rate 18 Respiratory Effort Blood Pressure 161/91 H 162/88 H 148/75 H Blood Pressure Mean 110 111 99 Pulse Ox 87 100 98 Oxygen Delivery Method Positive well nourished and well developed General Appearance ED: well developed and NAD HEENT Reports moist mucous membranes Neck supple and no JVD Chest Wall inspection of chest normal and palpation of chest normal Resp normal respiratory effort and clear to auscultation bilaterally Cardio regular rate and regular rhythm GI soft to palpation, non-tender and non-distended Neuro oriented x3, CN's II-XII intact bilaterally and no sensory deficits noted Sensorium / Orientation: awake and alert Motor Exam: strength 5/5 throughout Psych mental status grossly normal Heart Score History: Slightly/Non-Suspicious Age: >/= 65 years Risk Factors: >/= 3 Risk Factors or History of CAD Score: 4 MDM MDM MDM Narrative Medical decision making narrative: Electrolyte abnormality, pneumonia, pneumothorax, peptic ulcer disease, and anxiety. EKG will be obtained to assess for cardiac dysrhythmia and cardiac ischemia. Chest x-ray will be obtained to assess for pneumonia and pneumothorax. CBC will be obtained to assess for leukocytosis and anemia. Bas ic metabolic profile will be obtained to assess for electrolyte abnormality and renal function. High-sensitivity troponin will be obtained to assess for cardiac ischemia. Patient has a Wells score of 0. I do not feel this is from a pulmonary embolus. Lab Data Attestation: I reviewed the patient's lab results. Lab results narrative: CBC was reviewed and was essentially within normal limits. Basic metabolic profile was reviewed and was within normal limits. High-sensitivity troponin was reviewed and was normal at 7. Labs: Laboratory Results - last 24 hr 11/09/23 15:55 WBC 4.8 RBC 3.97 L Hgb 12.7 L Hct 39.1 L MCV 98.5 H MCH 32.0 MCHC 32.5 RDW Std Deviation 55.8 H RDW Coeff of Margaret 15.4 H Plt Count 157 MPV 9.8 Immature Gran % (Auto) 0.400 Neut % (Auto) 69.0 Lymph % (Auto) 18.2 L [place] % (Auto) 8.2 Eos % (Auto) 4.0 Baso % (Auto) 0.2 Absolute Neuts (auto) 3.3 Absolute Lymphs (auto) 0.87 Nucleated RBC % 0 Sodium 140 Potassium 3.7 Chloride 108 H Carbon Dioxide 27.0 Anion Gap 5 BUN 18 Creatinine 0.95 Estim Creat Clear Calc 66.17 Est GFR (MDRD) Af Amer 99 Est GFR (MDRD) Non-Af 82 BUN/Creatinine Ratio 19.0 Glucose 100 Calcium 8.9 Troponin I High Sens 7 Radiography Chest X-Ray - ED: 2 View, Read by ED Physician, Read by Radiologist and No Acute Disease Diagnostic Testing: Clinical Impression(s) from Imaging Studies Chest X-Ray 11/09/23 16:50 IMPRESSION: No radiographic evidence of acute cardiopulmonary disease. Electronically Signed: Anil Diallo MD at 17:45 EDT , PA and lateral chest x-ray was obtained. There are 2 views. On my independent interpretation, lung kim are clear. There is normal cardiac silhouette. Bony thorax is normal. There is no acute process noted. Radiologist also interpreted the x-ray and agrees. EKG Initial EKG: Attestation: I personally reviewed and interpreted this EKG as follows: Interpretation: No Acute Injury Pattern and Sinus Bradycardia (59) Comments: EKG was obtained. On my independent interpretation, it showed a sinus bradycardia with a rate of 59. AL interval, QRS interval, and QTc intervals were all normal. [place] was normal. There are no acute ST or T wave changes. Prior EKG tracings: available for review Prior: Unchanged (07/13/2023) Treatment and Re-Evaluation :: Patient normally takes aspirin and Plavix at home. Patient took this earlier today. Patient was advised of his findings. Upon review of previous records, patient did have a normal stress test on 07/13/2023. Patient has a HEART score of 4. Patient was instructed to follow-up with his primary care physician in 5 to 7 days. Patient was instructed to return if worse in any way. Patient understood and was agreeable with the plan. All questions were answered. Discharge Plan Triage Chief Complaint: Chest Pain ED Provider: Kin Bailey Dx/Rx/DC Orders Clinical Impression: Chest pain, Alzheimer's dementia, Essential hypertension Instructions: ED Chest Pain, Uncertain Cause Prescriptions: No Action fluticasone propionate [Flonase Allergy Relief] 50 mcg/actuation spray,suspension 2 spray INTRANASAL DAILY PRN tamsulosin 0.4 mg capsule 0.4 mg PO DAILY Patient Comments: TAKE 1 CAPSULE BY MOUTH ONCE DAILY AT BEDTIME finasteride 5 mg tablet 5 mg PO DAILY memantine 10 mg tablet 5 mg PO BID mirabegron 50 mg tablet extended release 24 hr 50 mg PO DAILY nitroglycerin 0.4 mg tablet, sublingual 0.4 mg SUBLINGUAL Q5-15M PRN (Reason: chest pain) Qty: 25 3RF aspirin 81 MG tablet,chewable 81 mg PO DAILY@0800 clopidogrel 75 mg tablet 75 mg PO DAILY Qty: 90 3RF losartan 50 mg tablet 50 mg PO DAILY Qty: 90 3RF atorvastatin 40 mg tablet See Rx Instructions .ROUTE .COMPLEX Qty: 45 3RF Dose Instruction: TAKE 1/2 (ONE-HALF) TABLET BY MOUTH ONCE DAILY AT BEDTIME Rx Instructions: TAKE 1/2 (ONE-HALF) TABLET BY MOUTH ONCE DAILY AT BEDTIME Primary Care Provider: Deven Ortiz Referrals: Deven Ortiz MD [Primary Care Provider] - 5-7 Days Print Language: Fijian Disposition Disposition: Home, Self Care Discharge Date/Time: 11/09/23 19:10
--- NOTE | 2023-11-09 16:44 | EKG12_ITS ---
Test Reason : CP Blood Pressure : / mmHG Vent. Rate : 059 BPM Atrial Rate : 059 BPM P-R Int : 198 ms QRS Dur : 094 ms QT Int : 436 ms P-R-T Axes : 044 037 045 degrees QTc Int : 431 ms Sinus bradycardia Inferior infarct , age undetermined Abnormal ECG Confirmed by GEORGINA CAICEDO, JULIENNE ([id number]), editor & co founder CYRIL AVELAR ([id number]) on 11/10/2023 10:23:56 AM Referred By: GIANCARLO/CITLALI Confirmed By:JULIENNE ERICKSON MD
--- NOTE | 2023-11-09 16:50 | RAD_ITS ---
INDICATION: Chest pain EXAMINATION/TECHNIQUE: X-RAY - XR Chest 2 Views COMPARISON: April 24, 2013. FINDINGS: LINES/DEVICES: None. LUNGS: No consolidation, edema or effusion. No pneumothorax. MEDIASTINUM AND CARDIOVASCULAR STRUCTURES: Cardiac silhouette not enlarged. Aortic atherosclerosis. BONES AND SOFT TISSUES: Moderate thoracolumbar bridging osteophytes.. RAD/Chest PA and Lateral IMPRESSION: No radiographic evidence of acute cardiopulmonary disease. Electronically Signed: Anil Diallo MD at 17:45 EDT ,
[2023-11-09 17:07] LABS: Absolute Lymphocyte Count 0.87 X10^3/uL (0.83-4.51); Absolute Neutrophil Count 3.3 X10^3/uL (2.0-7.7); Basophil# 0.01 X10^3/uL; Basophil% 0.2 % (0-1); Eosinophil# 0.19 X10^3/uL; Hematocrit 39.1 % (40-54); Hemoglobin 12.7 g/dL (13.0-16.5); Lymphocyte # 0.87 X10^3/ul (0.83-4.51); Lymphocyte % 18.2 % (19-41); Mean Corp Hgb Conc 32.5 g/dL (32-36); Mean Corpuscular Volume 98.5 fL (80-94); Mean Platelet Vol. 9.8 fl (6.2-12.0); Monocyte# 0.39 X10^3/uL; Monocyte% 8.2 % (0-10); NRBC Flagged by Analyzer 0 % (0-5); Neutrophil # 3.29 X10^3/uL (2.7-7.7); Platelet Count 157 K/mm3 (150-450); RBC Distribution Width CV 15.4 % (11.6-14.6); RBC Distribution Width SD 55.8 fl (35.1-43.9); Red Blood Count 3.97 M/mm3 (4.6-6.2); White Blood Count 4.8 K/mm3 (4.4-11.0)
[2023-11-09 17:15] LABS: Anion Gap 5 (5-15); BUN 18 mg/dL (7-18); Calcium,Total 8.9 mg/dL (8.5-10.1); Chloride 108 mmol/L (98-107); Creatinine, Serum 0.95 mg/dL (0.70-1.30); EST Glomerular Filtration Rate 82 mL/min (>60); Est Glom Filt Rate - Afr Amer 99 mL/min (>60); Estimated Creatinine Clearance 66.17 ml/min; Glucose 100 mg/dL (74-106); Potassium 3.7 mmol/L (3.5-5.1); Sodium Level 140 mmol/L (136-145); Troponin-I HS 7 pg/mL (3.0-78.0)
== END 2023-11-09 19:10 | disposition home or self-care (01) ==
PROVIDERS: Emergency Provider Emergency Medicine; PCP Family Medicine; Visit Provider Emergency Medicine
DX: R07.9 Chest pain, unspecified (principal); F02.80 Dementia in other diseases classified elsewhere, unspecified severity, without behavioral disturbance, psychotic disturbance, mood disturbance, and anxiety; G30.9 Alzheimer's disease, unspecified; E78.00 Pure hypercholesterolemia, unspecified; F41.9 Anxiety disorder, unspecified; I10 Essential (primary) hypertension; R11.0 Nausea; R06.09 Other forms of dyspnea; Z95.5 Presence of coronary angioplasty implant and graft; E78.5 Hyperlipidemia, unspecified; I25.2 Old myocardial infarction; I25.10 Atherosclerotic heart disease of native coronary artery without angina pectoris; I73.9 Peripheral vascular disease, unspecified
CPT/HCPCS: 71046; 80048; 84484; 85025; 93005; 99284; A4216

== ENCOUNTER 2024-04-17 12:03 | Emergency (ER) | payer MEDICARE, OTHER, SELFPAY ==
[2024-04-17 12:03] VITALS: BP 130/78; PULSE 83; RESP 16; TEMP 36.6; O2SAT 97
--- NOTE | 2024-04-17 13:05 | EX.ED.DYSGE1 ---
HPI History of Present Illness Chief Complaint: Abd Pain [facility] Medical History (Reviewed 11/28/23 @ 10:40 by Minnie Hughes SENIOR ASIC DESIGN ENGINEER, SENIOR ASIC DESIGN ENGINEER-C) Alzheimer's dementia History of non-ST elevation myocardial infarction (NSTEMI) (05/01/13) Right inguinal hernia Hyperlipidemia Essential hypertension Peripheral vascular disease Atherosclerosis of coronary artery without angina pectoris Home Medications ?Medication ?Instructions ?Recorded ?Last Taken ?Type aspirin 81 mg chewable tablet 81 mg PO DAILY@0800 02/12/17 02/12/17 History finasteride 5 mg tablet 5 mg PO DAILY 08/13/20 Unknown History memantine 10 mg tablet 5 mg PO BID 08/13/20 Unknown History mirabegron 50 mg tablet,extended 50 mg PO DAILY 08/13/20 Unknown History release 24 hr tamsulosin 0.4 mg capsule 0.4 mg PO DAILY 08/13/20 Unknown History losartan 50 mg tablet 50 mg PO DAILY #90 tabs 05/11/23 Unknown Rx fluticasone propionate 50 2 spray intranasal DAILY PRN 06/09/23 Unknown History mcg/actuation nasal spray,suspension (Flonase Allergy Relief) atorvastatin 40 mg tablet See Rx Instructions .Route 06/20/23 Unknown Rx .COMPLEX #45 tabs nitroglycerin 0.4 mg sublingual 0.4 mg sublingual Q5-15M PRN chest 11/28/23 Unknown Rx tablet pain #25 tabs clopidogrel 75 mg tablet 75 mg PO DAILY #90 TABLETS 04/12/24 Unknown Rx Allergy/AdvReac Type Severity Reaction Status Date / Time mold Allergy Intermediate nasal Verified 04/17/24 12:04 congestion, etc. pollen extracts Allergy Intermediate nasal Verified 04/17/24 12:04 congestion, etc. ticagrelor (From Brilinta) Allergy Intermediate Rash Verified 04/17/24 12:04 doxycycline Allergy Rash Verified 04/17/24 12:04 Family History (Reviewed 11/28/23 @ 10:40 by Minnie Hughes SENIOR ASIC DESIGN ENGINEER, SENIOR ASIC DESIGN ENGINEER-C) Brother Cancer prostate Father Aplastic anemia Surgical History History of transurethral resection of prostate (~1994) Status post correction of deviated nasal septum (~1997) History of uvulopalatopharyngoplasty (~1997) History of tonsillectomy (~1997) History of rotator cuff surgery (~2003) History of left inguinal hernia repair (~2009) Hx of right inguinal hernia repair (06/21/18) History of left heart catheterization (05/01/13) Stented coronary artery (06/21/13) Social History (Reviewed 11/28/23 @ 10:40 by Minnie Hughes SENIOR ASIC DESIGN ENGINEER, SENIOR ASIC DESIGN ENGINEER-C) Smoking Status: Never smoker alcohol intake: current alcohol intake frequency: a few times a month Alcohol type: beer substance use type: does not use caffeine: Yes Type: coffee Number of servings: 2 EXAM Physical Exam Const Vital Signs: 04/17/24 12:03 04/17/24 14:03 04/17/24 15:50 Temperature 98 F 97 F L Temperature Source Temporal Pulse Rate 83 84 81 Respiratory Rate 16 16 14 Blood Pressure 130/78 H 157/86 H Blood Pressure Mean 95 109 Pulse Ox 97 98 95 Oxygen Delivery Method Room Air Room Air MDM MDM MDM Narrative Medical decision making narrative: HISTORY OF PRESENT ILLNESS: 78-year-old male presents with uncontrollable diarrhea and abdominal pain. He states this began yesterday. Patient denies abdominal pain fever confusion. Notes loose stools. No melena hematochezia noted. REVIEW OF SYSTEMS: Pertinent positives: Diarrhea Pertinent negatives: Abdominal pain, chest pain, vomiting, fever, confusion PHYSICAL EXAM: Nursing triage notes reviewed, Vital signs reviewed Constitutional: please see mdm HENT: MMM no scleral icterus Eyes: Pupils equal round and reactive to light, Extraocular muscles intact Neck: No stridor, no JVD, full neck ROM Lungs: Clear to auscultation, No wheezing or rales. No increased work of breathing, no conversational dyspnea, no accessory muscle use, no nasal flaring. No respiratory distress noted Heart: Regular rate and rhythm, No murmurs, No rubs and No gallops, 2+ distal pulses (radial, femoral, posterior tibial) in all extremities Abdomen: Soft, there is no tenderness, no right upper quadrant tenderness, rigidity, rebound or guarding, no obvious peritoneal signs, no palpable pulsatile abdominal masses, no auscultated abdominal bruit : No CVAT Extremities: No edema Neuro: No focal neurological deficits, alert and oriented to person and place but not time which is baseline, cranial nerves II through XII intact, 5/5 strength in all extremities. Intact sensation to light touch in all extremities, 2+ reflexes bilateral patella tendons. Skin: No rash or lesions noted, no jaundice MEDICAL DECISION MAKING: Chief Complaint: Abdominal pain, diarrhea External records reviewed: Reviewed prior imaging studies: No recent advanced imaging of the abdomen pelvis Factors affecting care: n Alzheimer's disease, peripheral vascular sees, hypertension, hyperlipidemia Social determinants of health: Elderly, history of dementia History obtained from others: none Consults: none MDM Narrative: The patient was initially hemodynamically stable, afebrile and nontoxic-appearing. Abdominal exam benign. Not consistent with acute surgical pathology I considered the following differential diagnosis: Dehydration, electrolyte disturbance, C. difficile, obstruction, perforation I obtained a broad lab workup to further elucidate the etiology the patient's complaints. Also obtain an EKG to rule out signs of cardiac arrhythmia I considered obtaining CT scan of the abdomen pelvis however patient is abdominal exam is completely benign he had no pain. He is passing stool and having bowel movements. Not having nausea or vomiting. Low suspicion for obstruction at this time. Discussed my clinical suspicion with the patient and and they agree to forego imaging at this time ALL IMAGES (IF OBTAINED) HAVE BEEN PERSONALLY REVIEWED AND INTERPRETED BY MYSELF. BMP with mild hyponatremia otherwise no significant electrolyte abnormalities, no signs of acute kidney injury, metabolic acidosis or endorgan hypoperfusion. LFTs with mild elevation in bilirubin which is unexplained but did not suspect related to a obstructive hepatobiliary pathology given lack of upper quadrant tenderness, jaundice, fever. CBC with leukocytosis suggestive of systemic inflammation, mild anemia similar to baseline, mild thrombocytopenia similar to baseline Lipase elevated consistent with mild pancreatic inflammation but not consistent with acute pancreatitis given no pain in lab reference not being greater than 3 times upper limit of normal given elevated white blood cell count obtain a CT scan to rule out any acute surgical intra-abdominal abnormalities CT scan was negative Repeat abdominal exam is benign. The patient is appropriate discharge home The patient and/or family, caregivers express understanding. The patient and/or family, caregivers agrees with the plan. Shared decision making: I will have a discussion with the patient and or visitors regarding risk/benefits of further testing or admission. They will be made aware of of the risk/benefits inherent in this decision they will be given the opportunity to voice understanding. Total critical care time today provided was at least 0 minutes. This excludes separately billable procedures. Critical care time (if documented) is secondary to the patient having high probability of clinically significant/life threatening deterioration in the patient's condition which required my urgent intervention. Impression: 1. Diarrhea 2. Hyponatremia 3. Hyperbilirubinemia 4. Thrombocytopenia Dispo: Discharge This note was generated with DecideQuick dictation software. It may contain incorrect words, spelling, and punctuation that were not noted in review of the chart prior to signing. Lab Data Labs: Laboratory Results - last 24 hr 04/17/24 04/17/24 12:20 14:35 WBC 14.7 H RBC 3.85 L Hgb 12.4 L Hct 37.3 L MCV 96.9 H MCH 32.2 H MCHC 33.2 RDW Std Deviation 55.4 H RDW Coeff of Margaret 15.7 H Plt Count 143 L MPV 10.0 Immature Gran % (Auto) 0.900 Neut % (Auto) 87.1 H Lymph % (Auto) 4.8 L [place] % (Auto) 6.9 Eos % (Auto) 0.1 Baso % (Auto) 0.2 Absolute Neuts (auto) 12.8 H Absolute Lymphs (auto) 0.71 L Nucleated RBC % 0 Sodium 135 L Potassium 3.7 Chloride 102 Carbon Dioxide 27.0 Anion Gap 7 BUN 21 H Creatinine 1.04 Est GFR (MDRD) Af Amer 89 Est GFR (MDRD) Non-Af 73 BUN/Creatinine Ratio 20.2 H Glucose 105 Calcium 8.8 Total Bilirubin 1.40 H AST 44 H ALT 33 Alkaline Phosphatase 67 Total Protein 7.0 Albumin 3.7 Globulin 3.3 Albumin/Globulin Ratio 1.1 Lipase 86 H Urine Color Straw Urine Clarity Clear Urine pH 7.0 Ur Specific [place] 1.010 Urine Protein Negative Urine Glucose (UA) Normal Urine Ketones Negative Urine Occult Blood 10 H Urine Nitrite Negative Urine Bilirubin Negative Urine Urobilinogen Normal Ur Leukocyte Esterase Negative Urine RBC 0 SEEN Urine WBC 0 SEEN Ur Squamous Epith Cells 0 SEEN Urine Bacteria 0 SEEN Urine Mucus 0 SEEN Radiography Diagnostic Testing: Clinical Impression(s) from Imaging Studies Abdomen/Pelvis CT 04/17/24 14:02 IMPRESSION: No suspicious solid organ abnormality Small bowel ileus No free intraperitoneal fluid, air, or suspicious adenopathy Electronically Signed: Daniel Potts MD at 14:47 EST Reading Location ID and State: [facility] / [place] , Service support , Discharge Plan Triage Chief Complaint: Abd Pain ED Provider: Kenan Márquez Dx/Rx/DC Orders Clinical Impression: Diarrhea Instructions: ED Diarrhea, Unknown Cause Prescriptions: No Action fluticasone propionate [Flonase Allergy Relief] 50 mcg/actuation spray,suspension 2 spray INTRANASAL DAILY PRN tamsulosin 0.4 mg capsule 0.4 mg PO DAILY Patient Comments: TAKE 1 CAPSULE BY MOUTH ONCE DAILY AT BEDTIME finasteride 5 mg tablet 5 mg PO DAILY memantine 10 mg tablet 5 mg PO BID mirabegron 50 mg tablet extended release 24 hr 50 mg PO DAILY nitroglycerin 0.4 mg tablet, sublingual 0.4 mg SUBLINGUAL Q5-15M PRN (Reason: chest pain) Qty: 25 3RF aspirin 81 MG tablet,chewable 81 mg PO DAILY@0800 losartan 50 mg tablet 50 mg PO DAILY Qty: 90 3RF atorvastatin 40 mg tablet See Rx Instructions .ROUTE .COMPLEX Qty: 45 3RF Dose Instruction: TAKE 1/2 (ONE-HALF) TABLET BY MOUTH ONCE DAILY AT BEDTIME Rx Instructions: TAKE 1/2 (ONE-HALF) TABLET BY MOUTH ONCE DAILY AT BEDTIME clopidogrel 75 mg tablet 75 mg PO DAILY Qty: 90 3RF Primary Care Provider: Deven Ortiz Referrals: Deven Ortiz MD [Primary Care Provider] - Activity Restrictions/Additional Instructions: Thank you for trusting us with your care today! Your labs images were reassuring. Specifically there is no signs of obstructions on your CT scan. Your kidneys and electrolytes are stable and showed no signs of significant abnormality secondary to your diarrhea. Please drink approximate ounces of electrolyte containing solution with every loose stool that you have. I recommend Body Armor, Pedialyte or Gatorade. Please take Tylenol (2 pills, 650 mg), ibuprofen (2 pills, 400 mg) every 6 hours as needed for pain and fever control. Please return to the emergency department if your symptoms change or worsen. Specifically develop severe pain, vomiting, fever, bloody stools. Please follow with your primary care physician for further outpatient evaluation and management. Print Language: Danish Disposition Disposition: Home, Self Care Discharge Date/Time: 04/17/24 15:58
[2024-04-17 13:17] LABS: Lipase 86 U/L (13-75)
[2024-04-17 13:49] LABS: ALB/GLOB Ratio 1.1 RATIO (0.9-2.4); AST(SGOT) 44 U/L (15-37); Absolute Lymphocyte Count 0.71 X10^3/uL (0.83-4.51); Absolute Neutrophil Count 12.8 X10^3/uL (2.0-7.7); Alanine Aminotransfer ALT/SGPT 33 U/L (16-61); Albumin, Serum 3.7 g/dL (3.2-5.0); Alkaline Phosphatase 67 U/L (45-117); Anion Gap 7 (5-15); BUN 21 mg/dL (7-18); BUN/Creat Ratio 20.2 RATIO (10-20); Basophil# 0.03 X10^3/uL; Basophil% 0.2 % (0-1); Calcium,Total 8.8 mg/dL (8.5-10.1); Chloride 102 mmol/L (98-107); Creatinine, Serum 1.04 mg/dL (0.70-1.30); EST Glomerular Filtration Rate 73 mL/min (>60); Eosinophil# 0.01 X10^3/uL; Eosinophils% 0.1 % (0-5); Est Glom Filt Rate - Afr Amer 89 mL/min (>60); Globulin 3.3 g/dL (2.2-4.2); Glucose 105 mg/dL (74-106); Hematocrit 37.3 % (40-54); Hemoglobin 12.4 g/dL (13.0-16.5); Lymphocyte # 0.71 X10^3/ul (0.83-4.51); Lymphocyte % 4.8 % (19-41); Mean Corp Hgb Conc 33.2 g/dL (32-36); Mean Corpuscular Hgb 32.2 pg (27.0-32.0); Mean Corpuscular Volume 96.9 fL (80-94); Monocyte# 1.01 X10^3/uL; Monocyte% 6.9 % (0-10); NRBC Flagged by Analyzer 0 % (0-5); Neutrophil # 12.81 X10^3/uL (2.7-7.7); Neutrophil % 87.1 % (47-70); Platelet Count 143 K/mm3 (150-450); Potassium 3.7 mmol/L (3.5-5.1); RBC Distribution Width CV 15.7 % (11.6-14.6); RBC Distribution Width SD 55.4 fl (35.1-43.9); Red Blood Count 3.85 M/mm3 (4.6-6.2); Sodium Level 135 mmol/L (136-145); White Blood Count 14.7 K/mm3 (4.4-11.0)
--- NOTE | 2024-04-17 14:02 | CT_ITS ---
STUDY: CT ABDOMEN AND PELVIS WITH CONTRAST REASON FOR EXAM: Male, 78 years old. Nausea/vomiting/diarrhea RADIATION DOSAGE (If Supplied By Facility): CTDIvol = ( 10.11 ) mGy, DLP = ( 943.28 ) mGycm TECHNIQUE: Transaxial images were obtained from the dome of the diaphragm to the symphysis pubis without oral contrast. IV 100mL Isovue-370 was administered. Sagittal and coronal images were reconstructed. Individualized dose optimization techniques were used for this CT. COMPARISON: None. FINDINGS: The visualized lung bases are unremarkable. The visualized portions of the heart are within normal limits. Normal liver. Normal gallbladder and extrahepatic biliary system. Normal spleen. Normal pancreas. Normal bilateral adrenal glands. Normal right kidney. Normal left kidney. Normal visualized stomach. Nondistended fluid-filled small bowel loops suggestive of ileus. Normal colon. There is non-visualization of the appendix. Normal abdominal aorta. Normal inferior vena cava. Normal retroperitoneum. Normal urinary bladder. Normal abdominal wall. There are diffuse degenerative changes of the visualized lumbar spine, and pelvis. CT/Abdomen/Pelvis W IV Cont ONLY IMPRESSION: No suspicious solid organ abnormality Small bowel ileus No free intraperitoneal fluid, air, or suspicious adenopathy Electronically Signed: Daniel Potts MD at 14:47 EST ,
[2024-04-17 14:03] VITALS: PULSE 84; RESP 16; O2SAT 98
[2024-04-17] MEDS: 0.9% Normal Saline (1000mL) 1,000 ML 999 ML IV (14:14)
[2024-04-17 14:39] LABS: Bacteria 0 SEEN /hpf (None Seen); Mucous, Urine 0 SEEN /hpf (<or=2+); Red Blood Cells-Urine 0 SEEN /hpf (0-5); Squamous Epithelial Cells - UA 0 SEEN /hpf (0-5); White Blood Cells 0 SEEN /hpf (0-5)
[2024-04-17 14:41] LABS: Color, Urine Straw (Yellow); Glucose, Dipstick Normal (Normal); Ketone-Dipstick Negative (Negative); Leukocyte Esterase-Dipstick Negative /ul (Negative); Nitrite-Dipstick Negative (Negative); Occult Blood-Urine 10 /ul (Negative); Protein-Dipstick Negative (Negative); Urine Bilirubin Dipstick Negative (Negative); Urine Clarity Clear (Clear); Urine Urobilinogen Normal (Normal)
[2024-04-17 15:50] VITALS: BP 157/86; PULSE 81; RESP 14; TEMP 36.1; O2SAT 95
== END 2024-04-17 15:58 | disposition home or self-care (01) ==
PROVIDERS: Emergency Provider Emergency Medicine; PCP Family Medicine; Visit Provider Emergency Medicine
DX: R19.7 Diarrhea, unspecified (principal); G30.9 Alzheimer's disease, unspecified; F02.80 Dementia in other diseases classified elsewhere, unspecified severity, without behavioral disturbance, psychotic disturbance, mood disturbance, and anxiety; E87.1 Hypo-osmolality and hyponatremia; E80.6 Other disorders of bilirubin metabolism; I25.10 Atherosclerotic heart disease of native coronary artery without angina pectoris; I10 Essential (primary) hypertension; D69.6 Thrombocytopenia, unspecified; E78.5 Hyperlipidemia, unspecified
CPT/HCPCS: 74177; 80053; 81001; 83690; 85025; 93005; 96360; 99282; J7030; Q9967; A4216